=== PATIENT | male | born 1940 | race Caucasian/White ===

== ENCOUNTER 2019-11-25 06:25 | Day surgery (SDC) | payer OTHER, MEDICARE ==
--- OUTSIDE RECORDS SUMMARY | 2019-11-25 06:29 | XMS REPORT | Continuity of Care Document ---
:1940 Author Organization [facility] t Address [facility] [place] [address] Care Team Providers Name Role Phone Sue Hicks DO Primary Care Physician Juan REDD R. Attending Clinician Lisa Lawrence MA Attending Clinician Unavailable Kailey MALAVE Attending Clinician Unavailable Octavio REDD T Attending Clinician JUAN Admitting Clinician Unavailable Payers Payer Name Policy Policy Number Effective Expiration Source Type Date Date MEDICAREMEDICARE PART xxxxxxxxxxx 2003 Kareem Bueno AND 00:00:00 Scientologist [place]/03/2003[place] [facility] [place] x[facility]xx 2017 [place] SUPPLEMENTxxxxxxxxxxx 00:00:00 Met juanpablo 2017-Oliver rcial Problems Condition Condition Condition Status Onset Resolution Last Treating Co mments Source Name Details Category Date Date Treatment Clinician Date Abnormal Abnormal Disease Active [place] stress stress 6-19 [facility] test test 00:00: st 00 History of History of Disease Active [facility] [place] coronary coronary 1- Method i artery artery 00:00: st stent stent 00 placement placement Chest pain Chest pain Disease Active [place] - [facility] 00:00: st 00 SOB SOB Disease Active [place] (shortness (shortness 7-23 Me thodi of breath) of breath) 00:00: st 00 Coronary Coronary Disease Active [place] artery artery 02 [facility] disease disease 00:00: st involving involving 00 [place] coronary coronary artery of artery of [place] heart heart without without angina angina pectoris pectoris Hyperlipid Hyperlipid Disease Active 2015-03 H bar[place] emia emia 0-17 [facility] 00:00: st 00 Essential Essential Disease Active 2015-03 Y[facility] [address]on hypertensi hypertensi 0-17 Me thodi on on 00:00: st 00 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 Family History Family Member Diagnosis Comments Start Date Stop Date Source Natural brother CABG/Stent [facility] ramu Natural brother Heart attack [place] Scientologist Social History Social Habit Start Date Stop Date Quantity Comments Source Sex Assigned At [facility] Alcohol intake 2019-10-06 2019-10-06 [facility]:00:00 non-drinker of alcohol (finding) Smoking Status Start Date Stop Date Source Never smoker [place] Jo-Ann t Medications Ordered Filled Start Stop Current Ordering Indication Dosage Frequency Signature Comments Components Source Medication Medication Date Date Medication? Clinician (SIG) Name Name colesevelam 2020-0 Yes 1875mg Take 1,875 Franks (WELCHOL) 7-28 mg by [facility] 625 mg 13:08: mouth st tablet 05 daily. aspirin 2020-0 Yes aspirin 81 [place] (ECOTRIN) 7-28 mg [facility] 81 MG 13:08: tablet,del st enteric 05 ayed coated release tablet Take 1 tablet every day by oral route. calcium 2020-0 Yes 1{tbl} QD Take 1 [place] crb,cit-D3- 10-05 tablet by Met hodi [id number] 13:08: mouth st (CITRACAL + 05 daily. BONE DENSITY) 300-200-13. 5 mg-unit-mg tablet BIOTIN ORAL 2020-0 Yes [id number] QD Take Yves ston - 10,000 mcg Methodi 13:08: by mouth st 05 daily. BUMETanide 2020-0 Yes 1mg Q.5D Take 1 mg [place] (BUMEX) 1 10-05 by mouth 2 Meth jesica MG tablet 13:08: (two) st 05 times a day. potassium 2020-0 Yes 10meq Q.5D Take 10 [place] chloride 7-28 mEq by [facility] (MICRO-K) 13:08: mouth 2 st 10 MEQ CR 05 (two) capsule times a day. cycloSPORIN 2019-0 Yes 1[drp] QD Administer Franks E - 1 drop to [facility] (RESTASIS) 13:08: both eyes st 0.05 % 05 daily. ophthalmic emulsion INSULIN Yes Inject Franks SUBCUTANEOU 10-05 under the Met hodi S PUMP, 13:08: skin st HUMALOG, 05 continuous 100 ly. UNITS/ML INSULIN PUMP INFUSION (HumaLOG) cyanocobala 2020- No 1mL 1 mL. [place] min 1,000 09-02 06-25 [facility] mcg/mL 11:11: 00:00 st injection 39 :00 amLODIPine Yes 10mg Q.5D Take 1 [place] (NORVASC) -22 tablet (10 Meth jesica 10 mg 00:00: mg total) st tablet 00 by mouth 2 (two) times a day. gabapentin Yes 1200mg Q.5D Take 1,200 [facility] (NEURONTIN) 1-10 mg by [facility] 300 mg 00:00: mouth 2 st capsule 00 (two) times a day. omeprazole 2017- Yes [facility] (PriLOSEC) 5-01 [facility] 20 MG 00:00: st capsule 00 VASCEPA 1 Yes 1g QD Take 1 g [place] gram 07-07 by mouth [facility] capsule 00:00: daily. st 00 spironolact 2016- Yes 50mg Q.5D 50 mg 2 [place] one 07-07 (two) [facility] (ALDACTONE) 00:00: times a st 25 MG 00 day. tablet hydroCHLORO 2020- No 25mg Q.5D 25 mg 2 [place] thiazide 07-07- (two) [facility] (HYDRODIURI 00:00: 00:[address] L) 25 MG 00 :00 day. tablet amLODIPine 2020- No QD daily. [place] (NORVASC) 4-04 06-22 [facility] 10 mg 00:00: 00:00 st tablet 00 :00 SYNTHROID 2017- Yes 100ug QD Take 100 Y[facility] ston 100 mcg 3-01 mcg by [facility] tablet 00:00: mouth st 00 daily. telmisartan 2020- No [place] (MICARDIS) 05-09 [facility] 80 MG 00:00: 00:00 st tablet 00 :00 escitalopra Yes 10mg QD Take 10 mg Franks m (LEXAPRO) 05-04 by mouth Meth jesica 10 MG 00:00: daily. st tablet 00 HUMALOG 100 2019- No [place] unit/mL 04-16 [facility] injection 00:00: 00:00 st 00 :00 Vital Signs Vital Name Observation Time Observation Value Comments Source Systolic blood 2019-10-06 13:07:00 139 mm[Hg] [place] Scientologist pressure Diastolic blood 2019-10-06 13:07:00 65 mm[Hg] Gabri[place] on Scientologist pressure Heart rate 2019-10-06 13:07:00 65 /min [place] Body height 2019-10-06 13:07:00 182.9 cm [place] Body weight 2019-10-06 13:07:00 109.317 kg [place] BMI 2019-10-06 13:07:00 32.69 kg/m2 [place] Respiratory rate 2019-09-03 15:00:00 14 /min [place] Scientologist Oxygen saturation in 2019-09-03 15:00:00 99 /min [place] Arterial blood by Pulse oximetry Body temperature 2019-09-03 13:40:00 36.11 Roslyn [place] Scientologist Procedures Procedure Date / Time Performed Performing Clinician Sourc e POC GLUCOSE 2019-09-03 13:45:00 Raegan Martinez odfreddy CV SELECTIVE CORONARY 2019-09-03 13:18:58 Raegan Martinez ANGIOGRAPHY ESTIMATED GFR 2019-09-03 11:43:00 Raegan Martinez Meth odist POC PANEL 2019-09-03 11:43:00 Raegan Martinez odfreddy BASIC METABOLIC PANEL 2019-09-03 11:40:00 Raegan Martinez Scientologist ESTIMATED GFR 2019-09-03 11:40:00 Raegan Martinez odist POC GLUCOSE 2019-09-03 10:44:00 Raegan Martinez Meth odfreddy TTE COMPLETE, WO 2019-08-28 13:53:00 Raegan Martinez Met hodist CONTRAST, W DOPPLER ([id number]) COMPREHENSIVE METABOLIC 2019-08-28 12:48:00 Raegan Martinez Scientologist PANEL HC COMPLETE BLD COUNT 2019-08-28 12:48:00 Raegan Martinez Scientologist W/AUTO DIFF PROTHROMBIN TIME WITH INR 2019-08-28 12:48:00 Raegan Martinez [place] Scientologist ESTIMATED GFR 2019-08-28 12:48:00 Raegan Martinez Meth odist ECG 12-LEAD 2019-08-28 11:24:35 Raegan Martinez Meth odist Plan of Care Planned Activity Planned Date Details Comments Source Future Scheduled 2019-11-10 INFLUENZA VACCINE [place] Scientologist Test 00:00:00 [code = INFLUENZA VACCINE] Future Scheduled 2003 65+ PNEUMOCOCCAL [place] Scientologist Test 00:00:00 VACCINE (1 of 2 - PCV13) [code = 65+ PNEUMOCOCCAL VACCINE (1 of 2 - PCV13)] Future Scheduled 1988 SHINGLES VACCINES (#1) [place] Scientologist Test 00:00:00 [code = SHINGLES VACCINES (#1)] Future Scheduled 1948 DIABETIC FOOT EXAM [place] Scientologist Test 00:00:00 [code = DIABETIC FOOT EXAM] Future Scheduled 1948 URINE MICROALBUMIN [place] Scientologist Test 00:00:00 [code = URINE MICROALBUMIN] Future Scheduled 1938 DIABETIC RETINAL EYE Y[facility] st[place] Scientologist Test 00:00:00 EXAM [code = DIABETIC RETINAL EYE EXAM] Encounters Start End Encounter Admission Attending Care Care Encounter Source Date/Time Date/Time Type Type Clinicians Facility Department ID 2019-10-06 2019-10-06 Outpatient [facility] [id number] [place] 00:00:00 00:00:00 RAEGAN [address] 2019-09-03 2019-09-03 Outpatient [facility] [id number] [place] 00:00:00 00:00:00 RAEGAN [address] 2019-08-28 2019-08-28 Outpatient [facility] [id number] 356 [place] 00:00:00 00:00:00 RAEGAN [address] 2019-08-28 2019-08-28 [facility] [id number] 279 [place] 00:00:00 00:00:00 RAEGAN 729 Method i 2019-08-28 2019-08-28 Outpatient [facility] [id number] 356 [place] 00:00:00 00:00:00 RAEGAN [address] 2019-06-03 2019-07-28 Telemedici Octavio [facility] [id number] 08:33:49 08:57:17 ne Visit Romero Pritchett [id number] [place] [id number] [facility] [id number] nal 085 Building Results Test Description Test Time Test Comments Results Result Sourc e Comments 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 The right radial artery was located, skin was infiltrated was lidocaine. The artery was accessed using the Seldinger technique, and a 6F glidesheath was inserted. NTG and verapamil were administered intra-arterially via sheath. Heparin was administered intravenously. An AL1 catheter was advanced over a "baby-J" wire and selective coronary angiography was performed, standard views were obtained. The right radial sheath was removed and TR band was applied Findings: LM: normal LAD: proximal 60% stenosis; moderate diffuse diseaseLCx: mild diffuse disease; om2 with CORPORATE DIRECTOR OF H[employer] RESOURCES segmentRCA: anomalous take off. Moderate diffuse atherosclerosis with 40 and 50% stenosis in the mid and distal segments Recommendations:For now medical treatment of CADPatient is to FU with his PCP for the work up and treatment of anemia and CKD.Will FU as outpatient and decide on further revascularization (PCI vs CABG) options once anemia is better. Anesthesia Under my supervision, 2 mg of versed were administered intravenously for moderate sedation. Pulse oxymetry, heart rate and blood pressure were continuously measured by an independent trained observer present. I spent 14 minutes of face to face attendance with the patient during sedation. POC glucose 2019-09-03 13:47:32 Test Item Value Reference Range Interpretation Comme nts POC glucose (test code = 86 mg/dL 65-99 Ope rator Name: Lidia Cortez [id number]) ID: [id number] hartable: [facility] Notified NELA BuschistBasic metabolic [id number] 12:26:54 Test Item Value Reference Range Interpretation Comments Sodium (test code = 2951-2) 126 135- 148 mEq/L L Potassium (test code = 2823-3) 5.6 3.5- 5.0 mEq/L H Chloride (test code = 2075-0) 94 98- 112 mEq/L L CO2 (test code = 8-9) 19 24- 31 mEq/L L Anion gap (test code = 35674-1) 13@ANIO 7- 15 mEq/L BUN (test code = 3094-0) 23 mg/dL 8-23 Creatinine (test code = 2160-0) 1.60 mg/dL 0.7-1.2 H Glucose (test code = 2345-7) 83 mg/dL 65-99 Calcium (test code = 88657-9) 8.9 mg/dL 8.8-10.2 Lab Interpretation (test code = Abnormal 73397-8) [facility] [id number] 11:47:23 Test Item Value Reference Range Interpretation Comments POC sodium (test code = 127 mmol/L 135-148 L 2947-0) POC potassium (test 5.5 mmol/L 3.5-5 H code = 6298-4) POC chloride (test code 96 mmol/L 99-109 L = 2069-3) POC CO2 (test code = 20 mmol/L 24-31 L 79364-5) POC glucose (test code 82 mg/dL 65-99 = 2339-0) POC BUN (test code = 23 mg/dL 8-24 6299-2) POC creatinine (test 1.6 mg/dl 0.7-1.2 H code = 18208-2) POC hematocrit (test 26 % 41-51 L code = 4544-3) POC anion gap (test 17 mmol/L 8-20 Medical Technician Name: code = [id number]) Deyvi Childress Alfredo ID: [id number] Lab Interpretation Abnormal (test code = 20080-4) Franks MethodistEstimated [id number] 11:47:23 Test Item Value Reference Range Interpretation Comments Estimated GFR (test 40 mL/min/1.73 m2 A Caterg ory Units code = 45895-2) Interpretati onG1 >=90 Adela l or highG2 60-89 Mildly decrease dG3a 45-59 Mil dly to moderately decr iitxaJ5a 30-44 Moderately to s everely decreasedG4 15-29 Severe ly decreasedG5 <15 Kidney jemma Sayra eGFR was calcul ated using the Chron Kidney Disease Epidemiology Collaboration ( CKD-EPI) equation. Interpretation is based on recommendati ons of the National [facility]-Kidn ey Disease Outcome s Quality Initiat misa (NKF-KDOQI) pub lished in 2013. Lab Interpretation Abnormal (test code = 37391-3) Golden MethodistECG 12 [id number] 14:41:07 Test Item Value Reference Range Interpretation Comments Ventricular rate (test 66 code = 253) Atrial rate (test code 66 = 255) [place] interval (test code 202 = 266) QRSD interval (test 96 code = 260) QT interval (test code 402 = 264) QTC interval (test code 421 = 265) P axis 1 (test code = 40 267) QRS axis 1 (test code = -35 268) T wave axis (test code -6 = 270) EKG impression (test Normal sinus code = 273) rhythm-Left axis deviation-Minimal voltage criteria for LVH, may be normal variant-Nonspecific ST abnormality-Abnormal ECG-In automated comparison with ECG of 30-SEP-2018 13:41,-QRS duration has decreased-T wave inversion less evident in Inferior leads- Rfanks MethodistComprehensive metabolic [id number] 13:49:53 Test Item Value Reference Range Interpretation Comments Sodium (test code = 124 135- 148 mEq/L L 2951-2) Potassium (test code = 5.9 3.5- 5.0 mEq/L H 2823-3) Chloride (test code = 98 98- 112 mEq/L 5-0) CO2 (test code = 2027-9) 16 24- 31 mEq/L L Anion gap (test code = 10@ANIO 7- 15 mEq/L 19310-7) BUN (test code = 3094-0) 30 mg/dL 8-23 H Creatinine (test code = 1.53 mg/dL 0.7-1.2 H 2160-0) Glucose (test code = 103 mg/dL 65-99 H 2345-7) Calcium (test code = 9.1 mg/dL 8.8-10.2 74374-1) Protein (test code = 6.7 g/dL 6.3-8.3 -[place] n 2885-2) 4.6-7.0 g/dL1 week 4.4-7 .6 g/dL7 months-1y ear 5.1-7 .3 g/dL1-2 years 5.6-7 .5 g/dL>3 years 6.0-8 .0 g/yU30-942 6.3-8 .3 g/dL Albumin (test code = 3.2 g/dL 3.5-5 L 175-7) A/G ratio (test code = 0.9 0.7-3.8 1759-0) Alkaline phosphatase 111 U/L 40-129 (test code = 6768-6) AST (test code = 1920-8) 32 U/L 10-50 ALT (test code = 1742-6) 30 U/L 5-50 Total bilirubin (test 0.5 mg/dL 0-1.2 code = 1974-2) Lab Interpretation (test Abnormal code = 47429-9) Golden BuschistProthrombin time with [id number] 13:28:44 Test Item Value Reference Range Interpretation Comments Prothrombin time (test 15.1 11.5- 14.5 sec H code = 5902-2) INR (test code = 1.2 The Interna tional 85129-0) Normalized Rati o (INR) is a therapeuti c monitoring tool for patients who ar e stable on oral anticoagulant t herapy. An INR of 2.0-3 .0 is suggested for d eep vein thrombosis/pulm onary embolism. Lab Interpretation Abnormal (test code = 28303-0) Golden MethodistCBC with platelet and [id number] 13:15:52 Test Item Value Reference Range Interpretation Comments WBC (test code = 22916-8) 6.83 4.50- 11.00 k/uL RBC (test code = 41936-0) 2.83 m/uL 4.4-6 L HGB (test code = 718-7) 8.4 g/dL 14-18 L HCT (test code = 4544-3) 25.8 % 41-51 L MCV (test code = 787-2) 91.2 fL 82-100 MCH (test code = 785-6) 29.7 pg 27-34 MCHC (test code = 786-4) 32.6 g/dL 31-37 RDW - SD (test code = 49.1 fL 37-55 94935-5) MPV (test code = 06270-1) 9.0 fL 8.8-13.2 Platelet count (test code 258 150- 400 k/uL = 76120-7) Nucleated RBC (test code 0.00 /100 WBC = 26110-8) Neutrophils (test code = 77.0 % 39-69 H 96791-5) Lymphocytes (test code = 7.9 % 25-45 L 31129-0) Monocytes (test code = 12.9 % 0-10 H 59315-6) Eosinophils (test code = 1.5 % 0-5 03164-1) Basophils (test code = 0.3 % 0-1 22960-0) Immature granulocytes 0.4 % 0-1 "Immat ure (test code = 49314-3) granul ocytes" (promyelocytes, myelocytes, metamyelocytes) Lab Interpretation (test Abnormal code = 22932-8) Golden Deleon
--- OUTSIDE RECORDS SUMMARY | 2019-11-25 06:29 | XMS REPORT | Clinical Summary ---
:1940 Author Organization [facility] Address [address] [place] [address] Care Team Providers Name Role Phone Sue Hicks DO Primary Care Provider Allergies Active Allergy Reactions Severity Noted Date Comments No Known Drug Allergies 12/26/2015 Medications Medication Sig Dispensed Refills Start End Status Date Date colesevelam (WELCHOL) Take 1,875 mg 0 Active 625 mg tablet by mouth daily. escitalopram (LEXAPRO) Take 10 mg by 0 05/04/19 Active 10 MG tablet mouth daily. 17 VASCEPA 1 gram capsule Take 1 g by 0 07/08/19 Active mouth daily. 17 SYNTHROID 100 mcg Take 100 mcg 0 05/10/19 Active tablet by mouth 17 daily. omeprazole (PriLOSEC) 0 07/10/19 Active 20 MG capsule 17 spironolactone 50 mg 2 (two) 0 07/08/19 A ctive (ALDACTONE) 25 MG times a day. 17 tablet aspirin (ECOTRIN) 81 MG aspirin 81 mg tablet,delayed release 0 Active enteric coated tablet Take 1 tablet every day by oral route. calcium Take 1 tablet 0 Active crb,[id number]-[id number]-genis by mouth (CITRACAL + BONE daily. DENSITY) 300-200-13.5 mg-unit-mg tablet gabapentin (NEURONTIN) Take 1,200 mg 0 03/20/19 Active 300 mg capsule by mouth 2 20 (two) times a day. BIOTIN ORAL Take 10,000 0 Active mcg by mouth daily. amLODIPine (NORVASC) 10 Take 1 tablet 180 tablet 0 08/31/19 Active mg tablet (10 mg total) 20 by mouth 2 (two) times a day. BUMETanide (BUMEX) 1 MG Take 1 mg by 0 Active tablet mouth 2 (two) times a day. potassium chloride Take 10 mEq 0 Active (MICRO-K) 10 MEQ CR by mouth 2 capsule (two) times a day. cycloSPORINE (RESTASIS) Administer 1 0 Active 0.05 % ophthalmic drop to both emulsion eyes daily. INSULIN SUBCUTANEOUS Inject under 0 Active PUMP, HUMALOG, 100 the skin UNITS/ML INSULIN PUMP continuously. INFUSION (HumaLOG) amLODIPine (NORVASC) 10 daily. 0 06/13/19 Discontinued mg tablet 17 020 (Reorder) hydroCHLOROthiazide 25 mg 2 (two) 0 07/08/19 Discontinued (HYDRODIURIL) 25 MG times a day. 17 020 tablet HUMALOG 100 unit/mL 0 04/16/19 Discontinued injection 17 020 telmisartan (MICARDIS) 0 05/10/19 Discontinued 80 MG tablet 17 020 (Formul alexus change) cyanocobalamin 1,000 1 mL. 0 Discontinued mcg/mL injection 020 Active Problems Problem Noted Date Abnormal stress test 08/28/2019 History of coronary artery stent placement 03/31/2019 Chest pain 09/30/2018 SOB (shortness of breath) 09/30/2018 Coronary artery disease involving [place] coronary chapin ry of [place] heart 07/10/2016 without angina pectoris Hyperlipidemia 12/26/2015 Essential hypertension 12/26/2015 Atherosclerosis of coronary artery 12/26/2015 Encounters Date Type Specialty Care Team Description 10/06/2019 Office Visit Cardiology Raegan Martinez Coronary artery disease involving [place] coronary artery of [place] heart without angina pectoris (Primary Dx); MD Elina SOB (shortness of breath); Exposure to KATHERYN S-associated coronavirus 10/05/2019 Travel 09/25/2019 Telephone Gastroenterology Ashlyn Lawrence MA 09/03/2019 Surgery Procedural Cardiology Raegan Martinez coronary MD Elina angiography [93 [id number] (CPT)] 09/03/2019 Hospital Procedural Cardiology Raegan Martinez Chest pain, unspecified type; Encounter MD Elina SOB (shortness of breath); Abnormal stress test; CAD in [place] a rtery 09/03/2019 Travel 09/02/2019 Travel 08/31/2019 Telephone Cardiology Kameron Bonner MA Results (Labs) 08/31/2019 Orders Only Cardiology Kameron Bonner MA 08/28/2019 Lab Lab Raegan Martinez Chest pain, uns pecified (Primary Dx); MD Elina Abnormal result of other cardiovascular function study; Encounter for p reprocedural laboratory examination; Shortness of br eath 08/28/2019 Office Visit Cardiology Raegan Martinez Chest pain, uns pecified type (Primary Dx); MD Elina SOB (shortness of breath); Abnormal stress test; Pre-operative l aboratory examination; CAD in [place] a rtery 08/27/2019 Travel 08/27/2019 Telephone Cardiology Kameron Bonner MA Chest Pain 03/31/2019 Office Visit Cardiology Raegan Martinez CAD in [place] a rtery (Primary Dx); MD Elina History of james nary artery stent placement after 11/24/2018 Family History Medical History Relation Name Comments CABG/Stent Brother Heart attack Brother Relation Name Status Comments Brother Social History Tobacco Use Types Packs/Day Years Used Date Never Smoker Smokeless Tobacco: Never Used Alcohol Use Drinks/Week oz/Week Comments No Sex Assigned at Date Recorded Not on file Job Start Date Occupation Industry Not on file Not on file Not on file Travel History Travel Start Travel End No recent travel history available. Last Filed Vital Signs Vital Sign Reading Time Taken Comments Blood Pressure 139/65 10/06/2019 1:07 PM CDT Pulse 65 10/06/2019 1:07 PM CDT Temperature 36.1 C (97 F) 09/03/2019 1:40 PM CDT Respiratory Rate 14 09/03/2019 3:00 PM CDT Oxygen Saturation 99% 09/03/2019 3:00 PM CDT Inhaled Oxygen Concentration - - Weight 109 kg (241 lb) 10/06/2019 1:07 PM CDT Height 182.9 cm (6') 10/06/2019 1:07 PM CDT Body Mass Index 32.69 10/06/2019 1:07 PM CDT Plan of Treatment Health Maintenance Due Date Last Done Comments DIABETIC RETINAL EYE EXAM 1940 DIABETIC FOOT EXAM 1948 URINE MICROALBUMIN 1948 SHINGLES VACCINES (#1) 1988 65+ PNEUMOCOCCAL VACCINE (1 of 2 - PCV13) 2003 INFLUENZA VACCINE 11/10/2019 Procedures Procedure Name Priority Date/Time Associated Diagnosis Comme nts POC GLUCOSE Routine 09/03/2019 1:45 Results for this PM CDT procedure are i n the results section. CV SELECTIVE CORONARY Routine 09/03/2019 1:18 Chest pain, Re sults for this ANGIOGRAPHY PM CDT unspecified type procedure are in SOB (shortness of the result s breath) section. Abnormal stress test CAD in [place] artery POC PANEL Routine 09/03/2019 11:43 Results for this AM CDT procedure are i n the results section. ESTIMATED GFR Routine 09/03/2019 11:43 Results fo r this AM CDT procedure are i n the results section. ESTIMATED GFR STAT 09/03/2019 11:40 Results fo r this AM CDT procedure are i n the results section. BASIC METABOLIC PANEL STAT 09/03/2019 11:40 Re sults for this AM CDT procedure are i n the results section. POC GLUCOSE Routine 09/03/2019 10:44 Results for this AM CDT procedure are i n the results section. TTE COMPLETE, WO STAT 08/28/2019 1:53 Chest pain, Results for this CONTRAST, W DOPPLER PM CDT unspecified type procedure are in ([id number]) SOB (shortness of the result s breath) section. Abnormal stress test ESTIMATED GFR Routine 08/28/2019 12:48 Results fo r this PM CDT procedure are i n the results section. PROTHROMBIN TIME WITH Routine 08/28/2019 12:48 Chest pain, Re sults for this INR PM CDT unspecified procedure are in Abnormal result of the resul ts other cardiovascular section . function study Encounter for preprocedural laboratory exami nation Shortness of breath HC COMPLETE BLD COUNT Routine 08/28/2019 12:48 Chest pain, Re sults for this W/AUTO DIFF PM CDT unspecified procedure are in Abnormal result of the resul ts other cardiovascular section . function study Encounter for preprocedural laboratory exami nation Shortness of breath COMPREHENSIVE Routine 08/28/2019 12:48 Chest pain, Results fo r this METABOLIC PANEL PM CDT unspecified procedure are in Abnormal result of the resul ts other cardiovascular section . function study Encounter for preprocedural laboratory exami nation Shortness of breath ECG 12-LEAD Routine 08/28/2019 11:24 Chest pain, Results for this AM CDT unspecified type procedure are in SOB (shortness of the result s breath) section. after 11/24/2018 Results POC glucose (09/03/2019 1:45 PM CDT)Only the most recent of2 resultswithin the time period is included. 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 Procedure details [facility] After obtaining informed consent, the patient was brou ght to the cardiac catheterization suite. The right radial artery was located, skin was infiltra lincoln was lidocaine. The artery was accessed using the [place] technique, and a 6F glidesheath was inserted. NTG and verapamil were admin istered intra-arterially via sheath. Heparin was administered intravenously. An AL1 catheter was advanced over a "baby-J" wire and cruz ective coronary angiography was performed, standard views were obtaine d. The right radial sheath was removed and TR band was ap plied Findings: LM: normal LAD: proximal 60% stenosis; moderate diffuse disease LCx: mild diffuse disease; om2 with GAMB CUTTER segment RCA: anomalous take off. Moderate diffuse atherosclero sis with 40 and 50% stenosis in the mid and distal segments Recommendations: For now medical treatment of CAD Patient is to FU with his PCP for the work up and chrystal tment of anemia and CKD. Will FU as outpatient and decide on further revascular ization (PCI vs CABG) options once anemia is better. Anesthesia Under my supervision, 2 mg of versed were administered intravenously for moderate sedation. Pulse oxymetry, heart rate and blood pressure were con tinuously measured by an independent trained observer present. I spent 14 minutes of face to face attendance with the patient during sedation. Performing Organization Address City/[facility] [address]/Zipcode Phone Number [facility] [address] [place] [address], Estimated GFR (09/03/2019 11:43 AM CDT)Only the most recent of3 resultswithin the time period is included. Pathologist [facility] Estimated GFR 40 (A) mL/min/1.73 [facility] Comment: m2 HOSPITAL Catergory Units Interpretation G1 >=90 Normal or high G2 60-89 Mildly decreased G3a 45-59 Mildly to moderately decreas ed G3b 30-44 Moderately to severely decre ased G4 15-29 Severely decreased G5 <15 Kidney failure The eGFR was calculated using the Chronic Kidney Disea se Epidemiology Collaboration (CKD-EPI) equation. Interpretation is based on recommendations of the National Kidney Foundation-Kidney Disease Outcomes Chris lity Initiative (NKF-KDOQI) published in 2014. Specimen Blood Performing Organization Address City/[facility] [address]/[facility] Phone Number [facility] DEPARTMENT OF PATHOLOGY AND [address] [place] [address] [address] POC panel (09/03/2019 11:43 AM CDT) [facility] POC sodium 127 (L) 135 - 148 [facility] mmol/L [facility] POC potassium 5.5 (H) 3.5 - 5.0 [facility] mmol/L [facility] POC chloride 96 (L) 99 - 109 [facility] mmol/L [facility] POC CO2 20 (L) 24 - 31 mmol/L [facility] POC glucose 82 65 - 99 mg/dL [facility] POC BUN 23 8 - 24 mg/dL [facility] POC creatinine 1.6 (H) 0.7 - 1.2 [facility] mg/dl [facility] POC hematocrit 26 (L) 41 - 51 % [facility] POC anion gap 17 8 - 20 mmol/L [facility] Comment: HOSPITAL [facility] Name: Deyvi Ricardo Device ID: [id number] Specimen Performing Organization Address City/[facility] [address]/[facility] Cent[facility]ode Phone Number [facility] DEPARTMENT OF PATHOLOGY AND [address] [place], [place] [phone] [address] [address] Basic metabolic panel (09/03/2019 11:40 AM CDT) [facility] nature Sodium 126 (L) 135 - 148 mEq/L [facility] Potassium 5.6 (H) 3.5 - 5.0 mEq/L [facility] Chloride 94 (L) 98 - 112 mEq/L [facility] CO2 19 (L) 24 - 31 mEq/L [facility] Anion gap 13@ANIO 7 - 15 mEq/L [facility] BUN 23 8 - 23 mg/dL [facility] Creatinine 1.60 (H) 0.70 - 1.20 mg/dL [facility] Glucose 83 65 - 99 mg/dL [facility] Calcium 8.9 8.8 - 10.2 mg/dL [facility] Specimen Blood Performing Organization Address City/State/Zipcode Phone Number [facility] DEPARTMENT OF PATHOLOGY AND [address] [place], [place] [address] GENOMIC MEDICINE [facility] [address] [place] [address] Transthoracic Echocardiogram Complete, (w Contrast, Strain and 3D if needed) (08/28/2019 1:53 PM CDT) Specimen Narrative Performed At [facility] Echo [facility]ography Report Pat.Name: RAYMON DONATO Pat.ID: [id number] .Date: 08/28/2019 Refer.MD: RAEGAN MARTINEZ MD Exam Time: 1:17:00 PM Study Type:R outine Echo Height: 72in Weight: 247lb BSA: 2.33 m2 Ag e: 1940,79Y Sex: MALE BP: 171/78 HR: 66 bpm Sonogrphr: Daviduthavaernesto Veerasamy, RDCS, RVS Pat. Stat.:Outpatient Room: [facility] Tape Vol: MDCA, ICD - 9: R07.9, R06.02, R94.39 Study Status:Final Echo Event ID:[id number] Order ID: [id number] Reason for Study:Chest pain, unspecified type [R07.9 (ICD-10-CM)]; SOB (shortness of breath)[R06.02 (ICD-10-CM)]; Abnormal st ress test [R94.39 (ICD-10-CM)] Procedures: 2D Echo, Colorflow Doppler, Strain Race: SUMMARY: LV size is normal. LV EF is normal. Mild to moderate mitral regurgitation. Estimated PA systolic pressure is 70 mmH g, assuming a mean RAP of 5 mmHg. FINDINGS: LV: LV size is normal. Normal a verage LV global longitudinal strain at -18%. LV EF is normal. Overall wall motion is normal. Estimated EF is 6 0-64%. RV: RV size is normal. RV systo lic function is normal. LA: LA volume is severely enlar ged. RA: RA size is normal. AO: Aortic root diameter is nor mal. AMANDA: No pericardial effusion. AV: No structural AV abnormalit ies noted. MV: Mild mitral annular calcifi cation. Mild to moderate mitral regurgitation. PV: Pulmonic valve not well see n. TV: No structural TV abnormalit ies noted. Mild tricuspid regurgitation King: Diastolic dysfunction Grade II (Moderate): Impaired relaxation with elevated LV filling pressures. Other: Estimated PA systolic pressu re is 70 mmHg, assuming a mean RAP of 5 mmHg. MEASUREMENTS: DOPPLER LVOT Stroke Vol LVOT TVI 35 cm LVOT LVOT SV 63 ml SVi 27 ml/m MV Forward Flow MV pkVel 165 cm/s MV Mean G 3.9 mmHg MV pkPG 11 mmHg MV TVI 44 cm 2D Parasternal Long [place] Ao An 1.8 cm LVPWd 1.1 cm Ao Rtd 1.7 cm Index 0.73 cm/m2 LA Ds 4.5 cm IVSd 0.92 cm RWT 0.44 LVIDd 4.9 cm Index 2.1 cm/m2 LV Mass 176 g (122-1 74)* LVIDs 3.7 cm LVM In dex 76 g/m LV%fs 24 % LVOT 1.5 cm LA Volume LA Vol 141 ml Index 60 ml/m2 LVOT LVOT Area 1.8 cm Signed 08/28/2019 02:37 PM Bjorn Caal MD Procedure Note Interface, Radiology Results In - 2019 2:37 PM CDT [facility] Echocardiography Report Pat.Name: RAYMON DONATO Pat.I D: [id number] St.Date: 08/28/2019 Refer .MD: RAEGAN MARTINEZ MD Exam Time: 1:17:00 PM Study Type:Routine Echo Height: 72in Weigh t: 247lb BSA: 2.33 m2 Age: 2 1940,79Y Sex: MALE BP: 171/78 HR: 66 bpm Sonogrphr: Jon Cohen RDCS, RVS Pat. Stat.:Outpatient Room: [facility] Tape Vol: MDCA, ICD - 9: R07.9, R06.02, R94.39 Study Status:Final Echo Event ID:[id number] Order ID: [id number] Reason for Study:Chest pain, unspecified type [R07.9 (ICD-10-CM)]; SOB (shortness of breath)[R06.02 (ICD-10-CM)]; Abnormal st ress test [R94.39 (ICD-10-CM)] Procedures: 2D Echo, Colorflow Doppler, Strain Race: SUMMARY: LV size is normal. LV EF is normal. Mild to moderate mitral regurgitation. Estimated PA systolic pressure is 70 mmH g, assuming a mean RAP of 5 mmHg. FINDINGS: LV: LV size is normal. Normal aver age LV global longitudinal strain at -18%. LV EF is mehran l. Overall wall motion is normal. Estimated EF is 60-64% . RV: RV size is normal. RV systolic function is normal. LA: LA volume is severely enlarged . RA: RA size is normal. AO: Aortic root diameter is normal . AMANDA: No pericardial effusion. AV: No structural AV abnormalities noted. MV: Mild mitral annular calcificat ion. Mild to moderate mitral regurgitation. PV: Pulmonic valve not well seen. TV: No structural TV abnormalities noted. Mild tricuspid regurgitation King: Diastolic dysfunction Grade II (Moderate): Impaired relaxation with elevated LV fi lling pressures. Other: Estimated PA systolic pressure is 70 mmHg, assuming a mean RAP of 5 mmHg. MEASUREMENTS: DOPPLER LVOT Stroke Vol LVOT TVI 35 cm LVOT LVOT SV 63 ml SVi 27 ml/m MV Forward Flow MV pkVel 165 cm/s MV M martinez G 3.9 mmHg MV pkPG 11 mmHg MV T 44 cm 2D Parasternal Long [place] Ao An 1.8 cm LVPW d 1.1 cm Ao Rtd 1.7 cm Inde x 0.73 cm/m2 LA Ds 4.5 cm IVSd 0.92 cm RWT 0.44 LVIDd 4.9 cm Inde x 2.1 cm/m2 LV Mass 176 g (122-174)* LVIDs 3.7 cm LVM Index 76 g/m LV%fs 24 % LVOT 1.5 cm LA Volume LA Vol 141 ml Inde x 60 ml/m2 LVOT LVOT Area 1.8 cm Signed 08/28/2019 02:37 PM Bjorn Caal MD Performing Organization Address City/State/Zipcode Phone Number [facility] [address] [place] [address] Prothrombin time with INR (08/28/2019 12:48 PM CDT) Prothrombin time 15.1 (H) 11.5 - 14.5 [facility] INR 1.2 [place] Comment: [facility] International Normalized Ratio (INR) is a therapeu [facility] HOSPITAL monitoring tool for patients who are stable on oral anticoagulant therapy. An INR of 2.0-3.0 is suggested for deep vein thrombosis/pulmonary embolism. Specimen Blood Performing Organization Address City/[facility] [address]/Zipcode Phone Number [facility] DEPARTMENT OF PATHOLOGY AND [address] [place] [address] [phone] [address] CBC with platelet and differential (08/28/2019 12:48 PM CDT) WBC 6.83 4.50 - 11.00 [facility] k/uL HOSPITAL RBC 2.83 (L) 4.40 - 6.00 [facility] m/uL [facility] HGB 8.4 (L) 14.0 - 18.0 [facility] g/dL [facility] HCT 25.8 (L) 41.0 - 51.0 % [facility] MCV 91.2 82.0 - 100.0 [facility] MCH 29.7 27.0 - 34.0 pg [facility] MCHC 32.6 31.0 - 37.0 [facility] RDW - SD 49.1 37.0 - 55.0 fL [facility] MPV 9.0 8.8 - 13.2 fL [facility] Platelet count 258 150 - 400 k/uL [facility] Nucleated RBC 0.00 /100 WBC [facility] Neutrophils 77.0 (H) 39.0 - 69.0 % [facility] Lymphocytes 7.9 (L) 25.0 - 45.0 % [facility] Monocytes 12.9 (H) 0.0 - 10.0 % [facility] Eosinophils 1.5 0.0 - 5.0 % [facility] Basophils 0.3 0.0 - 1.0 % [facility] Immature granulocytes 0.4Comment: 0.0 - 1.0 % [facility] "Immature [facility] granulocytes" (promyelocytes , myelocytes, metamyelocytes ) Specimen Blood Performing Organization Address City/[facility] [address]/Zipcode Phone Number [facility] DEPARTMENT OF PATHOLOGY AND [address] [place] [address] [phone] [address] Comprehensive metabolic panel (08/28/2019 12:48 PM CDT) Sodium 124 (L) 135 - 148 [facility] mEq/L [facility] Potassium 5.9 (H) 3.5 - 5.0 [facility] mEq/L [facility] Chloride 98 98 - 112 [facility] mEq/L [facility] CO2 16 (L) 24 - 31 mEq/L [facility] Anion gap 10@ANIO 7 - 15 mEq/L [facility] BUN 30 (H) 8 - 23 mg/dL [facility] Creatinine 1.53 (H) 0.70 - 1.20 [facility] mg/dL [facility] Glucose 103 (H) 65 - 99 mg/dL [facility] Calcium 9.1 8.8 - 10.2 [facility] mg/dL [facility] Protein 6.7 6.3 - 8.3 [facility] Comment: g/dL HOSPITAL - 4.6-7.0 g/dL 1 week 4.4-7.6 g/dL 7 months-1year 5.1-7.3 g/dL 1-2 years 5.6-7.5 g/dL >3 years 6.0-8.0 g/dL 18-150 6.3-8.3 g/dL Albumin 3.2 (L) 3.5 - 5.0 [facility] g/dL [facility] A/G ratio 0.9 0.7 - 3.8 [facility] Alkaline phosphatase 111 40 - 129 U/L [facility] AST 32 10 - 50 U/L [facility] ALT 30 5 - 50 U/L [facility] Total bilirubin 0.5 0.0 - 1.2 [facility] mg/dL [facility] Specimen Blood Performing Organization Address City/State/Zipcode Phone Number [facility] DEPARTMENT OF PATHOLOGY AND [address] [place] [phone] GENOMIC MEDICINE [address] [address] ECG 12 lead (08/28/2019 11:24 AM CDT) Pathologist Sig nature Ventricular rate 66 [facility] Atrial rate 66 [facility] ND interval 202 [facility] QRSD interval 96 [facility] QT interval 402 [facility] QTC interval 421 [facility] M[facility] P axis 1 40 [facility] QRS axis 1 -35 [facility] T wave axis -6 [facility] MUSE EKG impression Normal sinus rhythm-Left axi s deviation-Minimal voltage criteria for LVH, may be normal variant-Nonspecific ST abnormality-Abnormal ECG-In automated comparison with ECG of 30-SEP-2018 13:41,-QRS duratio [facility] MATT n has decreased-T wave inversion less evident in Inferior leads-Electronicall y Signed By Ester Loyd MD ([id number]) on 08/28/2019 2:41:06 PM Specimen Narrative Performed At This result has an attachment that is no t available. 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
[2019-11-25] MEDS ORDERED: NA CHLORIDE 0.9% 1,000 ML ONE (07:05)
[2019-11-25] MEDS ORDERED: propofoL 200 MG/20 ML VIAL IV ONE (07:18)
[2019-11-25] MEDS ORDERED: LIDOCAINE 1% MPF 5 ML VIAL ONE (07:18)
[2019-11-25] MEDS ORDERED: EPINEPHRINE/PF 1 MG/ML AMP ONE (07:53)
[2019-11-25 09:39] VITALS: TEMP 97.7; O2SAT 99
[2019-11-25 09:40] VITALS: BP 127/879
== END 2019-11-25 09:40 | disposition home or self-care (01) ==
LOC: OR 06:25
PROVIDERS: ATTEND Internal Medicine Gastroenterology
PROC: 0DB68ZX Excision of Stomach, Via Natural or Artificial Opening Endoscopic, Diagnostic (ICD-10-PCS; principal; 2019-11-25 07:30)
PROC: 0DB88ZX Excision of Small Intestine, Via Natural or Artificial Opening Endoscopic, Diagnostic (ICD-10-PCS; 2019-11-25 07:30)
DX: D50.9 Iron deficiency anemia, unspecified (principal); K44.9 Diaphragmatic hernia without obstruction or gangrene; K29.50 Unspecified chronic gastritis without bleeding; I50.9 Heart failure, unspecified; R06.00 Dyspnea, unspecified; R60.0 Localized edema; Z20.828 Contact with and (suspected) exposure to other viral communicable diseases
CPT/HCPCS: 36415; 88312; 84132; 82947; 88305; 43239; U0002; J2704; J0171; J7030

== ENCOUNTER 2019-11-29 12:36 | Inpatient (IN) | payer OTHER, MEDICARE ==
--- OUTSIDE RECORDS SUMMARY | 2019-11-29 12:39 | XMS REPORT | Clinical Summary ---
:1940 Author Organization [facility] Address [address] [place] [address] Care Team Providers Name Role Phone Sue [...] route. calcium Take 1 tablet 0 Active crb,yqu-[id number]-genis by mouth (CITRACAL + BONE daily. 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 (Primary Dx); MD Elina SOB (shortness of breath); Exposure to KATHERYN S-associated coronavirus 10/05/2019 Travel 09/25/2019 Telephone Gastroenterology Ashlyn Lawrence MA 09/03/2019 Surgery Procedural Cardiology Raegan Martinez coronary MD Elina angiography [93 [id number] (CPT)] 09/03/2019 Hospital Procedural Cardiology Raegan Martinez Chest pain, unspecified type; Encounter MD Elina SOB (shortness of breath); Abnormal stress test; CAD in iroquois a rtery 09/03/2019 Travel 09/02/2019 Travel 08/31/2019 [...] test; Pre-operative l aboratory examination; CAD in iroquois a rtery 08/27/2019 Travel 08/27/2019 Telephone Cardiology Kameron Bonner MA Chest Pain 03/31/2019 Office Visit Cardiology Raegan Martinez CAD in iroquois a rtery (Primary Dx); MD Elina History of james nary artery stent placement after 11/28/2018 Family History Medical History Relation Name Comments CABG/Stent Brother Heart attack Brother Relation Name Status Comments Brother Social History Tobacco Use Types Packs/Day Years Used Date Never Smoker Smokeless Tobacco: Never Used Alcohol Use Drinks/Week oz/Week Comments No Sex Assigned at Date Recorded Not on file Last Filed Vital Signs Vital Sign Reading [...] breath) section. Abnormal stress test CAD in iroquois artery POC PANEL Routine 09/03/2019 11:43 Results [...] PM CDT unspecified type procedure are in (37061) SOB (shortness of the result s breath) [...] of the result s breath) section. after 11/28/2018 Results POC glucose (09/03/2019 1:45 PM CDT)Only the most recent of2 resultswithin the time period is included. Pathologist [facility] [place] POC glucose 86 65 - 99 mg/dL [facility] Comment: HOSPITAL Computer Forensic Specialist Name: Lidia Xiao Device ID: [id number] Chartable: H Notified RN Specimen Blood Performing Organization Address City/[facility]/ZIP Code Phon e Number [facility] DEPARTMENT OF PATHOLOGY AND [address], [place] [address] [address] [facility] [address] [place] [address] component lab tech procedure (09/03/2019 1:18 PM CDT) Specimen Narrative Performed At This result has an attachment that is no t available. 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 Moderate diffuse [...] the patient during sedation. Performing Organization Address City/State/ZIP Code Phon e Number [facility] [address] [place] [address], Estimated GFR (09/03/2019 11:43 AM CDT)Only the most recent of3 resultswithin the time period is included. [facility] Estimated GFR 40 (A) mL/min/1.73 ZAY CATHOL[facility] Comment: HOSPITAL Catergory Units Interpretation G1 >=90 Normal [...] in 2014. Specimen Blood Performing Organization Address City/[facility] Phon e Number [facility] DEPARTMENT OF PATHOLOGY AND [address] [place] [phone] [address] POC panel (09/03/2019 11:43 AM CDT) POC sodium 127 (L) 135 - 148 [facility] mmol/L [facility] POC potassium 5.5 (H) 3.5 - 5.0 [facility] mmol/L [facility] POC chloride 96 (L) 99 - 109 [facility] mmol/L [facility] POC CO2 20 (L) 24 - 31 mmol/L [facility] POC glucose 82 65 - 99 mg/dL [facility] POC BUN 23 8 - 24 mg/dL [facility] POC creatinine 1.6 (H) 0.7 - 1.2 [facility] mg/dl [facility] POC hematocrit 26 (L) 41 - 51 % [facility] POC anion gap 17 8 - 20 mmol/L [facility] Comment: HOSPITAL Computer Forensic Specialist Name: Deyvi Ricardo Device ID: [id number] Specimen Performing Organization Address [facility] Phon e Number [facility] DEPARTMENT OF PATHOLOGY AND [address] [place], [place] [phone] [address] [address] Basic metabolic panel (09/03/2019 11:40 AM CDT) Pathologist Sig nature Sodium 126 (L) 135 - 148 mEq/L [facility] Potassium 5.6 (H) 3.5 - 5.0 mEq/L [facility] Chloride 94 (L) 98 - 112 mEq/L [facility] CO2 19 (L) 24 - 31 mEq/L [facility] Anion gap 13@ANIO 7 - 15 mEq/L [facility] BUN 23 8 - 23 mg/dL [facility] Creatinine 1.60 (H) 0.70 - 1.20 mg/dL [facility] Glucose 83 65 - 99 mg/dL [facility] Calcium 8.9 8.8 - 10.2 mg/dL [facility] Specimen Blood Performing Organization Address City/State/ZIP Code Phon e Number [facility] DEPARTMENT OF PATHOLOGY AND [address], [place] [address] [address] [facility] [address] [place] [address] Transthoracic Echocardiogram Complete, (w Contrast, Strain and 3D if needed) (08/28/2019 1:53 PM CDT) Specimen Narrative Performed At [facility] Echo cardiography Report Pat.Name: RAYMON DONATO Pat.ID: [id number] .Date: 08/28/2019 Refer.MD: RAEGAN MARTINEZ MD Exam Time: 1:17:00 PM Study Type:R outine Echo Height: 72in Weight: 247lb BSA: 2.33 m2 Ag e: 1940,79Y Sex: MALE BP: 171/78 HR: 66 bpm Sonogrphr: Jon Cohen, RDCS, RVS Pat. Stat.:Outpatient [facility] Tape Vol: MDCA, ICD - 9: R07.9, R06.02, R94.39 Study Status:Final Echo Event ID:[id number] Order ID: [id number] Reason for Study:Chest pain, unspecified type [R07.9 [...] MV TVI 44 cm 2D Parasternal [place] Ao An 1.8 cm LVPWd 1.1 cm [...] Results In - 2019 2:37 PM CDT [facility] Echocardiography Report Pat.Name: RAYMON DONATO Pat.I D: [id number] .Date: 08/28/2019 Refer .MD: RAEGAN MARTINEZ MD Exam Time: 1:17:00 PM Study Type:Routine Echo Height: 72in Weigh t: 247lb BSA: 2.33 m2 Age: 2 1940,79Y Sex: MALE BP: 171/78 HR: 66 bpm Sonogrphr: Jon Cohen, RDCS, RVS Pat. Stat.:Outpatient Room: [address] Vol: [facility], ICD - 9: R07.9, R06.02, R94.39 Study Status:Final Echo Event ID:[id number] Order ID: [id number] Reason for Study:Chest pain, unspecified type [R07.9 [...] MV T 44 cm 2D Parasternal [place] Ao An 1.8 cm LVPW d 1.1 [...] PM Bjorn Caal MD Performing Organization Address City/State/ZIP Code Phon e Number [facility] [address] [place] [address] Prothrombin time with INR (08/28/2019 12:48 PM CDT) [facility] Signature Prothrombin time 15.1 (H) 11.5 - 14.5 [facility] INR 1.2 [place] Comment: [facility] International Normalized Ratio (INR) is a therapeu [facility] HOSPITAL monitoring tool for patients who are stable on oral anticoagulant therapy. An INR of 2.0-3.0 is suggested for deep vein thrombosis/pulmonary embolism. Specimen Blood Performing Organization Address City/[facility] Phon e Number [facility] DEPARTMENT OF PATHOLOGY AND [address] [place] [address] [phone] [address] CBC with platelet and differential (08/28/2019 12:48 PM CDT) WBC 6.83 4.50 - 11.00 [facility] k/uL HOSPITAL RBC 2.83 (L) 4.40 - 6.00 [facility] m/uL [facility] HGB 8.4 (L) 14.0 - 18.0 [facility] g/dL [facility] HCT 25.8 (L) 41.0 - 51.0 % [facility] MCV 91.2 82.0 - 100.[address] [facility] MCH 29.7 27.0 - 34.[address] [facility] MCHC 32.6 31.0 - 37.0 [facility] g/dL [facility] RDW - SD 49.1 37.0 - 55.0 [facility] MPV 9.0 8.8 - 13.2 [facility] Platelet count 258 150 - 400 k/uL [facility] Nucleated RBC 0.00 /[address] [facility] Neutrophils 77.0 (H) 39.0 - 69.0 % [facility] Lymphocytes 7.9 (L) 25.0 - 45.0 % [facility] Monocytes 12.9 (H) 0.0 - 10.0 % [facility] Eosinophils 1.5 0.0 - 5.0 % [facility] Basophils 0.3 0.0 - 1.0 % [facility] Immature granulocytes 0.4Comment: 0.0 - 1.0 % [facility] "Immature HOSPITAL granulocytes" (promyelocytes , myelocytes, metamyelocytes ) Specimen Blood Performing Organization Address City/[facility] Phon e Number [facility] DEPARTMENT OF PATHOLOGY AND [address] [place] [address] [phone] [address] Comprehensive metabolic panel (08/28/2019 12:48 PM CDT) Sodium 124 (L) 135 - 148 [facility] mEq/L [facility] Potassium 5.9 (H) 3.5 - 5.0 [facility] mEq/L [facility] Chloride 98 98 - 112 [facility] mEq/L [facility] CO2 16 (L) 24 - 31 mEq/L [facility] Anion gap 10@ANIO 7 - 15 mEq/L [facility] BUN 30 (H) 8 - 23 mg/dL [facility] Creatinine 1.53 (H) 0.70 - 1.20 [facility] mg/dL [facility] Glucose 103 (H) 65 - 99 mg/dL [facility] Calcium 9.1 8.8 - 10.2 [facility] mg/dL [facility] Protein 6.7 6.3 - 8.3 [facility] Comment: g/dL HOSPITAL - 4.6-7.0 g/dL 1 week 4.4-7.6 g/dL 7 months-1year 5.1-7.3 g/dL 1-2 years 5.6-7.5 g/dL >3 years 6.0-8.0 g/dL 18-150 6.3-8.3 g/dL Albumin 3.2 (L) 3.5 - 5.0 [facility] g/dL [facility] A/G ratio 0.9 0.7 - 3.[address] [facility] Alkaline phosphatase 111 40 - 129 U/L [facility] AST 32 10 - 50 U/L [facility] ALT 30 5 - 50 U/L [facility] Total bilirubin 0.5 0.0 - 1.2 [facility] mg/dL [facility] Specimen Blood Performing Organization Address City/State/ZIP Code Phon e Number [facility] DEPARTMENT OF PATHOLOGY AND [address] [place] [phone] GENOMIC MEDICINE [address] [address] ECG 12 lead (08/28/2019 11:24 AM CDT) Pathologist Sig nature Ventricular rate 66 [facility] Atrial rate 66 [facility] OK interval 202 [facility] QRSD interval 96 [facility] QT interval 402 [facility] QTC interval 421 [facility] P axis 1 40 [facility] QRS axis 1 -35 [facility] T wave axis -6 [facility] EKG impression Normal sinus rhythm-Left axi s deviation-Minimal voltage criteria for LVH, may be normal variant-Nonspecific ST abnormality-Abnormal ECG-In automated comparison with ECG of 30-SEP-2018 13:41,-QRS duratio [facility] MUSE n has decreased-T wave inversion less evident in Inferior leads-Electronicall y Signed By Ester Loyd MD ([id number]) on 08/28/2019 2:41:06 PM Specimen Narrative Performed At This result has an attachment that is no t available. Performing Organization Address City/State/ZIP Code Phon e Number [facility] MUSE [address] [place] [address] after 11/28/2018 Insurance Payer Benefit Plan / Subscriber ID Effective Dates Phone Addre ss Type Group MEDICARE MEDICARE PART A [id number] 2003-Present [facility] [place] AND B AARP AARP SUPPLEMENT [id number] 2017-Present Commercial Advance Directives For more information, please contact: [phone] Type Date Recorded Patient Community Relations Advisor Explanati on Advance Directives, Living Will and Medical Power of Slider Assembler
--- OUTSIDE RECORDS SUMMARY | 2019-11-29 12:40 | XMS REPORT | Continuity of Care Document ---
:1940 Author Organization [facility] t Address [facility] [place] [address] Care Team Providers Name Role Phone Sue Hicks DO Primary Care Physician Juan REDD R. Attending Clinician Melinda MALAVE S Attending Clinician Unavailable Kailey MALAVE Attending Clinician Unavailable Octavio REDD, T Attending Clinician JUAN Admitting Clinician Unavailable Payers Payer Name Policy Type Policy Effective Date Expiration Date Sour ce Number MEDICAREMEDICARE PART [id number] Kareem Bueno AND 00:00:00 [place] [id number] 2003[place], [place] [id number] 2017 [place] [id number] 00:00:00 Met juanpablo 2017-[place] rcial Problems Condition Condition Condition Status Onset Resolution Last Treating Co mments Source Name Details Category Date Date Treatment Clinician Date Abnormal Abnormal Disease Active [place] stress stress -19 [facility] test test 00:00: st 00 History of History of Disease Active H [place] coronary coronary 1- Method i artery artery 00:00: st stent stent 00 placement placement Chest pain Chest pain Disease Active [place] 09-30 [facility] 00:00: st 00 SOB SOB Disease Active [place] (shortness (shortness 7-23 Me thodi of breath) of breath) 00:00: st 00 Coronary Coronary Disease Active [place] artery artery 07-10 [facility] disease disease 00:00: st involving involving 00 [place] coronary coronary artery of artery of [place] heart heart without without angina angina pectoris [...] Date Stop Date Source Natural brother CABG/Stent [facility] ramu Natural brother Heart attack [facility] Social History Social Habit Start Date Stop Date Quantity Comments Source Sex Assigned At [facility] Tobacco use and 2019-10-06 2019-10-06 [facility] 00:00:00 00:00:00 Alcohol intake 2019-10-06 2019-10-06 [facility] 00:00:00 00:00:00 non-drinker of alcohol (finding) Smoking Status Start Date Stop Date Source Never smoker [facility] Medications Ordered Filled Start Stop Current Ordering Indication Dosage Frequency Signature Comments Components Source Medication Medication Date Date Medication? Clinician (SIG) Name Name eric 2020-0 Yes 1875mg Take 1,875 [facility] (WELCHOL) 7-28 mg by [facility] 625 mg 13:08: mouth st tablet 05 daily. aspirin 2020-0 Yes aspirin 81 [place] (ECOTRIN) 7-28 mg [facility] 81 MG 13:08: tablet,del st enteric 05 ayed coated release tablet Take 1 tablet every day by oral route. calcium 2020-0 Yes 1{tbl} QD Take 1 [place] crb,cit-D3- 7- tablet by Met zhang [id number] 13:08: mouth st (CITRACAL + 05 daily. BONE DENSITY) 300-200-13. 5 mg-unit-mg tablet BIOTIN ORAL 2020-0 Yes [id number] QD Take Yves ston 7-28 10,000 mcg Methodi 13:08: by mouth st 05 daily. BUMETanide 2020-0 Yes 1mg Q.5D Take 1 mg [place] (BUMEX) 1 - by mouth 2 Meth jesica MG tablet 13:08: (two) st 05 times a day. potassium 2019-0 Yes 10meq Q.5D Take 10 [place] chloride 7-28 mEq by Method[facility] (MICRO-K) 13:08: mouth 2 st 10 MEQ CR 05 (two) capsule times a day. cycloSPORIN 2019-0 Yes 1[drp] QD Administer Franks E 10-05 1 drop to Methodi (RESTASIS) 13:08: both eyes st 0.05 % 05 daily. ophthalmic emulsion INSULIN 2019-0 Yes Inject Franks SUBCUTANEOU 10-05 under the Met hodi S PUMP, 13:08: skin st HUMALOG, 05 continuous 100 ly. UNITS/ML INSULIN PUMP INFUSION (HumaLOG) cyanocobala 2019- No 1mL 1 mL. [place] min 1,000 09-02 [facility] mcg/mL 11:11: 00:00 st injection 39 :00 amLODIPine Yes 10mg Q.5D Take 1 [place] (NORVASC) 08-30 tablet (10 Meth jesica 10 mg 00:00: mg total) st tablet 00 by mouth 2 (two) times a day. gabapentin Yes 1200mg Q.5D Take 1,200 [facility] (NEURONTIN) 1-10 mg by Methodi 300 mg 00:00: mouth 2 st capsule 00 (two) times a day. omeprazole Yes [facility]anks (PriLOSEC) 5- Method[facility] 20 MG 00:00: st capsule 00 VASCEPA 1 Yes 1g QD Take 1 g [place] gram 07-07 by mouth [facility] capsule 00:00: daily. st 00 spironolact Yes 50mg Q.5D 50 mg 2 [place] one 07-07 (two) [facility] (ALDACTONE) 00:00: times a st 25 MG 00 day. tablet hydroCHLORO 2019- No 25mg Q.5D 25 mg 2 [place] thiazide 07-07- (two) Method[facility] (HYDRODIURI 00:00: 00:[address] L) 25 MG 00 :00 day. tablet amLODIPine 2019- No QD daily. [place] (NORVASC) 4-06 14- [facility] 10 mg 00:00: 00:00 st tablet 00 :00 SYNTHROID Yes 100ug QD Take 100 Vyes ston 100 mcg 3-01 mcg by [facility] tablet 00:00: mouth st 00 daily. telmisartan 2019- No [place] (MICARDIS) 05-09 Method[facility] 80 [...] Source Systolic blood 2019-10-06 13:07:00 139 mm[Hg] Dari n Alevism pressure Diastolic blood 2019-10-06 13:07:00 65 mm[Hg] [place] Alevism pressure Heart rate 2019-10-06 13:07:00 65 /min Goldne eDleon Body height 2019-10-06 13:07:00 182.9 cm Golden Deleon Body weight 2019-10-06 13:07:00 109.317 kg Golden Deleon BMI 2019-10-06 13:07:00 32.69 kg/m2 Golden Deleon Respiratory rate 2019-09-03 15:00:00 14 /min Leo Deleon Oxygen saturation in 2019-09-03 15:00:00 99 /min Golden Deleon Arterial blood by Pulse oximetry Body temperature 2019-09-03 13:40:00 36.11 Roslyn Leo Deleon Procedures Procedure Date / Time Performed Performing Clinician Sourc e POC GLUCOSE 2019-09-03 13:45:00 Raegan Gimenez Meth odist CV SELECTIVE CORONARY 2019-09-03 13:18:58 Raegan Gimenez Alevism ANGIOGRAPHY ESTIMATED GFR 2019-09-03 11:43:00 Raegan Gimenez Meth odist POC PANEL 2019-09-03 11:43:00 Raegan Gimenez Meth odist BASIC METABOLIC PANEL 2019-09-03 11:40:00 Raegan Gimenez Alevism ESTIMATED GFR 2019-09-03 11:40:00 Raegan Gimenez Meth odist POC GLUCOSE 2019-09-03 10:44:00 Raegan Gimenez Meth odist TTE COMPLETE, WO 2019-08-28 13:53:00 Raegan Gimenez W DOPPLER ([id number]) COMPREHENSIVE METABOLIC 2019-08-28 12:48:00 Raegan Gimenez Alevism PANEL HC COMPLETE BLD COUNT 2019-08-28 12:48:00 Raegan Gimenez n Alevism W/AUTO DIFF PROTHROMBIN TIME WITH INR 2019-08-28 12:48:00 Raegan Gimenez [place] Alevism ESTIMATED GFR 2019-08-28 12:48:00 Raegan Gimenez Meth odist ECG 12-LEAD 2019-08-28 11:24:35 Raegan Gimenez odfreddy Plan of Care Planned Activity Planned Date Details Comments Source Future Scheduled 2019-11-10 INFLUENZA VACCINE [place] [facility] Test 00:00:00 [code = INFLUENZA VACCINE] Future Scheduled 2003 65+ PNEUMOCOCCAL [place] [facility] Test 00:00:00 VACCINE (1 of 2 - PCV13) [code = 65+ PNEUMOCOCCAL VACCINE (1 of 2 - PCV13)] Future Scheduled 1988 SHINGLES VACCINES (#1) [place] [facility] Test 00:00:00 [code = SHINGLES VACCINES (#1)] Future Scheduled 1948 DIABETIC FOOT EXAM [place] [facility] Test 00:00:00 [code = DIABETIC FOOT EXAM] Future Scheduled 1948 URINE MICROALBUMIN [place] [facility]ism Test 00:00:00 [code = URINE MICROALBUMIN] Future Scheduled 1940 DIABETIC RETINAL EYE [facility] [facility] Alevism Test 00:00:00 EXAM [code = DIABETIC RETINAL EYE EXAM] Encounters Start End Encounter Admission Attending Care Care Encounter Source Date/Time Date/Time Type Type Clinicians Facility Department ID 2019-10-06 2019-10-06 [facility] [id number] [place] 00:00:00 00:00:00 RAEGAN [address] 2019-09-03 2019-09-03 Outpatient [facility] [id number] [place] 00:00:00 00:00:00 RAEGAN [address] 2019-08-28 2019-08-28 [facility] [id number] [place] 00:00:00 00:00:00 RAEGAN 983 Method i 2019-08-28 2019-08-28 Outpatient [facility] [id number] [place] 00:00:00 00:00:00 RAEGAN 729 Method i 2019-08-28 2019-08-28 Outpatient JUAN [facility] [id number] [place] 00:00:00 00:00:00 RAEGAN 440 Method i 2019-06-03 2019-07-[address] [facility] [id number] 08:33:49 08:57:17 ne Visit Ankitkendra Jes Shreyas [id number] Ash [id number] Amanda [id number] nal 085 Building Results Test Description Test Time Test Comments Results Result [facility] e Comments denture laboratory technician 2019-08-11 Procedure details [place] procedure 5 After obtaining Alevism 19:52:46 informed consent, the patient was brought [...] diffuse diseaseLCx: mild diffuse disease; om2 with UPPERS EDGE BURNISHER segmentRCA: anomalous take off. Moderate diffuse atherosclerosis [...] mg/dL 65-99 Ope rator Name: Lidia Cortez [id number]) ID: [id number] hartable: TM Notified RN Golden [facility] metabolic [id number] 12:26:54 Test Item Value Reference Range Interpretation Comments Sodium (test code = 2951-2) 126 135- 148 mEq/L L Potassium (test code = 2823-3) 5.6 3.5- 5.0 mEq/L H Chloride (test code = 2075-0) 94 98- 112 mEq/L L CO2 (test code = 8-9) 19 24- 31 mEq/L L Anion gap (test code = 48789-6) 13@ANIO 7- 15 mEq/L BUN (test code = 3094-0) 23 mg/dL 8-23 Creatinine (test code = 2160-0) 1.60 mg/dL 0.7-1.2 H Glucose (test code = 2345-7) 83 mg/dL 65-99 Calcium (test code = 44507-8) 8.9 mg/dL 8.8-10.2 Lab Interpretation (test code = Abnormal 63809-5) [facility] [id number] 11:47:23 Test Item Value Reference Range Interpretation Comments POC sodium (test code = 127 mmol/L 135-148 L 2947-0) POC potassium (test 5.5 mmol/L 3.5-5 H code = 6298-4) POC chloride (test code 96 mmol/L 99-109 L = 2069-3) POC CO2 (test code = 20 mmol/L 24-31 L 03148-1) POC glucose (test code 82 mg/dL 65-99 = 2339-0) POC BUN (test code = 23 mg/dL 8-24 6299-2) POC creatinine (test 1.6 mg/dl 0.7-1.2 H code = 93932-1) POC hematocrit (test 26 % 41-51 L code = 4544-3) POC anion gap (test 17 mmol/L 8-20 Family Practitioner Name: code = [id number]) Deyvi Fuentes ID: [id number] Lab Interpretation Abnormal (test code = 95601-4) Golden MethodistEstimated [id number] 11:47:23 Test Item Value Reference Range Interpretation Comments Estimated GFR (test 40 mL/min/1.73 m2 Myles albright Units code = 11032-5) Interpretati onG1 >=90 Adela l or highG2 60-89 Mildly decrease dG3a 45-59 Mil dly to moderately decr uzojmB2m 30-44 Moderately to s everely decreasedG4 15-29 Severe ly decreasedG5 <15 Kidney jemma lureThe eGFR was calcul ated using the Chron ic Kidney Disease Epidemiology Collaboration ( CKD-EPI) equation. Interpretation is based on recommendati ons of the [facility] [place] Disease Outcome s Quality Initiat misa (NKF-KDOQI) pub lished in 2013. Lab Interpretation Abnormal (test code = 10029-4) Golden Matson 12 [id number] 14:41:07 Test Item Value Reference Range Interpretation Comments Ventricular rate (test 66 code = 253) Atrial rate (test code 66 = 255) NE interval (test code 202 = 266) QRSD [...] wave inversion less evident in Inferior leads- Golden DeleonComprehensive metabolic [id number] 13:49:53 Test Item Value Reference Range Interpretation Comments Sodium (test code = 124 135- 148 mEq/L L 2951-2) Potassium (test code = 5.9 3.5- 5.0 mEq/L H 2823-3) Chloride (test code = 98 98- 112 mEq/L 5-0) CO2 (test code = 2027-9) 16 24- 31 mEq/L L Anion gap (test code = 10@ANIO 7- 15 mEq/L 88929-4) BUN (test code = 3094-0) 30 mg/dL 8-23 H Creatinine (test code = 1.53 mg/dL 0.7-1.2 H 2160-0) Glucose (test code = 103 mg/dL 65-99 H 2345-7) Calcium (test code = 9.1 mg/dL 8.8-10.2 98584-9) Protein (test code = 6.7 g/dL 6.3-8.3 -[place] n 2885-2) 4.6-7.0 g/dL1 week 4.4-7 .6 g/dL7 months-1y ear 5.1-7 .3 g/dL1-2 years 5.6-7 .5 g/dL>3 years 6.0-8 .0 g/pQ66-130 6.3-8 .3 g/dL Albumin (test code = 3.2 g/dL 3.5-5 L 1751-7) A/G ratio (test code = 0.9 0.7-3.8 1759-0) Alkaline phosphatase 111 U/L 40-129 (test code = 6768-6) AST (test code = 1920-8) 32 U/L 10-50 ALT (test code = 1742-6) 30 U/L 5-50 Total bilirubin (test 0.5 mg/dL 0-1.2 code = 1974-2) Lab Interpretation (test Abnormal code = 07718-9) Golden MethodistProthrombin time with [id number] 13:28:44 Test Item Value Reference Range Interpretation Comments Prothrombin time (test 15.1 11.5- 14.5 sec H code = 5902-2) INR (test code = 1.2 [facility] 17154-7) Normalized Rati o (INR) is a therapeuti c monitoring tool for patients who ar e stable on oral anticoagulant t herapy. An INR of 2.0-3 .0 is suggested for d eep vein thrombosis/pulm onary embolism. Lab Interpretation Abnormal (test code = 51522-7) [facility] MethodistCBC with platelet and [id number] 13:15:52 Test Item Value Reference Range Interpretation Comments WBC (test code = 98279-2) 6.83 4.50- 11.00 k/uL RBC (test code = 06644-8) 2.83 m/uL 4.4-6 L HGB (test code = 718-7) 8.4 g/dL 14-18 L HCT (test code = 4544-3) 25.8 % 41-51 L MCV (test code = 787-2) 91.2 fL 82-100 MCH (test code = 785-6) 29.7 pg 27-34 MCHC (test code = 786-4) 32.6 g/dL 31-37 RDW - SD (test code = 49.1 fL 37-55 23997-1) MPV (test code = 59803-3) 9.0 fL 8.8-13.2 Platelet count (test code 258 150- 400 k/uL = 99603-6) Nucleated RBC (test code 0.00 /100 WBC = 01113-3) Neutrophils (test code = 77.0 % 39-69 H 60570-2) Lymphocytes (test code = 7.9 % 25-45 L 83556-2) Monocytes (test code = 12.9 % 0-10 H 59162-5) Eosinophils (test code = 1.5 % 0-5 01119-7) Basophils (test code = 0.3 % 0-1 53468-7) Immature granulocytes 0.4 % 0-1 "Immat ure (test code = 46485-4) granul ocytes" (promyelocytes, myelocytes, metamyelocytes) Lab Interpretation (test Abnormal code = 02030-1) Golden Deleon
[2019-11-29 13:36] LABS: Absolute Lymphocytes (CBC) 0.7 K/uL (0.7-4.9); Basophils % 0.2 % (0-1.3); Hematocrit 27.6 % (39.6-49.0); Lymphocytes % 8.6 % (15.3-44.8); MPV 8.5 fL (7.6-11.3)
[2019-11-29 13:44] LABS: Bilirubin Direct 0.3 mg/dL (0-0.2); Bilirubin Total 0.7 mg/dL (0.2-1.0); Potassium 3.3 mmol/L (3.5-5.1); Protein, Total 6.3 g/dL (6.4-8.2)
--- NOTE | 2019-11-29 14:34 | RAD REPORT ---
EXAM DESCRIPTION: CT - Abdomen Pelvis W Contrast - 11/29/2019 2:20 pm CLINICAL HISTORY: GI bleeding, recent colonoscopy COMPARISON: No comparisons TECHNIQUE: Biphasic, helical CT imaging of the abdomen and pelvis was performed following 100 ml non -ionic IV contrast. No oral contrast given. All CT scans are performed using dose optimization technique as appropriate and may include automated exposure control or mA/KV adjustment according to patient size. FINDINGS: Small bilateral pleural effusions are present right greater than left. Cardiomegaly is pre sent without pericardial effusion. Prominent nodular capsule contour to the liver. Left lobe is prominent. No focal liver lesion. No por victoriano vein thrombosis. No splenomegaly or focal splenic finding. No pancreatic abnormality seen. Large calcified stones are present in the gallbladder. No acute gallbladder or biliary tree process seen. Symmetric renal function is seen with no hydronephrosis or suspicious renal mass. No pyelonephritis o r acute parenchymal process. No bladder abnormalities. No adrenal abnormalities. Stool distends the rectum to 8 cm. No rectal wall thickening or mass identified. Patient has a promin ent diverticulosis pattern without diverticulitis confirmed. Sigmoid colon is redundant extending to the anterior upper left abdomen. Overall no colon wall thickening or mass identified. There is modera tely large stool volume filling but not dilating right-side of the colon and transverse colon. The ap pendix is normal. No free air or pneumatosis. Trace amount of stranding is present in the fatty tissues. Minimal free fluid is present adjacent to the liver and spleen. No mass or bulky lymphadenopathy. Small fat fill ed inguinal hernias are present. Penile reservoir pump is present in the left lower pelvis. Disc and bone degenerative changes are present. No acute process seen. IMPRESSION: Rectum is distended by stool to 8 cm. No rectal wall thickening or mass. Prominent diverticulosis of the left side colon with moderately large stool volume in the transverse and right-side colon. Minimal stranding is seen in the fatty tissues. A minimal diverticulitis is po ssible. No free air or surgically emergent finding. Patient has small bilateral pleural effusions and a trace amount of ascites. Cholelithiasis is present. Cirrhotic liver changes are present with no focal liver lesion.
[2019-11-29] MEDS ORDERED: NA CHLORIDE 0.9% 500 ML ONE (14:46)
--- NOTE | 2019-11-29 15:15 | EDPHYS ---
Physician Documentation [facility] Name: Raymon Donato Jr Age: 79 yrs Sex: Male : 1940 Arrival Date: 11/29/2019 Time: 12:40 Bed 13 Private MD: iPto Hicks ED Physician Devon Major HPI: 11/28 13:05 This 79 yrs old Male presents to ER via Ambulatory with complaints of Rectal jmm Bleeding. 13:05 The patient presents to the emergency department with bleeding from the rectum/anus, jmm that is moderate. Onset: The symptoms/episode began/occurred acutely, this morning. Modifying factors: The symptoms are alleviated by nothing, The symptoms are aggravated by nothing. Associate signs and symptoms: Pertinent positives: lower GI bleeding. This is an 79 year old male with a history of hypothyroidism, thn , DM that presents to the ED with complaints of 2 episodes of bright red bleeding beginning this morning. Patient is 4 days s/p colonoscopy. . Historical: - Allergies: 12:55 No Known Allergies; aj1 - Home Meds: 12:55 amlodipine 10 mg tab 1 tab once daily [Active]; bumetanide 1 mg Oral tab 1 tab 3 times aj1 per day [Active]; potassium chloride 10 mEq Oral cpER 1 cap 3 times per day [Active]; colesvelam 625 mg daily [Active]; aspirin 81 mg Oral chew 1 tab once daily [Active]; Vitamin B-12 Oral [Active]; Iron CR 28 mg Oral daily [Active]; gabapentin 300 mg oral cap 1 cap twice a day [Active]; Humalog 100 unit/mL Sub-Q crtg [Active]; omeprazole 20 mg Oral cpDR 1 cap once daily [Active]; Restasis ophthalmic ophthalmic [Active]; Synthroid 100 mcg Oral tab 1 tab once daily [Active]; Vascepa 1 gram oral cap 4 caps daily [Active]; - PMHx: 12:55 cardiac stents; Hypothyroidism; Hypertension; Diabetes - NIDDM; insulin pump; aj1 - PSHx: 12:55 Tonsillectomy; Adenoids; Knee surgery; partial thyroid removal; aj1 - Immunization history:: Flu vaccine is not up to date. - Social history:: Smoking status: Patient/guardian denies using tobacco. ROS: 13:05 Constitutional: Negative for fever, chills, and weight loss, Cardiovascular: Negative jmm for chest pain, palpitations, and edema, Respiratory: Negative for shortness of breath, cough, wheezing, and pleuritic chest pain. 13:05 Abdomen/GI: Positive for rectal bleeding. 13:05 All other systems are negative. Exam: 13:05 Constitutional: This is a well developed, well nourished patient who is awake, alert, jmm and in no acute distress. Head/Face: atraumatic. Eyes: EOMI, no conjunctival erythema appreciated ENT: Moist Mucus Membranes Neck: Trachea midline, Supple Chest/axilla: Normal chest wall appearance and motion. Cardiovascular: Regular rate and rhythm. No edema appreciated Respiratory: Normal respirations, no respiratory distress appreciated 13:05 Back: Normal ROM Skin: General appearance color normal MS/ Extremity: Moves all extremities, no obvious deformities appreciated, no edema noted to the lower extremities Neuro: Awake and alert, normal gait Psych: Behavior is normal, Mood is normal, Patient is cooperative and pleasant 13:05 Abdomen/GI: Inspection: abdomen appears normal, Bowel sounds: normal, Palpation: abdomen is soft and non-tender, in all quadrants, Rectal exam: bj blood. Vital Signs: 12:46 BP 118 / 71; Pulse 70; Resp 18; Temp 97.5(TE); Pulse Ox 98% on R/A; Weight 104.33 kg aj1 (R); Height 6 ft. 0 in. (182.88 cm) (R); Pain 0/10; 13:51 BP 125 / 54; Pulse 65; Resp 16 S; Pulse Ox 96% on R/A; ca1 14:06 BP 127 / 66 LA Supine (auto/reg); Pulse 64; Resp 18; Pulse Ox 97% on R/A; dh4 14:06 BP 113 / 62 LA Sitting (auto/reg); Pulse 68; Resp 18; Pulse Ox 100% on R/A; dh4 14:06 BP 93 / 57 LA Standing (auto/reg); Pulse 72; Resp 18; Pulse Ox 100% on R/A; dh4 14:55 BP 126 / 64; Pulse 68; Resp 15 S; Pulse Ox 99% on R/A; ca1 15:51 BP 127 / 7; Pulse 67; Resp 15 S; Pulse Ox 100% on R/A; ca1 16:41 BP 121 / 70; Pulse 67; Resp 15 S; Pulse Ox 99% on R/A; ca1 12:46 Body Mass Index 31.19 (104.33 kg, 182.88 cm) aj1 MDM: 13:06 Patient medically screened. renee 15:08 Data reviewed: vital signs, nurses notes. Counseling: I had a detailed discussion with susana the patient and/or guardian regarding: the historical points, exam findings, and any diagnostic results supporting the discharge/admit diagnosis, lab results, radiology results, the need for further work-up and treatment in the hospital. ED course: I discussed the patient with Dr. Bradford whom will consult on admission. I also discussed the patient with Dr. Mascorro whom accepted admission. . 11/28 13:05 Order name: Basic Metabolic Panel; Complete Time: 13:47 [facility] 11/28 13:05 Order name: CBC with Diff; Complete Time: 13:47 [facility] 11/28 13:05 Order name: Hepatic Function; Complete Time: 13:47 [facility] 11/28 13:05 Order name: Lipase; Complete Time: 13:47 [facility] 11/28 13:05 Order name: Type And Screen [facility] 11/28 13:59 Order name: Stool Culture [facility] 11/28 13:05 Order name: IV Saline Lock; Complete Time: 13:23 [facility] 11/28 13:05 Order name: Labs collected and sent; Complete Time: 13:23 [facility] 11/28 13:05 Order name: Orthostatic Blood Pressure; Complete Time: 14:16 [facility] 11/28 13:21 Order name: CT Abd/Pelvis - IV Contrast Only; Complete Time: 14:38 [facility] 11/28 13:59 Order name: Occult Blood [facility] 11/28 13:59 Order name: Fecal Leukocyte Stain [facility] 11/28 16:16 Order name: CONS Physician Consult EDMS Administered Medications: 14:37 Drug: NS 0.9% 500 ml Route: IV; Rate: bolus; Site: right antecubital; ca1 15:51 Follow up: Response: No adverse reaction; IV Status: Completed infusion; IV Intake: ca1 500ml Disposition: 11/29 06:07 Co-signature as Attending Physician, Devon Major MD I agree with the assessment and [facility] plan of care. Disposition: 11/29/19 15:14 Hospitalization ordered by Heath Mascorro for Observation. Preliminary diagnosis are Gastrointestinal hemorrhage, unspecified, Hypotension. - Bed requested for Telemetry/MedSurg (observation). - Status is Observation. iw - Condition is Stable. - Problem is new. - Symptoms have improved. Signatures: Dispatcher [employer] EDCassy Diamond, RN RN aj1 Devon Major MD MD cha Mickail, Joel, PA PA Lisa Bateman, NELA RONDON iw Paula Enamorado eb Sumi Perkins RN RN ca1 Corrections: (The following items were deleted from the chart) 11/28 16:22 15:14 Hospitalization Ordered by Heath Mascorro MD for Observation. Preliminary eb diagnosis is Gastrointestinal hemorrhage, unspecified; Hypotension. Bed requested for Telemetry/MedSurg (observation). Status is Observation. Condition is Stable. Problem is new. Symptoms have improved. [facility] 17:17 16:22 11/29/2019 15:14 Hospitalization Ordered by Heath Mascorro MD for Observation. iw Preliminary diagnosis is Gastrointestinal hemorrhage, unspecified; Hypotension. Bed requested for Telemetry/MedSurg (observation). Status is Observation. Condition is Stable. Problem is new. Symptoms have improved. eb
--- NOTE | 2019-11-29 15:15 | ER ---
Nurse's Notes [facility] Name: Raymon Donato Jr Age: 79 yrs Sex: Male : 1940 Arrival Date: 11/29/2019 Time: 12:40 Bed 13 Private MD: Pito Hicks Diagnosis: Gastrointestinal hemorrhage, unspecified;Hypotension Presentation: 11/28 12:46 Chief complaint: Patient states: "I woke up in the night and I thought I had crapped in aj1 the bed, but was blood, then I went to the bathroom and it was all blood in the toilet. I went back to bed and then when I got up at 9:30 it happened again. Denies pain. Patient reports that he had a colonoscopy on November 24. Patient reports that he takes aspirin daily but does not take any other blood thinners. Coronavirus screen: Client denies travel out of the [place] in the last 14 days. At this time, the client does not indicate any symptoms associated with coronavirus-19. Ebola Screen: Patient denies travel to an Ebola-affected area in the 21 days before illness onset. Initial Sepsis Screen: Does the patient meet any 2 criteria? No. Patient's initial sepsis screen is negative. Does the patient have a suspected source of infection? No. Patient's initial sepsis screen is negative. Risk Assessment: Do you want to hurt yourself or someone else? Patient reports no desire to harm self or others. Onset of symptoms was November 29, 2019. 12:46 Method Of Arrival: Ambulatory aj1 12:46 Acuity: AMBER 3 aj1 Triage Assessment: 12:55 General: Appears in no apparent distress. comfortable, Behavior is calm, cooperative, aj1 appropriate for age. Pain: Denies pain. Neuro: Level of Consciousness is awake, alert, obeys commands, Oriented to person, place, time, situation. Cardiovascular: Patient's skin is warm and dry. Respiratory: Airway is patent Respiratory effort is even, unlabored, Respiratory pattern is regular, symmetrical. GI: Reports bloody stool, Patient currently denies abdominal pain. Historical: - Allergies: 12:55 No Known Allergies; aj1 - Home Meds: 12:55 amlodipine 10 mg tab 1 tab once daily [Active]; bumetanide 1 mg Oral tab 1 tab 3 times aj1 per day [Active]; potassium chloride 10 mEq Oral cpER 1 cap 3 times per day [Active]; colesvelam 625 mg daily [Active]; aspirin 81 mg Oral chew 1 tab once daily [Active]; Vitamin B-12 Oral [Active]; Iron CR 28 mg Oral daily [Active]; gabapentin 300 mg oral cap 1 cap twice a day [Active]; Humalog 100 unit/mL Sub-Q crtg [Active]; omeprazole 20 mg Oral cpDR 1 cap once daily [Active]; Restasis ophthalmic ophthalmic [Active]; Synthroid 100 mcg Oral tab 1 tab once daily [Active]; Vascepa 1 gram oral cap 4 caps daily [Active]; - PMHx: 12:55 cardiac stents; Hypothyroidism; Hypertension; Diabetes - NIDDM; insulin pump; aj1 - PSHx: 12:55 Tonsillectomy; Adenoids; Knee surgery; partial thyroid removal; aj1 - Immunization history:: Flu vaccine is not up to date. - Social history:: Smoking status: Patient/guardian denies using tobacco. Screenin:05 Abuse screen: Denies threats or abuse. Denies injuries from another. Nutritional ca1 screening: No deficits noted. Tuberculosis screening: No symptoms or risk factors identified. Fall Risk IV access (20 points). Assessment: 13:05 General: Appears in no apparent distress. comfortable, Behavior is calm, cooperative, ca1 appropriate for age. Pain: Denies pain. Neuro: Level of Consciousness is awake, alert, obeys commands, Oriented to person, place, time, situation. Cardiovascular: Heart tones S1 S2 present Capillary refill < 3 seconds Patient's skin is warm and dry. Respiratory: Airway is patent Respiratory effort is even, unlabored, Respiratory pattern is regular, symmetrical, Breath sounds are clear bilaterally. GI: Abdomen is round non-distended, Bowel sounds present X 4 quads. Abd is soft and non tender X 4 quads. Reports rectal bleeding, since last night. : No deficits noted. EENT: No deficits noted. Derm: Skin is intact, is healthy with good turgor, Skin is pink, warm \\T\\ dry. Musculoskeletal: Circulation, motion, and sensation intact. Capillary refill < 3 seconds. 13:51 Reassessment: Patient appears in no apparent distress at this time. Patient and/or ca1 family updated on plan of care and expected duration. Pain level reassessed. Patient is alert, oriented x 3, equal unlabored respirations, skin warm/dry/pink. 14:55 Reassessment: Patient appears in no apparent distress at this time. Patient and/or ca1 family updated on plan of care and expected duration. Pain level reassessed. Patient is alert, oriented x 3, equal unlabored respirations, skin warm/dry/pink. 15:51 Reassessment: Patient appears in no apparent distress at this time. Patient and/or ca1 family updated on plan of care and expected duration. Pain level reassessed. Patient is alert, oriented x 3, equal unlabored respirations, skin warm/dry/pink. 16:41 Reassessment: Called for report on 2nd floor. Pt unassigned to a nurse yet. Nurse will ca1 call back to take report once assigned. Vital Signs: 12:46 BP 118 / 71; Pulse 70; Resp 18; Temp 97.5(TE); Pulse Ox 98% on R/A; Weight 104.33 kg aj1 (R); Height 6 ft. 0 in. (182.88 cm) (R); Pain 0/10; 13:51 BP 125 / 54; Pulse 65; Resp 16 S; Pulse Ox 96% on R/A; ca1 14:06 BP 127 / 66 LA Supine (auto/reg); Pulse 64; Resp 18; Pulse Ox 97% on R/A; dh4 14:06 BP 113 / 62 LA Sitting (auto/reg); Pulse 68; Resp 18; Pulse Ox 100% on R/A; dh4 14:06 BP 93 / 57 LA Standing (auto/reg); Pulse 72; Resp 18; Pulse Ox 100% on R/A; dh4 14:55 BP 126 / 64; Pulse 68; Resp 15 S; Pulse Ox 99% on R/A; ca1 15:51 BP 127 / 7; Pulse 67; Resp 15 S; Pulse Ox 100% on R/A; ca1 16:41 BP 121 / 70; Pulse 67; Resp 15 S; Pulse Ox 99% on R/A; ca1 12:46 Body Mass Index 31.19 (104.33 kg, 182.88 cm) aj1 ED Course: 12:40 Patient arrived in ED. mr 12:40 Pito Hicks DO is Private Physician. mr 12:49 Triage completed. aj1 12:55 Arm band placed on Patient placed in an exam room. aj1 13:03 Qamar Espitia PA is PHCP. [facility] 13:03 Devon Major MD is Attending Physician. [facility] 13:05 Patient has correct armband on for positive identification. Placed in gown. Bed in low ca1 position. Call light in reach. Side rails up X2. Pulse ox on. NIBP on. Warm blanket given. 13:09 Sumi Perkins, NELA is Primary Nurse. ca1 13:19 Initial lab(s) drawn, by me, sent to lab. Inserted saline lock: 20 gauge in right ca1 antecubital area, using aseptic technique. Blood collected. 14:20 CT Abd/Pelvis - IV Contrast Only In Process Unspecified. EDMS 15:13 Heath Mascorro MD is Hospitalizing Provider. [facility] 16:58 No provider procedures requiring assistance completed. Patient admitted, IV remains in ca1 place. Administered Medications: 14:37 Drug: NS 0.9% 500 ml Route: IV; Rate: bolus; Site: right antecubital; ca1 15:51 Follow up: Response: No adverse reaction; IV Status: Completed infusion; IV Intake: ca1 500ml Intake: 15:51 IV: 500ml; Total: 500ml. ca1 Outcome: 15:14 Decision to Hospitalize by Provider. [facility] 16:59 Admitted to Med/surg accompanied by tech, via wheelchair, room 205, with chart, Report ca1 called to NELA Mallory 16:59 Condition: stable 16:59 Instructed on the need for admit. 17:17 Patient left the ED. iw Signatures: Dispatcher [employer] EDMS Cassy Torrez, RN RN aj Qamar Espitia PA PA Elza Avelar Lisa Anaya RN RN Sumi Perkins RN RN [facility] Gordo Morales [facility] Corrections: (The following items were deleted from the chart) 13:51 13:05 GI: Abdomen is round non-distended, Bowel sounds present X 4 quads. Abd is soft ca1 and non tender X 4 quads. ca1
--- NOTE | 2019-11-29 16:43 | P.HP ---
Certification for Inpatient Patient admitted to: Inpatient With expected LOS: >2 Midnights Practitioner: I am a practitioner with admitting privileges, knowledge of patient current condition, hospital course, and medical plan of care. Services: Services provided to patient in accordance with Admission requirements found in Title 42 Section 412.3 of the Code of Federal Regulations Patient History Date of Service: 11/29/19 Primary Care Provider: Dr. Hicks Reason for admission: Lower GI bleed History of Present Illness: 79yo male PMH: presents to ED due to 2 episodes of painless BRBPR during/after 2 bowel movements this morning. He states he woke up at 6:30 a.m. and thought he soiled himself, underwent a went to the bathroom he realized that there is a lot of blood in his underwear and he passed a small round hard stool followed by a "lot of water". He went back to sleep and then at around 9:30 a.m. this occurred again. Due to these 2 episodes he presented to the ED. He states he recently underwent EGD in colonoscopy by Dr. grove on 11/24 as part of workup for unexplained anemia. He was supposed to undergo cardiac catheterization and stent placement however this was canceled until further workup of his anemia was done. He reports no prior history of any bleeding, no pain, no history of easy bleeding or bruising. He is taking 81 mg aspirin daily, otherwise no other anti-platelet or anticoagulation, or NSAIDs. He otherwise reports being in his usual state of health - has been taking 2 mg Bumex b.i.d. for the past several weeks to months due to swelling. Prior to his bowel movements this morning, he had not had a bowel movement since before the colonoscopy ~ 4 days ago. He typically has a bowel movement daily. In the ED he no longer had any bleeding, his hemoglobin was noted to be 9.1, unclear baseline. His vital signs were within normal limits and stable. ED contacted Dr. Estrada who recommended admission for further evaluation with a small bowel series and a bleeding scan. Allergies No Known Allergies Allergy (Verified 11/25/19 07:46) Home Medications: Amlodipine Besylate 10 mg PO DAILY 11/23/19 Ascorbic Acid [Vitamin C] 1,000 mg PO 11/23/19 Aspirin Chewable [Aspirin Chewable*] 81 mg PO DAILY 11/23/19 Bumetanide [Bumex] 1 mg PO TID 11/23/19 Cholecalciferol (Vitamin D3) [Vitamin D3] 25 mcg PO BID 11/23/19 Colesevelam [Welchol] 625 mg PO DAILY 11/23/19 Cyanocobalamin (Vitamin B-12) [Vitamin B12] 2,500 mcg PO BID 11/23/19 Cyclosporine [Restasis] 1 drop EACH EYE BID 11/23/19 Escitalopram Oxalate [Lexapro] 10 mg PO DAILY 11/23/19 Gabapentin 1,200 mg PO BID 11/23/19 Icosapent Ethyl [Vascepa] 4 gm PO DAILY 11/23/19 Insulin Lispro [Humalog] unit SQ CONT 11/23/19 Iron 28 mg PO DAILY 11/23/19 Levothyroxine [Synthroid] 100 mcg PO [id number] 11/23/19 Omeprazole 20 mg PO DAILY 11/23/19 Potassium Chloride [Klor-Con 10] 10 meq PO TID 11/23/19 Saw [place] Fruit [Saw [place]] 1 cap PO QID 11/23/19 Turmeric Root Extract [Turmeric] 500 mg PO DAILY 11/23/19 Vitamin B Complex [B Complex] 1 each PO DAILY 11/23/19 - Past Medical/Surgical History -: HTN -: DM2 -: CAD -: GERD -: A left knee replacement -: Tonsillectomy -: Left shoulder surgery - Family History brother -: Heart disease, Diabetes Father -: Other (see notes) Notes: Aneurysm - Social History Smoking Status: Never smoker Alcohol use: No Review of Systems 10-point ROS is otherwise unremarkable Physical Examination - Physical Exam General: Alert, In no apparent distress HEENT: Atraumatic, PERRLA, Mucous membr. moist/pink, EOMI, Sclerae nonicteric Neck: Supple, No LAD Respiratory: Clear to auscultation bilaterally, Normal air movement Cardiovascular: Edema (2+ to upper thighs) Gastrointestinal: Soft and benign, No tenderness, Hyperactive, Distended (Minimally) Musculoskeletal: No tenderness Integumentary: No rashes Neurological: Normal speech, Normal affect - Studies Laboratory Data (last 24 hrs) 11/29/19 13:19: WBC 8.0, Hgb 9.1 L, Hct 27.6 L, Plt Count 278 11/29/19 13:19: Sodium 141, Potassium 3.3 L, BUN 14, Creatinine 1.38 H, Glucose 50 L, Total Bilirubin 0.7, AST 29, ALT 25, Alkaline Phosphatase 117, Lipase 103 Microbiology Data (last 24 hrs): 11/29/19 13:59 Stool Stool Occult Blood (THANH) - Final [employer] Assessment and Plan - Advance Directives Does patient have a Living Will: No Does patient have a Durable POA for Healthcare: No - Code Status/Comfort Care Code Status Assessed: Yes Code Status: Do Not Attempt Resuscitat Physician Review Additional Text: Acute Lower GI bleed -hemoglobin 9.1, unknown baseline, last on record was ~11 in 2014. will trend Hgb q6hr for now -serial abdominal exams -check INR/PTT -review of colonoscopy reveals patient has an internal hemorrhoid -given that the bleeding is painless, could be hemorrhoid that is bleeding vs diverticula -CT scan with large stool burden and distended rectum - discussed with GI, Dr. Estrada - stated ok for CLD for now -ED noted he has positive orthostatics, will give gentle IVF (h/o CHF) -typed and screened in the ED CAD CHF, unknown type DM2 HTN -stable, confirm and resume home meds -CT did note small bilateral pleural effusions -patient states he has been taking double his usual Bumex dose (now taking 2mg BID) -he reports a several lb weight loss over the past several days and improvement in swelling -manages own insulin pump, can continue Dispo: f/u H/H, pending further michele mcdaniel in 24-48hrs Time Spent Managing Pts Care (In Minutes): 55
[2019-11-29 18:01] VITALS: BMI 31.1
[2019-11-29] MEDS ORDERED: D50W 25 GM/50 ML SYRINGE/VIAL IV PRN (18:06)
[2019-11-29] MEDS ORDERED: GLUCAGON 1 MG/VIAL IM PRN (18:06)
[2019-11-29] MEDS: NA CHLORIDE 0.9% 1,000 ML IV SCH (18:34)
[2019-11-29 18:41] LABS: Absolute Lymphocytes (CBC) 0.7 K/uL (0.7-4.9); Basophils % 0.6 % (0-1.3); Hematocrit 24.9 % (39.6-49.0); Lymphocytes % 10.4 % (15.3-44.8); MPV 7.8 fL (7.6-11.3); RBC Red Blood Cell Count 3.17 M/uL (4.33-5.43)
[2019-11-29 18:58] LABS: Urine Appearance CLOUDY; Urine Bilirubin NEGATIVE (NEG); Urine Blood TRACE (NEG); Urine Color YELLOW; Urine Glucose NEGATIVE (NEG); Urine Protein NEGATIVE (NEG); Urine Specific Gravity 1.025 (1.005-1.030); Urine Urobilinogen 0.2 mg/dL (0.2-1.0); Urine pH 5.5 (5.0-7.0)
[2019-11-29 19:02] LABS: Protime INR 1.16
[2019-11-29 19:07] LABS: Urine Microscopic Reflex ORDER UMIC
[2019-11-29] MEDS: ACETAMINOPHEN 500 MG TAB PO ONE ×2 (19:26→22:01)
[2019-11-29] MEDS: DIPHENHYDRAMINE 50 MG/ML VIAL IV ONE ×2 (19:26→22:01)
[2019-11-29] MEDS ORDERED: NA CHLORIDE 0.9% 250 ML IV SCH (20:00)
[2019-11-29 20:03] LABS: Urine Bacteria >50 /HPF (NONE SEEN); Urine Culture Reflex Order REFLEXED; Urine RBC <5 /HPF (NONE SEEN)
--- NOTE | 2019-11-29 20:39 | RAD REPORT ---
EXAM DESCRIPTION: RAD - Small Bowel Series - 11/29/2019 8:24 pm CLINICAL HISTORY: Bright red blood per rectum s/p c-scope/EGD 4 days COMPARISON: Abdomen Pelvis W Contrast dated 11/29/2019 FINDINGS: Pizza [employer] film shows a nonspecific bowel gas pattern. No obstruction or free air. Large calcif ied gallstone seen in the right upper quadrant. Contrast is present in the urinary bladder from prior study. Penile prosthesis reservoir or pump overlies the lower left pelvis. Stomach is only partially distended. Rounded contrast opacified structures in the stomach may be part ially opacified gastric polyps or possible diverticulae. Stomach assessment is limited in better visu alized with endoscopy. No delay in transit of contrast into the small bowel. Small bowel is normal in diameter with no muco yesenia fold thickening. Patient has multiple variably sized duodenal diverticula with a large fourth por tion diverticulum containing food content. No dilated small bowel loops or mucosal thickening. No sma ll bowel mass identifiable. Colon was opacified approximately 1 hour into the examination. Terminal i leum was not optimally visualized. The request was made by the ordering service to terminate the exam ination in order to initiate blood transfusion. IMPRESSION: No small bowel suspicious mass. No dilatation or mucosal thickening identified. Patient has multiple variably sized duodenal diverticula. There are questionable small polyps or dive rticula of the gastric mucosa which was only partially visualized on this study. Contrast reached the colon approximately 1 hour. Terminal ileum was not yet optimally visualized when the ordering service requested termination of the examination in order to initiate blood transfusion .
[2019-11-29 20:54] LABS: Absolute Lymphocytes (CBC) 0.6 K/uL (0.7-4.9); Basophils % 0.4 % (0-1.3); Hematocrit 23.7 % (39.6-49.0); Lymphocytes % 8.4 % (15.3-44.8); MPV 8.3 fL (7.6-11.3); RBC Red Blood Cell Count 3.05 M/uL (4.33-5.43)
[2019-11-29 21:18] VITALS: O2SAT 98
[2019-11-29] MEDS ORDERED: NA CHLORIDE 0.9% 250 ML ONE (22:23)
[2019-11-29] MEDS ORDERED: CEFTRIAXONE 1 GM/NS 50 ML 1 GM/50 ML BAG IV SCH (22:59)
[2019-11-29] MEDS ORDERED: CEFTRIAXONE/SWI 1gm 1 GM/10 ML SYR IV SCH (23:00)
[2019-11-29 23:53] VITALS: BP 132/61; TEMP 97.3
--- NOTE | 2019-11-30 01:14 | P.DS ---
Admission Date: 11/29/19 Discharge Date: 11/30/19 Primary Care Provider: Dr. Hicks Disposition: TRANSFER TO [facility] Discharge Condition: FAIR Reason for Admission: Lower GI bleed Consultations: Gastroenterology Dr. Estrada Procedures: CT abdomen pelvis FINDINGS: Small bilateral pleural effusions are present right greater than left. Cardiomegaly is present without pericardial effusion. Prominent nodular capsule contour to the liver. Left lobe is prominent. No focal liver lesion. No portal vein thrombosis. No splenomegaly or focal splenic finding. No pancreatic abnormality seen. Large calcified stones are present in the gallbladder. No acute gallbladder or biliary tree process seen. Symmetric renal function is seen with no hydronephrosis or suspicious renal mass. No pyelonephritis or acute parenchymal process. No bladder abnormalities. No adrenal abnormalities. Stool distends the rectum to 8 cm. No rectal wall thickening or mass identified. Patient has a prominent diverticulosis pattern without diverticulitis confirmed. Sigmoid colon is redundant extending to the anterior upper left abdomen. Overall no colon wall thickening or mass identified. There is moderately large stool volume filling but not dilating right-side of the colon and transverse colon. The appendix is normal. No free air or pneumatosis. Trace amount of stranding is present in the fatty tissues. Minimal free fluid is present adjacent to the liver and spleen. No mass or bulky lymphadenopathy. Small fat filled inguinal hernias are present. Penile reservoir pump is present in the left lower pelvis. Disc and bone degenerative changes are present. No acute process seen. IMPRESSION: Rectum is distended by stool to 8 cm. No rectal wall thickening or mass. Prominent diverticulosis of the left side colon with moderately large stool volume in the transverse and right-side colon. Minimal stranding is seen in the fatty tissues. A minimal diverticulitis is possible. Small-bowel series FINDINGS: Surgical Pathologist film shows a nonspecific bowel gas pattern. No obstruction or free air. Large calcified gallstone seen in the right upper quadrant. Contrast is present in the urinary bladder from prior study. Penile prosthesis reservoir or pump overlies the lower left pelvis. Stomach is only partially distended. Rounded contrast opacified structures in the stomach may be partially opacified gastric polyps or possible diverticulae. Stomach assessment is limited in better visualized with endoscopy. No delay in transit of contrast into the small bowel. Small bowel is normal in diameter with no mucosal fold thickening. Patient has multiple variably sized duodenal diverticula with a large fourth portion diverticulum containing food content. No dilated small bowel loops or mucosal thickening. No small bowel mass identifiable. Colon was opacified approximately 1 hour into the examination. Terminal ileum was not optimally visualized. The request was made by the ordering service to terminate the examination in order to initiate blood transfusion. IMPRESSION: No small bowel suspicious mass. No dilatation or mucosal thickening identified. Patient has multiple variably sized duodenal diverticula. There are questionable small polyps or diverticula of the gastric mucosa which was only partially visualized on this study. Contrast reached the colon approximately 1 hour. Terminal ileum was not yet optimally visualized when the ordering service requested termination of the examination in order to initiate blood transfusion. Medical problem list Acute lower GI bleed-suspect diverticular Diabetes mellitus type 2 Coronary artery disease Hypertension Brief History of Present Illness: 79-year-old male with history of diabetes mellitus type 2, hypertension, CAD, hypothyroidism presented to the emergency department for bright red blood per rectum. Patient with recent EGD/colonoscopy on 11/25/2019. Gastroenterology was consulted. Initial hemoglobin 9.1, patient placed on clear liquids and admitted. Hospital Course: 79-year-old male with history of diabetes mellitus type 2, hypertension, CAD, hypothyroidism presented to the emergency department for bright red blood per rectum. Patient with recent EGD/colonoscopy on 11/25/2019. Gastroenterology was consulted. Initial hemoglobin 9.1, patient placed on clear liquids and admitted. Patient proceeded to have 4-5 more episodes of bright red blood per rectum with 1 episode of approximately 600 cc. Gastroenterology consulted who prefers patient be transferred for interventional radiology/endoscopy evaluation. Patient hemoglobin dropped to 7.6, 1 unit packed red blood cells given. Patient's vital signs at time of transfer, blood pressure 134/61, heart rate 64, respiratory rate 18, temperature 97.3, oxygen saturation 98% on room air. Patient denies any pain states he is feeling well. Case was discussed with hospitalist attending both here and [facility] receiving facility. Case was also discussed with accepting food service tray attendant. Vital Signs/Physical Exam: Temp Pulse Resp BP Pulse Ox 97.3 F 64 17 132/61 98 11/29/19 23:52 11/29/19 23:52 11/29/19 23:52 11/29/19 23:52 11/29/19 23:52 General: Alert, In no apparent distress, Oriented x3 HEENT: Atraumatic, Normocephalic, PERRLA, Mucous membr. moist/pink Neck: Supple Respiratory: Clear to auscultation bilaterally, Normal air movement Cardiovascular: No edema, Normal S1 S2 Gastrointestinal: Normal bowel sounds, No tenderness, No rebound, No guarding Musculoskeletal: No contractures, No erythema, No tenderness Integumentary: No significant lesion, No tenderness/swelling Neurological: Normal speech, Normal strength at 5/5 x4 extr, Normal tone, Sensation intact Laboratory Data at Discharge: WBC 7.5 K/uL (4.3-10.9) 11/29/19 20:41 Hgb 7.6 g/dL (13.6-17.9) L* 11/29/19 20:41 Hct 23.7 % (39.6-49.0) L 11/29/19 20:41 Plt Count 227 K/uL (152-406) 11/29/19 20:41 PT 13.7 SECONDS (9.5-12.5) H 11/29/19 18:31 INR 1.16 11/29/19 18:31 APTT 30.6 SECONDS (24.3-36.9) 11/29/19 18:31 Sodium 141 mmol/L (136-145) 11/29/19 13:19 Potassium 3.3 mmol/L (3.5-5.1) L 11/29/19 13:19 BUN 14 mg/dL (7-18) 11/29/19 13:19 Creatinine 1.38 mg/dL (0.55-1.3) H 11/29/19 13:19 Glucose 50 mg/dL (74-106) L 11/29/19 13:19 Total Bilirubin 0.7 mg/dL (0.2-1.0) 11/29/19 13:19 AST 29 U/L (15-37) 11/29/19 13:19 ALT 25 U/L (12-78) 11/29/19 13:19 Alkaline Phosphatase 117 U/L (45-117) 11/29/19 13:19 Lipase 103 U/L (73-393) 11/29/19 13:19 Home Medications: Amlodipine Besylate 10 mg PO BID 11/23/19 Ascorbic Acid [Vitamin C] 1,000 mg PO DAILY 11/23/19 Aspirin Chewable [Aspirin Chewable*] 81 mg PO DAILY 11/23/19 Bumetanide [Bumex] 1 mg PO BID 11/23/19 Cholecalciferol (Vitamin D3) [Vitamin D3] 25 mcg PO BID 11/23/19 Colesevelam [Welchol] 625 mg PO DAILY 11/23/19 Cyanocobalamin (Vitamin B-12) [Vitamin B12] 2,500 mcg PO BID 11/23/19 Cyclosporine [Restasis] 1 drop EACH EYE BID 11/23/19 Escitalopram Oxalate [Lexapro] 10 mg PO DAILY 11/23/19 Gabapentin 1,200 mg PO BID 11/23/19 Icosapent Ethyl [Vascepa] 4 gm PO DAILY 11/23/19 Insulin Lispro [Humalog] 150 - 175 unit SQ CONT 11/23/19 Iron 28 mg PO DAILY 11/23/19 Levothyroxine [Synthroid] 100 mcg PO [id number] 11/23/19 Omeprazole 20 mg PO DAILY 11/23/19 Potassium Chloride [Klor-Con 10] 10 meq PO BID 11/23/19 Saw [place] Fruit [Saw [place]] 1 cap PO QID 11/23/19 Turmeric Root Extract [Turmeric] 500 mg PO DAILY 11/23/19 Vitamin B Complex [B Complex] 1 each PO DAILY 11/23/19 Biotin 10,000 mcg PO BID 11/29/19 Patient Discharge Instructions: Please continue with evaluation/management at [facility]. Diet: NPO Activity: Fall precautions Time spent managing pt's care (in minutes): 55
[2019-11-30] MEDS: NA CHLORIDE 0.9% 1,000 ML IV SCH (02:22)
[2019-11-30 03:28] LABS: Protime INR 1.22
[2019-11-30 03:36] LABS: Albumin 2.7 g/dL (3.4-5.0); Bilirubin Total 0.8 mg/dL (0.2-1.0); Magnesium 1.9 mg/dL (1.8-2.4); Potassium 3.5 mmol/L (3.5-5.1); Protein, Total 5.5 g/dL (6.4-8.2)
[2019-11-30 03:43] LABS: Absolute Lymphocytes (CBC) 0.9 K/uL (0.7-4.9); Basophils % 0.7 % (0-1.3); Hematocrit 25.8 % (39.6-49.0); Lymphocytes % 14.8 % (15.3-44.8); MPV 8.7 fL (7.6-11.3); RBC Red Blood Cell Count 3.21 M/uL (4.33-5.43)
== END 2019-11-30 04:07 | disposition short-term general hospital (02) | DRG 379 ==
LOC: ER 12:36 → ERHOLD 16:14 → 2ND 16:59
PROVIDERS: ADMIT Hospitalist; ATTEND Hospitalist
PROC: 30233N1 Transfusion of Nonautologous Red Blood Cells into Peripheral Vein, Percutaneous Approach (ICD-10-PCS; principal; 2019-11-29)
DX: K57.11 Diverticulosis of small intestine without perforation or abscess with bleeding (principal); E11.9 Type 2 diabetes mellitus without complications; E78.5 Hyperlipidemia, unspecified; E03.9 Hypothyroidism, unspecified; I25.10 Atherosclerotic heart disease of native coronary artery without angina pectoris; K21.9 Gastro-esophageal reflux disease without esophagitis; K64.8 Other hemorrhoids; I11.0 Hypertensive heart disease with heart failure; I50.9 Heart failure, unspecified; Z66 Do not resuscitate; Z79.4 Long term (current) use of insulin; Z95.5 Presence of coronary angioplasty implant and graft; Z79.899 Other long term (current) drug therapy; Z79.890 Hormone replacement therapy; Z96.41 Presence of insulin pump (external) (internal); Z96.652 Presence of left artificial knee joint; Z79.82 Long term (current) use of aspirin; Z20.828 Contact with and (suspected) exposure to other viral communicable diseases
CPT/HCPCS: 36415; 36430; 74177; 74250; 80048; 80053; 80076; 81003; 81015; 82274; 82947; 83690; 83735; 85025; 85610; 85730; 86850; 86900; 86901; 87045; 87046; 87086; 87088; 89055; 94760; 96360; 99285; J0696; J1200; J7030; J7040; J7050; P9016; Q9967; U0003

== ENCOUNTER 2020-01-01 07:30 | Day surgery (SDC) | payer OTHER, MEDICARE ==
--- OUTSIDE RECORDS SUMMARY | 2020-01-01 07:44 | XMS REPORT | Clinical Summary ---
:1940 Author Organization [facility] Address [address] [place] [address] Care Team Providers Name Role Phone Sue Hicks DO Primary Care Provider Allergies Active Allergy Reactions Severity Noted Date Comments No Known Drug Allergies 12/26/2015 Medications Medication Sig Dispensed Refills Start End Status Date Date colesevelam (WELCHOL) Take 1,875 mg 0 Active 625 mg tablet by mouth daily. Taking 6 tablet in the am escitalopram (LEXAPRO) Take 10 mg by 0 05/04/19 Active 10 MG tablet mouth daily. 17 VASCEPA 1 gram capsule Take 4 g by 0 07/08/19 Active mouth daily. 17 Taking 4 grams in the am SYNTHROID 100 mcg Take 100 mcg 0 05/10/19 Active tablet by mouth 17 daily. omeprazole (PriLOSEC) Take 20 mg by 0 07/10/19 Active 20 MG capsule mouth daily. 17 Daughter Amarilis reported medications gabapentin (NEURONTIN) Take 1,200 mg 0 03/20/19 Active 300 mg capsule by mouth 2 20 (two) times a day. BIOTIN ORAL Take 15,000 0 Active mcg by mouth daily. BUMETanide (BUMEX) 1 Take 2 mg by 0 Active MG tablet mouth 2 (two) times a day. potassium chloride Take 40 mEq by 0 Active (MICRO-K) 10 MEQ CR mouth 2 (two) capsule times a day. cycloSPORINE Administer 1 0 Acti ve (RESTASIS) 0.05 % drop to both ophthalmic emulsion eyes 2 (two) times a day. INSULIN SUBCUTANEOUS Inject under 0 Active PUMP, HUMALOG, 100 the skin UNITS/ML INSULIN PUMP continuously. INFUSION (HumaLOG) 150 units depending on blood glucose Via insulin pump b complex vitamins Take 1 capsule 0 Active capsule by mouth daily. cholecalciferol, Take 2,000 0 Ac tive vitamin D3, 50 mcg Units by mouth (2,000 unit) capsule daily. capsule ascorbic acid, vitamin Take 1,000 mg 0 Active C, (vitamin C) 1000 MG by mouth tablet daily. ferrous sulfate 325 Take 325 mg by 0 Active (65 FE) MG tablet mouth daily with breakfast. calcium carbonate Take 1,000 mg 0 Active (CALCIUM 500 ORAL) by mouth daily. gummies amLODIPine (NORVASC) Take 10 mg by 0 Active 10 mg tablet mouth daily. aspirin (ECOTRIN) 81 Take 1 tablet 30 tablet 2 12/30/1903/29 Active MG enteric coated (81 mg total) 20 021 tablet by mouth daily for 90 days. atorvastatin (LIPITOR) Take 1 tablet 30 tablet 2 12/30/1929/04 Active 40 mg tablet (40 mg total) 20 021 by mouth daily for 90 days. clopidogreL (PLAVIX) Take 1 tablet 30 tablet 2 12/30/1903/29 Active 75 mg tablet (75 mg total) 20 021 by mouth daily for 90 days. amLODIPine (NORVASC) daily. 0 06/13/19 Discontinued 10 mg tablet 17 020 (Reorde r) hydroCHLOROthiazide 25 mg 2 (two) 0 07/08/19 Discontinued (HYDRODIURIL) 25 MG times a day. 17 020 tablet HUMALOG 100 unit/mL 0 04/16/19 Discontinued injection 17 020 spironolactone 50 mg 2 (two) 0 07/08/19 D iscontinued (ALDACTONE) 25 MG times a day. 17 020 tablet telmisartan (MICARDIS) 0 05/10/19 Discontinued 80 MG tablet 17 020 (Formul alexus change) aspirin (ECOTRIN) 81 Take 81 mg by 0 12/16 Discontinued MG enteric coated mouth daily. 020 (Reorder) tablet calcium Take 1 tablet 0 Discon tinued crb,[id number]-genis by mouth 020 (CITRACAL + BONE daily. DENSITY) 300-200-13.5 mg-unit-mg tablet cyanocobalamin 1,000 1 mL. 0 Discontinued mcg/mL injection 020 amLODIPine (NORVASC) Take 1 tablet 180 tablet 0 08/31/1912/10 Discontinued 10 mg tablet (10 mg total) 20 020 by mouth 2 (two) times a day. aspirin (ECOTRIN) 81 Take 1 tablet 90 tablet 2 12/17/1912/29 Discontinued MG enteric coated (81 mg total) 20 020 (Reorder) tablet by mouth daily for 90 days. clopidogreL (PLAVIX) Take 1 tablet 90 tablet 3 12/17/1912/29 Discontinued 75 mg tablet (75 mg total) 20 020 (Re order) by mouth daily for 90 days. atorvastatin (LIPITOR) Take 1 tablet 90 tablet 2 12/17/1901/05 Discontinued 40 mg tablet (40 mg total) 20 020 (Re order) by mouth daily for 90 days. Active Problems Problem Noted Date Abnormal stress test 08/28/2019 History of coronary artery stent placement 03/31/2019 Chest pain 09/30/2018 SOB (shortness of breath) 09/30/2018 Coronary artery disease involving [place] coronary chapin ry of [place] heart 07/10/2016 without angina pectoris Hyperlipidemia 12/26/2015 Essential hypertension 12/26/2015 Atherosclerosis of coronary artery 12/26/2015 Encounters Date Type Specialty Care Team Description 12/30/2019 Surgery Procedural Cardiology Raegan Martinezut kallie Antoine MD coronary intervention [9 2920 (CPT)] 12/30/2019 Hospital Encounter Procedural Cardiology Raegan Martinez Coronary artery disease involving [place] coronary artery of [place] heart without angina pectoris; MD Elina SOB (shortness of breath) 12/30/2019 Travel 12/18/2019 Orders Only Cardiology Kameron Bonner MA Coronary arter y disease involving [place] coronary artery of [place] heart without angina pectoris (Primary Dx); SOB (shortness of breath); Abnormal stress test; Exposure to KATHERYN S-associated coronavirus 12/17/2019 Surgery Procedural Cardiology Raegan Martinez PCI st ent [[id number] MD Elina (CPT)] 12/17/2019 Hospital Encounter Procedural Cardiology Raegan Martinez Coronary artery disease involving [place] coronary artery of [place] heart without angina pectoris; MD Elina SOB (shortness of breath) 12/17/2019 Travel 12/15/2019 Documentation Medical Records Provider, Unknown 12/10/2019 Orders Only Cardiology Kameron Bonner MA Coronary arter y disease involving [place] coronary artery of [place] heart without angina pectoris (Primary Dx); SOB (shortness of breath) 10/06/2019 Office Visit Cardiology Raegan Martinez Coronary artery disease involving [place] coronary artery of [place] heart without angina pectoris (Primary Dx); MD Elina SOB (shortness of breath); Exposure to KATHERYN S-associated coronavirus 10/05/2019 Travel 09/25/2019 Telephone Gastroenterology Ashlyn Lawrence MA 09/03/2019 Surgery Procedural Cardiology Raegan Martinez Select misa coronary MD Elina angiography [93 [id number] (CPT)] 09/03/2019 Hospital Encounter Procedural Cardiology Raegan Martinez Chest pain, unspecified type; MD Elina SOB (shortness of breath); Abnormal stress test; CAD in [place] a rtery 09/03/2019 Travel 09/02/2019 Travel 08/31/2019 [...] test; Pre-operative l aboratory examination; CAD in [place] a rtery 08/27/2019 Travel 08/27/2019 Telephone Cardiology Kameron Bonner MA Chest Pain 03/31/2019 Office Visit Cardiology Raegan Martinez CAD in [place] a rtery (Primary Dx); MD Elina History of james nary artery stent placement after 12/31/2018 Surgical History Surgery Date Site/Laterality Comments CARDIAC CATHETERIZATION Left REPLACEMENT TOTAL KNEE Left TONSILLECTOMY CARDIAC CATHETERIZATION 09/03/2019 N/A Procedur e: Selective coronary angiography; Valentin rgeon: Raegan Martinez MD; Location: [facility] Invas[facility] e Location; Service: Cardiol ogy; Laterality: N/A; CARDIAC CATHETERIZATION 12/17/2019 N/A Procedur e: PCI stent; Surgeon: Raegan Martinez MD; Location: [facility] Visual Specialist Invasive Location; Service: Cardio logy; Laterality: N/A; PCI LAD st ent x2 Medical devices from this surgery are in the Impla nts section. CARDIAC CATHETERIZATION 12/30/2019 N/A Procedur e: Percutaneous coronary intervention; Surgeon: Raegan Martinez MD; Location: [facility] Invasive Location; Service: Cardiology; Laterality: N/A; PCI STUDIO ARTIST CFX stent x2 OM Medical devices from this surgery are in the Implants section. Medical History Medical History Date Comments Diabetes mellitus (HCC) Hypertension Hyperlipidemia Disease of thyroid gland Family History Medical History Relation Name Comments CABG/Stent Brother Heart attack Brother Relation Name Status Comments Brother Social History Tobacco Use Types Packs/Day Years Used Date Never Smoker Smokeless Tobacco: Never Used Alcohol Use Drinks/Week oz/Week Comments No Sex Assigned at Date Recorded Not on file COVID-19 Exposure Response Date Recorded In the last month, have you been in contact with No / Unsure 12/30/2019 5:50 AM CDT someone who was confirmed or suspected to have Coronavirus / COVID-19? Last Filed Vital Signs Vital Sign Reading Time Taken Comments Blood Pressure 115/54 12/30/2019 2:30 PM CDT Pulse 63 12/30/2019 3:00 PM CDT Temperature 36.1 C (96.9 F) 12/30/2019 10:20 AM CDT Respiratory Rate 12 12/30/2019 3:00 PM CDT Oxygen Saturation 98% 12/30/2019 3:00 PM CDT Inhaled Oxygen Concentration - - Weight 104 kg (229 lb 5 oz) 12/30/2019 7:42 AM CDT Height 182.9 cm (6') 12/30/2019 7:42 AM CDT Body Mass Index 31.1 12/30/2019 7:42 AM CDT Plan of Treatment Health Maintenance Due Date Last Done Comments DIABETES: RETINAL EYE EXAM 1948 DIABETIC FOOT EXAM 1948 URINE MICROALBUMIN 1948 SHINGLES VACCINES (#1) 1988 65+ PNEUMOCOCCAL VACCINE (1 of 1 - PPSV23) 2003 INFLUENZA VACCINE 10/10/[address] Area [address] Light Mechanic Device Shelf Model / Identifier Expiration Serial / Date Lot Stent System 3.0 X 38mm Resolute Hannah Rx Coronary - [id number] C oronary N/A: [employer] [place] - [id number] / Implanted: Qty: 1 on 12/17/2019 at [facility] Stents N/A [facility] RYHTYM / MGMT Stent System 4.0 X 08mm Resolute Hannah Rx Coronary - [id number] C oronary N/A: [employer] [place] - [id number] / Implanted: Qty: 1 on 12/17/2019 at [facility] Stents N/A [place] [facility] RYHTYM / MGMT Stent Eluting Coronary 2.50mm X 18mm Rapid-Exchange - [id number] Coronary N/A: ASHLEY [id number] / Implanted: Qty: 1 on 12/30/2019 at [facility] Stents N/A [place] [employer] / Stent Cornry Sys Synergy Monorail Everolimus Elt 2.5x20mm - [id number] Coronary N/A: BSC 01/18/2021 [id number] / Implanted: Qty: 1 on 12/30/2019 at [facility] Stents N/A IN [facility]AL / CARDIOLOGY [id number] Procedures Procedure Name Priority Date/Time Associated Diagnosis Comme nts POC GLUCOSE Routine 12/30/2019 10:59 Results for this AM CDT procedure are i n the results section. ECG PRE/POST OP Routine 12/30/2019 10:47 Results for this AM CDT procedure are i n the results section. CV PCI Routine 12/30/2019 9:58 Coronary artery Results for this AM CDT disease involving procedure are in [place] coronary artery the r esults of hop[place] heart section. without angina pectoris SOB (shortness of breath) ACTIVATED CLOTTING Routine 12/30/2019 8:46 Resul ts for this TIME AM CDT procedure are i n the results section. SMEAR REVIEW STAT 12/30/2019 8:22 Results for this AM CDT procedure are i n the results section. HC COMPLETE BLD COUNT STAT 12/30/2019 8:22 Re sults for this W/AUTO DIFF AM CDT procedure are i n the results section. POC PANEL Routine 12/30/2019 8:21 Results for this AM CDT procedure are i n the results section. ESTIMATED GFR Routine 12/30/2019 8:21 Results fo r this AM CDT procedure are i n the results section. POC GLUCOSE Routine 12/30/2019 6:50 Results for this AM CDT procedure are i n the results section. POC GLUCOSE Routine 12/17/2019 3:29 Results for this PM CDT procedure are i n the results section. ECG 12-LEAD Routine 12/17/2019 3:08 Results for this PM CDT procedure are i n the results section. CV PCI STENT Routine 12/17/2019 2:53 Coronary artery Results for this PM CDT disease involving procedure are in [place] coronary artery the r esults of hop[place] heart section. without angina pectoris SOB (shortness of breath) ACTIVATED CLOTTING Routine 12/17/2019 2:21 Resul ts for this TIME PM CDT procedure are i n the results section. POC GLUCOSE Routine 12/17/2019 11:40 Results for this AM CDT procedure are i n the results section. TYPE AND SCREEN STAT 12/17/2019 10:44 Results for this AM CDT procedure are i n the results section. HC COMPLETE BLD COUNT STAT 12/17/2019 9:30 Re sults for this W/AUTO DIFF AM CDT procedure are i n the results section. POC PANEL Routine 12/17/2019 9:27 Results for this AM CDT procedure are i n the results section. ESTIMATED GFR Routine 12/17/2019 9:27 Results fo r this AM CDT procedure are i n the results section. POC GLUCOSE Routine 12/17/2019 8:44 Results for this AM CDT procedure are i n the results section. ECG PRE/POST OP STAT 12/17/2019 8:19 Results for this AM CDT procedure are i n the results section. POC GLUCOSE Routine 09/03/2019 1:45 Results for this PM CDT procedure are i n the results section. CV SELECTIVE CORONARY Routine 09/03/2019 1:18 Chest pain, Re sults for this ANGIOGRAPHY PM CDT unspecified type procedure are in SOB (shortness of the result s breath) section. Abnormal stress test CAD in [place] artery POC PANEL Routine 09/03/2019 11:43 Results [...] PM CDT unspecified type procedure are in (34687) SOB (shortness of the result s breath) [...] of the result s breath) section. after 12/31/2018 Results POC glucose (12/30/2019 10:59 AM CDT)Only the most recent of7 resultswithin the time period is included. Pathologist Sig nature POC glucose 119 (H) 65 - 99 mg/dL [facility] Comment: HOSPITAL Clinical Scientist Name: Maged De León Device ID: [id number] Chartable: [facility] Notified RN Specimen Blood Performing Organization Address City/State/ZIP Code Phon e Number [facility] DEPARTMENT OF PATHOLOGY AND [address], [place] [address] GENOMIC [address] [address] ECG Pre/Post Op (in AM) (12/30/2019 10:47 AM CDT)Only the most recent of2 resultswithin the time period is included. Pathologist Sig nature Ventricular rate 67 [facility] Atrial rate 67 [facility] FL interval 220 [facility] QRSD interval 88 [facility] QT interval 374 [facility] QTC interval 395 [facility] P axis 1 77 [facility] QRS axis 1 -43 [facility] T wave axis -3 [facility] EKG impression Sinus rhythm with 1st [facility] degree AV block-Left axis deviation-Electronicall y Signed By Sherice Sigala ([id number]) on 12/31/2019 10:27:30 AM Specimen Narrative Performed At This result has an attachment that is no t available. Performing Organization Address City/State/ZIP Code Phon e Number [facility] MUSE [address] [place] [address] labor representative procedure (12/30/2019 9:58 AM CDT) Specimen Narrative Performed At This result has an attachment that is no t available. PROCEDURE DETAILS SYNGO Attending: Dr. Raegan Martinez MD Interventional Fellow: Maxime Gamboa After obtaining informed consent, the patient was brou ght to the cardiac catheterization suite. He presents for staged PCI of O M STUDIO ARTIST. The right radial artery was located, skin was infiltra lincoln was lidocaine. The artery was accessed using the Seldinger technique, and a 6F glidesheath was inserted. NTG and verapamil were admin istered intra-arterially via sheath. Heparin was administered intravenously. FINDINGS: LM: no disease LAD: patent proximal and mid LAD stent LCx: OM1 and OM2 STUDIO ARTIST The LMT was engaged with the XB 3.5 Guide Catheter o sol a baby-J wire. Based on the guide shots, it appeared that the OM1 ves cruz was larger and supplied more territory than the OM2 and thus it was d ecided to pursue the OM1 STUDIO ARTIST. A corsair with Fielder FC was advanced to the lesion. A associate accountant 200 was also used but the Fielder FC was ultimately used t o cross the STUDIO ARTIST. Angiography demonstrated that the wire appeared to be in the vessel architecture. The corsair was advanced with blood retu rn. The fielder was exchanged for a long penny blue. A second penny blue was advanced to the distal LCX. The OM1 was dilated with a 1.5x15 mm semic ompliant balloon and then 2x15 mm semicompliant balloon. A 2.5x18 mm Xience CASE was placed from the proximal LCX into the OM1. There was difficulty de livering another stent thru this stent, and thus the stent was post-dil ated with a 3x12 mm NC balloon. This allowed for the delivery of a 2.5x20 mm Synergy CASE to the OM1. Final angiography revealed no evidence of dis section or perforation; there was MERCY 3 flow in the circumflex s ystem. There is mild residual disease in the OM1. The mid LCX is pinched by the stent with 40% stenosis but MERCY 3 flow. HEMOSTASIS: TR Band inflated to 15 cc of air EQUIPMENT/ANTICOAGULATION: Right Radial Artery 6F Sheath XB 3.[address], associate accountant 200 coronary wire Anticoagulation: Heparin with ACT >250 sec prior to procedure CONCLUSION: - 2.5x18 mm Xience CASE was placed from the proximal LC X into the OM1 - 2.5x20 mm Synergy CASE to the OM1 PLAN: 1. ASA 81mg daily 2. Clopidogrel 75mg daily . 3. Cardiac medical therapy and aggressive risk factor modification. Cardiac rehabilitation. 4. Transferred in stable condition 5. Patient was instructed to follow-up with his PCP fo r anemia 6. TR band per protocol. Discharge in 6 hours ANESTHESIA Under my supervision, 2 mg of versed was administered intravenously for moderate sedation. Pulse oxymetry, heart rate and blood pressure were con tinuously measured by an independent trained observer present. I spent 80 minutes of face to face attendance with the patient during sedation. Performing Organization Address [facility] Phon e Number [address] [address], Activated clotting time (12/30/2019 8:46 AM CDT)Only the most recent of2 resultswithin the time period is included. Activated clotting 429 (H) 96 - 152 sec [facility] Comment: HOSPITAL Clinical Scientist Name: Shirley Agustin Device ID: [id number] Specimen Performing Organization Address [facility] Phon e Number [facility] DEPARTMENT OF PATHOLOGY AND [address] [place] [phone] GENOMIC MEDICINE [address] [address] Smear review (12/30/2019 8:22 AM CDT) Pathologist Sig nature Platelet slide Severiano adequate COLLAZO SYNAGOGUE review HOSPITAL Specimen Performing Organization Address City/[facility] Phon e Number [facility] DEPARTMENT OF PATHOLOGY AND [address] [place] [address] [phone] [address] CBC with platelet and differential (12/30/2019 8:22 AM CDT)Only the most recent of3 resultswithin the time period is included. WBC 6.54 4.50 - 11.00 [facility] RBC 2.51 (L) 4.40 - 6.00 [facility] HGB 6.8 (LL) 14.0 - 18.0 [facility] Comment: g/dL HOSPITAL HGB results called to and read back by _ANALI MCLEAN/ED (name/location) at _ 08:39 12/30/2019 __ (date/time) by _AK_. HCT 20.9 (L) 41.0 - 51.0 % [facility] MCV 83.3 82.0 - 100.0 [facility] MCH 27.1 27.0 - 34.0 [facility] MCHC 32.5 31.0 - 37.0 [facility] RDW - SD 58.3 (H) 37.0 - 55.0 [facility] MPV 9.9 8.8 - 13.2 [facility] Platelet count 198 150 - 400 [facility] Nucleated RBC 0.00 /100 WBC [facility] Neutrophils 74.7 (H) 39.0 - 69.0 % [facility] Lymphocytes 10.7 (L) 25.0 - 45.0 % [facility] Monocytes 10.1 (H) 0.0 - 10.0 % [facility] Eosinophils 3.4 0.0 - 5.0 % [facility] Basophils 0.6 0.0 - 1.0 % [facility] Immature granulocytes 0.5Comment: 0.0 - 1.0 % [facility] "Immature [facility] granulocytes" (promyelocytes, myelocytes, metamyelocytes) Specimen Blood Performing Organization Address City/[facility] Phon e Number [facility] DEPARTMENT OF PATHOLOGY AND [address] [place] [address] [phone] [place] [address] Estimated GFR (12/30/2019 8:21 AM CDT)Only the most recent of5 resultswithin the time period is included. Pathologist [facility] Estimated GFR 43 (A) mL/min/1.73 [facility] Comment: m2 HOSPITAL Catergory Units Interpretation G1 [...] in 2014. Specimen Blood Performing Organization Address City/[facility] Phon e Number [facility] DEPARTMENT OF PATHOLOGY AND [address] [place] [phone] POC panel (12/30/2019 8:21 AM CDT)Only the most recent of3 resultswithin the time period is included. POC sodium 127 (L) 135 - 148 [facility] mmol/L [facility] POC potassium 4.4 3.5 - 5.0 [facility] mmol/L [facility] POC chloride 93 (L) 99 - 109 [facility] mmol/L [facility] POC CO2 23 (L) 24 - 31 mmol/L [facility] POC glucose 100 (H) 65 - 99 mg/dL [facility] POC BUN 21 8 - 24 mg/dL [facility] POC creatinine 1.5 (H) 0.7 - 1.2 [facility] mg/dl [facility] POC hematocrit 24 (L) 41 - 51 % [facility] POC anion gap 16 8 - 20 mmol/L [facility] Comment: HOSPITAL Clinical Scientist Name: Rowena Medina Device ID: [id number] Specimen Performing Organization Address [facility] Phon e Number [facility] DEPARTMENT OF PATHOLOGY AND [address] [place], [place] [phone] [address] [address] ECG 12 lead (12/17/2019 3:08 PM CDT)Only the most recent of2 resultswithin the time period is included. Pathologist Sig nature Ventricular rate 60 [facility] Atrial rate 60 [facility] FL interval 206 [facility] QRSD interval 92 [facility] QT interval 440 [facility] QTC interval 440 [facility] P axis 1 36 [facility] QRS axis 1 -38 [facility] T wave axis -9 [facility] EKG impression Normal sinus [facility] rhythm-Left axis deviation-Inferior infarct (cited on or before 17-DEC-2019)-Abnormal ECG-- Specimen Narrative Performed At This result has an attachment that is no t available. Performing Organization Address City/State/ZIP Code Phon e Number [facility] [address] [place] [address] labor representative procedure (12/17/2019 2:53 PM CDT) Specimen Narrative Performed At This result has an attachment that is no t available. PROCEDURE DETAILS SYNG Attending: Dr. Raegan Martinez MD Interventional Fellow: Elliot Augustine MD EQUIPMENT/ANTICOAGULATION: Right Radial Artery 6F Sheath XBLAD 4.0 Guide Catheter Penny Blue coronary wire Anticoagulation: Angiomax bolus and Infusion with AC T >250 sec prior to procedure The LMT was engaged with the XBLAD 4.0 Guide Cathete r and a Penny Blue coronary wire was advanced into the distal LAD. The le penny in the mid LAD was pre-dilated with a 2.5 semi-compliant balloon and stented with a 3.0x38 Resolute [place]. Post-dilation with 3.0x20 Euphor a NC balloon. The lesion in the proximal LAD was direct stented with 4.0x8 mm Resolute hannah CASE. Final angiography revealed no evidence of dissection o r perforation; there was MERCY 3 flow and 0% residual stenosis. HEMOSTASIS: TR Band inflated to 15 cc of air PLAN: 1. ASA 81mg daily 2. Clopidogrel 75mg daily . 3. Cardiac medical therapy and aggressive risk factor modification. Cardiac rehabilitation. 4. Transferred in stable condition 5. Plan for staged intervention on OM 1 and 2 CTOs in 3-4 weeks. ANESTHESIA Under my supervision, 2 mg of versed were administered intravenously for moderate sedation. Pulse oxymetry, heart rate and blood pressure were con tinuously measured by an independent trained observer present. I spent 40 minutes of face to face attendance with the patient during sedation. Performing Organization Address City/[facility] Phon e Number [facility] [address] [place] [address], Type and screen (12/17/2019 10:44 AM CDT) Pathologist Sig [facility] ABO grouping A [facility] Rh type POS [facility] Antibody screen (gel) NEG [facility] Specimen Blood Performing Organization Address [facility] Phon e Number [facility] DEPARTMENT OF PATHOLOGY AND [address] [place], [place] [phone] GENOMIC MEDICINE [facility] [address] [place] [address] labor representative procedure (09/03/2019 1:18 PM CDT) Specimen Narrative Performed At This result has an attachment that is no t available. 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 Moderate diffuse [...] the patient during sedation. Performing Organization Address [facility] Code Phon e Number [facility] [id number] [place] [address], Basic metabolic panel (09/03/2019 11:40 AM CDT) Pathologist Sig nature Sodium 126 (L) 135 - 148 mEq/L [facility] Potassium 5.6 (H) 3.5 - 5.0 mEq/L [facility] Chloride 94 (L) 98 - 112 mEq/L [facility] CO2 19 (L) 24 - 31 mEq/L [facility] Anion gap 13@ANIO 7 - 15 mEq/L [facility] BUN 23 8 - 23 mg/dL [facility] Creatinine 1.60 (H) 0.70 - 1.20 mg/dL [facility] Glucose 83 65 - 99 mg/dL [facility] Calcium 8.9 8.8 - 10.2 mg/dL [facility] Specimen Blood Performing Organization Address City/State/ZIP Code Phon e Number [facility] DEPARTMENT OF PATHOLOGY AND [address] [place] [address] [facility] [place] [id number] [place] [address] Transthoracic Echocardiogram Complete, (w Contrast, Strain and 3D if needed) (08/28/2019 1:53 PM CDT) Specimen Narrative Performed At [facility] Echo cardiography Report Pat.Name: RAYMON DONATO Pat.ID: [id number] .Date: 08/28/2019 Refer.MD: AREGAN MARTINEZ MD Exam Time: 1:17:00 PM Study Type:R outine Echo Height: 72in Weight: 247lb BSA: 2.33 m2 Ag e: 1940,79Y Sex: MALE BP: 171/78 HR: 66 bpm Sonogrphr: Jon Cohen, RDCS, RVS Pat. Stat.:Outpatient Room: [facility] Tape Vol: MDCA, ICD - 9: R07.9, R06.02, R94.39 Study Status:Final Echo Event ID:[id number] Order ID: [id number] Reason for Study:Chest pain, unspecified type [R07.9 [...] MV TVI 44 cm 2D Parasternal Long [place] Ao An 1.8 cm LVPWd 1.1 cm [...] Results In - 2019 2:37 PM CDT [facility] Echocardiography Report Pat.Name: RAYMON DONATO Pat.I D: [id number] St.Date: 08/28/2019 Refer .MD: RAEGAN MARTINEZ MD Exam Time: 1:17:00 PM Study Type:Routine Echo Height: 72in Weigh t: 247lb BSA: 2.33 m2 Age: 1 1940,79Y Sex: MALE BP: 171/78 HR: 66 bpm Sonogrphr: Jon Cohen, RDCS, RVS Pat. Stat.:Outpatient Room: [facility] Tape Vol: [facility], ICD - 9: R07.9, R06.02, R94.39 Study Status:Final Echo Event ID:[id number] Order ID: [id number] Reason for Study:Chest pain, unspecified type [R07.9 [...] MV T 44 cm 2D Parasternal Long [place] Ao An 1.8 cm LVPW d 1.1 [...] City/State/ZIP Code Phon e Number [facility] [id number] [place] [address] Prothrombin time with INR (08/28/2019 12:48 PM CDT) Prothrombin time 15.1 (H) 11.5 - 14.5 [facility] INR 1.2 [facility] Comment: [place] The International Normalized Ratio (INR) is a [facility] monitoring tool for patients who are stable on oral anticoagulant therapy. An INR of 2.0-3.0 is suggested for deep vein thrombosis/pulmonary embolism. Specimen Blood Performing Organization Address City/State/[facility] Phon e Number [facility] DEPARTMENT OF PATHOLOGY AND [address] [place], [place] [address] [facility] [address] [place] [address] Comprehensive metabolic panel (08/28/2019 12:48 PM CDT) Sodium 124 (L) 135 - 148 [facility] mEq/L [facility] Potassium 5.9 (H) 3.5 - 5.0 [facility] mEq/L [facility] Chloride 98 98 - 112 [facility] mEq/L [facility] CO2 16 (L) 24 - 31 mEq/L [facility] Anion gap 10@ANIO 7 - 15 mEq/L [facility] BUN 30 (H) 8 - 23 mg/dL [facility] Creatinine 1.53 (H) 0.70 - 1.20 [facility] mg/dL [facility] Glucose 103 (H) 65 - 99 mg/dL [facility] Calcium 9.1 8.8 - 10.2 [facility] mg/dL [facility] Protein 6.7 6.3 - 8.3 [facility] Comment: g/dL [facility] 4.6-7.0 g/dL 1 week 4.4-7.6 g/dL 7 months-1year 5.1-7.3 g/dL 1-2 years 5.6-7.5 g/dL >3 years 6.0-8.0 g/dL 18-150 6.3-8.3 g/dL Albumin 3.2 (L) 3.5 - 5.0 [facility] g/dL [facility] A/G ratio 0.9 0.7 - 3.8 [facility] Alkaline phosphatase 111 40 - 129 U/L [facility] AST 32 10 - 50 U/L [facility] ALT 30 5 - 50 U/L [facility] Total bilirubin 0.5 0.0 - 1.2 [facility] mg/dL HOSPITAL Specimen Blood Performing Organization Address City/State/ZIP Code Phon e Number [facility] DEPARTMENT OF PATHOLOGY AND [address] [place], [place] [address] [facility] [address] [place] [address] after 12/31/2018 Insurance Payer Benefit Plan / Subscriber ID Effective Dates Phone Addre ss Type Group MEDICARE MEDICARE PART A [id number] 2003-Present [facility] [place] [place] Medicare AND B AARP AARP SUPPLEMENT [id number] 2017-Present Commercial Advance Directives For more information, please contact: [phone] Type Date Recorded 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
--- OUTSIDE RECORDS SUMMARY | 2020-01-01 07:45 | XMS REPORT | Clinical Summary ---
:1940 Author Organization [facility] Address [address] [place] [address] Care Team Providers Name Role Phone Sue Hicks Primary Care Provider Allergies No Known Allergies Medications Medication Sig Dispensed Refills Start Date End Date Status aspirin 81 MG Take 1 tablet 0 Ac tive chewable tablet by mouth. home insulin pump Inject 0 Ac tive Misc subcutaneousl y. cycloSPORINE Apply to 0 Active (RESTASIS) 0.05 % eye(s). ophthalmic emulsion BIOTIN ORAL Take 10,000 0 Active mcg by mouth. bumetanide (BUMEX) Take 2 mg by 0 11/04/2019 02 Active 1 MG tablet mouth 2 (two) 1 times daily . colesevelam Take 6 0 Active (WELCHOL) 625 mg tablets by tablet mouth. cyanocobalamin, Take 2 0 Acti ve vitamin B-12, tablets by (VITAMIN B-12) 1000 mouth . MCG tablet escitalopram Take 10 mg by 0 05/04/2016 Ac tive oxalate (LEXAPRO) mouth. 10 MG tablet gabapentin Take 1,200 mg 0 03/20/2019 Acti ve (NEURONTIN) 300 MG by mouth. capsule ferrous gluconate Take 256 mg 0 Active 256 mg (28 mg iron) by mouth. Tab icosapent ethyL 4 tablets. 0 07/07/2016 Ac tive (VASCEPA) 1 gram Cap levothyroxine Take 1 tablet 0 05/09/2016 A ctive (SYNTHROID, by mouth. LEVOTHROID) 100 MCG tablet omeprazole Take 20 mg by 0 07/09/2016 Acti ve (PRILOSEC) 20 MG mouth. capsule spironolactone 50 mg. 0 07/07/2016 Acti ve (ALDACTONE) 25 MG tablet ascorbic acid, Take 1,000 mg 0 A ctive vitamin C, (VITAMIN by mouth C) 1000 MG tablet daily. amLODIPine Take 10 mg by 0 Activ e (NORVASC) 10 MG mouth daily. tablet potassium chloride Take 40 mEq 0 Active (KLOR-CON) 10 MEQ by mouth 2 CR tablet (two) times daily. telmisartan Take 40 mg by 0 Acti ve (MICARDIS) 40 MG mouth daily. tablet saw palmetto 160 MG Take 4 0 Discontinued capsule capsules by 0 (Stop Ta caesar at mouth. Discharge) telmisartan Take 40 mg by 0 Disc ontinued (MICARDIS) 40 MG mouth daily. 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 Hyperlipidemia 12/26/2015 Encounters Date Type Specialty Care Team Description 11/30/2019 - Hospital General [facility], Acute bl ood loss anemia; 12/01/2019 Encounter Medicine MD Donovan Atherosclerosis of [place] coronary arter y of [place] heart without angina pectoris; Leonel Chronic diastol ic heart failure ([facility]); Jyoti Chronic renal i nsufficiency, stage III (moderate) ([facility]); MD Kala Essential hypertension; Win Gastroesophagea l reflux disease without esophagitis; MD Eddie Hyperlipidemia, unspecified hyperlipidemia type; 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; Iron deficiency ; Lower GI bleed; Type 2 diabetes mellitus with stage 3 chronic kidney disease, with long-term current use of insulin ([facility]); Type 2 diabetes mellitus with insulin therapy ([facility]) 11/30/2019 Travel after 12/31/2018 Family History Medical History Relation Name Comments Diabetes Brother Heart failure Brother Aneurysm Father Relation Name Status Comments Brother Father Social History Tobacco Use Types Packs/Day Years Used Date Never Smoker Smokeless Tobacco: Never Used Sex Assigned at Date Recorded Not on file Last Filed Vital Signs Vital Sign Reading Time Taken Comments Blood Pressure 126/59 12/01/2019 11:36 AM CDT Pulse 64 12/01/2019 11:36 AM CDT Temperature 36.4 C (97.5 F) 12/01/2019 11:36 AM CDT Respiratory Rate 17 12/01/2019 11:36 AM CDT Oxygen Saturation 96% 12/01/2019 11:36 AM CDT Inhaled Oxygen Concentration - - Weight 102.8 kg (226 lb 11.2 oz) 11/30/2019 5:29 AM CDT Height 182.9 cm (6') 11/30/2019 5:29 AM CDT Body Mass Index 30.75 11/30/2019 5:29 AM CDT Plan of Treatment Health Maintenance Due Date Last Done Comments DIABETIC EYE EXAM 1950 DIABETIC FOOT EXAM 1950 PNEUMOCOCCAL 65+ YRS (1 of 1 - [id number] PCV13) 2003 MEDICARE ANNUAL WELLNESS (YEAR 2 or FIRST YEAR if no 04/12/2004 IPPE) INFLUENZA VACCINE (#1) 2019 HEMOGLOBIN A1C 11/30/2019 URINE MICROALBUMIN 08/26/2020 08/27/2019 Procedures Procedure Name Priority Date/Time Associated Comments Diagnosis RHYTHM STRIP - SCAN 12/03/2019 10:10 AM CDT TRANSFUSION SERVICE 12/01/2019 6:30 REPORT - SCAN PM CDT POCT-GLUCOSE METER Routine 12/01/2019 11:40 Resul ts for this AM CDT procedure are i n the results section. CALCIUM, IONIZED Routine 12/01/2019 6:06 Results for this AM CDT procedure are i n the results section. MAGNESIUM Routine 12/01/2019 6:06 Results for this AM CDT procedure are i n the results section. PHOSPHORUS Routine 12/01/2019 6:06 Results for this AM CDT procedure are i n the results section. BASIC METABOLIC PANEL Routine 12/01/2019 6:06 Re sults for this (7) AM CDT procedure are i n the results section. CBC (HEMOGRAM ONLY) Routine 12/01/2019 6:06 Resu lts for this AM CDT procedure are i n the results section. POCT-GLUCOSE METER Routine 12/01/2019 5:55 Resul ts for this AM CDT procedure are i n the results section. POCT-GLUCOSE METER Routine 11/30/2019 9:35 Resul ts for this PM CDT procedure are i n the results section. HEMOGLOBIN AND Routine 11/30/2019 8:15 Results f or this HEMATOCRIT PM CDT procedure are i n the results section. POCT-GLUCOSE METER Routine 11/30/2019 4:44 Resul ts for this PM CDT procedure are i n the results section. HEMOGLOBIN AND Routine 11/30/2019 12:40 Results f or this HEMATOCRIT PM CDT procedure are i n the results section. ABORH, MANUAL STAT 11/30/2019 6:36 Results fo r this AM CDT procedure are i n the results section. POCT-GLUCOSE METER Routine 11/30/2019 6:19 Resul ts for this AM CDT procedure are i n the results section. URINALYSIS W/ REFLEX Routine 11/30/2019 5:57 Res ults for this URINE CULTURE AM CDT procedure are in the results section. URINE CULTURE Routine 11/30/2019 5:57 Results fo r this AM CDT procedure are i n the results section. CBC W/PLT COUNT & AUTO STAT 11/30/2019 5:54 R esults for this DIFFERENTIAL AM CDT procedure are i n the results section. TYPE AND SCREEN, STAT 11/30/2019 5:54 Results for this AUTOMATED AM CDT procedure are i n the results section. B-TYPE NATRIURETIC STAT 11/30/2019 5:54 Resul ts for this FACTOR (BNP) AM CDT procedure are i n the results section. FERRITIN STAT 11/30/2019 5:54 Results for this AM CDT procedure are i n the results section. IRON, TIBC, % SAT. STAT 11/30/2019 5:54 Resul ts for this (WITHOUT FERRITIN) AM CDT procedure are in the results section. PHOSPHORUS STAT 11/30/2019 5:54 Results for this AM CDT procedure are i n the results section. MAGNESIUM STAT 11/30/2019 5:54 Results for this AM CDT procedure are i n the results section. COMPREHENSIVE STAT 11/30/2019 5:54 Results fo r this METABOLIC PANEL AM CDT procedure ar e in the results section. PROTHROMBIN TIME/INR STAT 11/30/2019 5:54 Res ults for this AM CDT procedure are i n the results section. CBC W/PLT COUNT & AUTO STAT 11/30/2019 5:54 R esults for this DIFFERENTIAL AM CDT procedure are i n the results section. after 12/31/2018 Results RHYTHM STRIP - SCAN (12/03/2019 10:10 AM CDT) Narrative Performed At This result has an attachment that is no t available. TRANSFUSION SERVICE REPORT - SCAN (12/01/2019 6:30 PM CDT) Narrative Performed At This result has an attachment that is no t available. POC-Glucose meter (12/01/2019 11:40 AM CDT)Only the most recent of5 results within the time period is included. POC-Glucose Meter 110Comment: : 70 - 110 mg/dL [facility] TESTED AT [address], [address]: Manufacturing Recruiter/Technici an ID = [id number] for PRINCESS LEYDI Specimen Blood Performing Organization Address City/[facility] Phone Number [address] [phone] [place] Calcium, Ionized (12/01/2019 6:06 AM CDT) Pathologist Sig critical [facility] hospital Calcium, Ion 1.08 (L) 1.12 - 1.27 mmol/L [facility] pH, Blood 7.42 [facility] Specimen Blood Performing Organization Address City/[facility] Phone Number [address] [address] [place] CBC (Hemogram only) (12/01/2019 6:06 AM CDT) Pathologist Sig nature WBC 6.1 3.5 - 10.5 K/L [facility] RBC 3.05 (L) 4.63 - 6.08 M/L [facility] Hemoglobin 7.9 (L) 13.7 - 17.5 GM/DL [facility] Hematocrit 25.7 (L) 40.1 - 51.0 % [facility] MCV 84.3 79.0 - 92.2 fL [facility] MCH 25.9 25.7 - 32.2 pg [facility] MCHC 30.7 (L) 32.3 - 36.5 GM/DL [facility] RDW 18.3 (H) 11.6 - 14.4 % [facility] Platelets 224 150 - 450 K/CU MM [facility] MPV 10.6 9.4 - 12.4 fL [facility] nRBC 0 0 - 0 /100 WBC [facility] Specimen Blood Performing Organization Address [facility] Phone Number [address] [address] CENTER Phosphorus (12/01/2019 6:06 AM CDT)Only the most recent of2 resultswithin the time period is included. Pathologist Sig nature Phosphorus 3.2 2.3 - 4.7 mg/dL [facility] Specimen Blood Narrative Performed At Manufacturing Recruiter ID - [facility] Performing Organization Address [facility] Phone Number [address] [address] CENTER Magnesium (12/01/2019 6:06 AM CDT)Only the most recent of2 resultswithin the time period is included. Pathologist Sig nature Magnesium 1.8 1.6 - 2.6 mg/dL [facility] Specimen Blood Narrative Performed At Manufacturing Recruiter ID - [facility] Performing Organization Address City/[facility] Phone Number [address] [address] CENTER Basic Metabolic Panel (12/01/2019 6:06 AM CDT) Sodium 135 (L) 136 - 145 meq/L [facility] Potassium 3.3 (L) 3.5 - 5.1 meq/L [facility] Chloride 102 98 - 107 meq/L [facility] CO2 26 22 - 29 meq/L [facility] BUN 14 7 - 21 mg/dL [facility] Creatinine 1.00 0.57 - 1.25 [facility] mg/dL [facility] Glucose 95 70 - 105 mg/dL [facility] Calcium 8.3 (L) 8.4 - 10.2 [facility] mg/dL [facility] EGFR 72Comment: ESTIMATED mL/min/1.73 sq [facility] GFR IS NOT m [facility] ACCURATE [place] CREATININE CLEARANCE IN PREDICTING GLOMERULAR FILTRATION RATE. ESTIMATED GFR IS NOT APPLICABLE FOR DIALYSIS PATIENTS. Specimen Blood Narrative Performed At Manufacturing Recruiter ID - EDASI [facility] Performing Organization Address City/[facility]/Zipcode Phone Number [facility] [address] [place] [address] CENTER Hemoglobin and hematocrit (11/30/2019 8:15 PM CDT)Only the most recent of2 resultswithin the time period is included. Pathologist Sig nature Hemoglobin 7.8 (L) 13.7 - 17.5 GM/DL [facility] Hematocrit 25.3 (L) 40.1 - 51.0 % [facility] Specimen Blood Narrative Performed At Manufacturing Recruiter ID - [id number] [facility] Performing Organization Address City/[facility]/Zipcode Phone Number [facility] [address] [place] [address] CENTER ABORH, manual (11/30/2019 6:36 AM CDT) Pathologist Sig nature ABO Grouping A [facility] DICAL [place] Rh Factor POS [facility] CENTER Specimen Blood Performing Organization Address City/[facility]/Zipcode Phone Number [facility] [address] [place] [address] Urinalysis w/Microscopic + Reflex to Culture (11/30/2019 5:57 AM CDT) Color, UA Yellow [facility] Clarity, UA Hazy [facility] Specific [place], 1.031 1.001 - 1.035 [facility] pH, UA 5.5 5.0 - 8.0 [facility] Protein, UA 20 mg/dL (A) Negative [facility] Glucose, UA Negative Negative [facility] Ketones, UA Trace (A) Negative [facility] Bilirubin, UA Negative Negative [facility] Blood, UA Negative Negative [facility] Nitrite, UA Negative Negative [facility] Leukocytes, UA Large (A) Negative [facility] Urobilinogen, UA 0.2 0.2 - 1.0 mg/dL [facility] RBC, UA 26 /HPF [facility] WBC, UA 265 /HPF [facility] Bacteria, UA Occasional [facility] Mucus Rare [facility] Hyaline Casts, UA 2 /LPF [facility] Specimen Source [facility] Specimen Urine Narrative Performed At Manufacturing Recruiter ID - [auto] [facility] Manufacturing Recruiter ID - tech Performing Organization Address City/[facility]/Zipcode Phone Number [facility] [address] [place] [address] CENTER Urine culture (11/30/2019 5:57 AM CDT) Pathologist Sig nature Result No growth [facility] Specimen Urine - Urine (substance) Performing Organization Address [facility]/Zipcode Phone Number [facility] [address] [place] [address] CENTER Type and screen, automated (11/30/2019 5:54 AM CDT) Pathologist Sig nature ABO/RH AUTOMATED A POSITIVE [facility] (BEAKER) [facility] Ab Scrn NEGATIVE [facility] Specimen Blood Performing Organization Address City/[facility]/Zipcode Phone Number [facility] [address] [place] [address] Iron, TIBC, % sat. (without ferritin) (11/30/2019 5:54 AM CDT) Pathologist Sig nature Iron 49.0 40.0 - 160.0 [facility] ug/dL [facility] TIBC 346 250 - 450 ug/dL [facility] Iron % Saturation 14 (L) 20 - 55 % [facility] Specimen Blood Narrative Performed At Manufacturing Recruiter ID - ANAASI [facility] Performing Organization Address [facility] Phone Number [address] [address] CENTER CBC with platelet count + automated diff (11/30/2019 5:54 AM CDT) Pathologist Sig nature WBC 8.5 3.5 - 10.5 [facility] K/L [facility] RBC 3.46 (L) 4.63 - 6.08 [facility] M/L [facility] Hemoglobin 8.8 (L) 13.7 - 17.5 [facility] GM/DL [facility] Hematocrit 28.9 (L) 40.1 - 51.0 % [facility] MCV 83.5 79.0 - 92.2 fL [facility] MCH 25.4 (L) 25.7 - 32.2 pg [facility] MCHC 30.4 (L) 32.3 - 36.5 [facility] GM/DL [facility] RDW 18.1 (H) 11.6 - 14.4 % [facility] Platelets 258 150 - 450 K/CU [facility] MPV 9.8 9.4 - 12.4 fL [facility] nRBC 0 0 - 0 /100 WBC [facility] % Neutros 70 % [facility] % Lymphs 14 % [facility] % Monos 12 % [facility] % Eos 3 % [facility] % Baso 1 % [facility] # Neutros 5.98 (H) 1.78 - 5.38 [facility] # Lymphs 1.15 (L) 1.32 - 3.57 [facility] # Monos 1.02 (H) 0.30 - 0.82 [facility] # Eos 0.29 0.04 - 0.54 [facility] # Baso 0.07 0.01 - 0.08 [facility] Immature 0 0 - 1 % [facility] Granulocytes-Relative [facility] Specimen Blood Performing Organization Address City/State/Zipcode Phone Number [facility] [address] [place] [address] CENTER Prothrombin time/INR (11/30/2019 5:54 AM CDT) Pathologist Sig nature Protime 15.7 (H) 11.9 - 14.2 seconds [facility] INR 1.28 <=5.90 [facility] Specimen Blood Narrative Performed At Effective 08/06/2018: PT Reference Range [facility] Change New: 11.9-14.2 Previous: 11.7-14.7 RECOMMENDED COUMADIN/WARFARIN INR THERAPY RANGES STANDARD DOSE: 2.0-3.0 Includes: PROPHYLAXIS for venous thrombosis, systemic embolization; TREATMENT for venous thrombosis and/or pulmonary embolus. HIGH RISK: Target INR is 2.5-3.5 for patients wiht mechanical heart valves. Performing Organization Address City/[facility] Phone Number [address] [address] CENTER B-type Natriuretic Factor (BNP) (11/30/2019 5:54 AM CDT) Pathologist Sig nature BNP 257 (H) 0 - 100 pg/mL [facility] Specimen Blood Narrative Performed At Manufacturing Recruiter ID - DB [facility] Performing Organization Address [facility] Phone Number [address] [address] CENTER Ferritin (11/30/2019 5:54 AM CDT) Pathologist Sig nature Ferritin 27.83 5.00 - 275.00 ng/mL [facility] Specimen Blood Narrative Performed At Manufacturing Recruiter ID - EDASI [facility] Performing Organization Address [facility] Phone Number [address] [address] CENTER Comprehensive metabolic panel (11/30/2019 5:54 AM CDT) Protein, Total 6.0 6.0 - 8.3 [facility] gm/dL [facility] Albumin 3.3 (L) 3.5 - 5.0 [facility] g/dL [facility] Alkaline 101 40 - 150 U/L [facility] Phosphatase [facility] Total Bilirubin 1.2 0.2 - 1.2 [facility] mg/dL [facility] Sodium 137 136 - 145 [facility] meq/L [facility] Potassium 3.6 3.5 - 5.1 [facility] meq/L [facility] Chloride 102 98 - 107 [facility] meq/L [facility] CO2 22 22 - 29 meq/L [facility] BUN 17 7 - 21 mg/dL [facility] Creatinine 1.18 0.57 - 1.25 [facility] mg/dL [facility] Glucose 110 (H) 70 - 105 [facility] mg/dL [facility] Calcium 8.0 (L) 8.4 - 10.2 [facility] mg/dL [facility] AST 22 5 - 34 U/L [facility] ALT 17 6 - 55 U/L [facility] EGFR 59Comment: mL/min/1.73 [facility] ESTIMATED GFR IS sq [facility] NOT ACCURATE [facility]ENTER CREATININE CLEARANCE IN PREDICTING GLOMERULAR FILTRATION RATE. ESTIMATED GFR IS NOT APPLICABLE FOR DIALYSIS PATIENTS. Specimen Blood Narrative Performed At Manufacturing Recruiter ID - DB [facility] Performing Organization Address City/State/Zipcode Phone Number [facility] [address] [place] [address] CENTER after 12/31/2018 Insurance Payer Benefit Plan / Subscriber ID Effective Dates Phone Addre ss Type Group MEDICARE MEDICARE A B [id number] 2003-Present Medicare [facility] [id number] 2019-Present [employer] SUPPLEMENT/[facility] Advance Directives For more information, please contact: [phone] Code Status Date Activated Date Inactivated Comments Full Code 11/30/2019 5:21 AM 12/01/2019 7:01 PM This code status was determined by: Patient
--- OUTSIDE RECORDS SUMMARY | 2020-01-01 07:47 | XMS REPORT | Continuity of Care Document ---
:[address] [facility] t Address [address] [place] [address] Care Team Providers Name Role Phone Sue Hicks Primary Care Physician Juan REDD, R. Attending Clinician Kailey MALAVE Attending Clinician Unavailable Provider Attending Clinician Unavailable Magali REDD Attending Clinician Lu Castaneda MD Attending Clinician Win REDD Attending Clinician MAGALI Attending Clinician Unavailable Lisa Lawrence MA Attending Clinician Unavailable Octavio REDD, T Attending Clinician JUAN Admitting Clinician Unavailable LU CASTANEDA Admitting Clinician Unavailable Payers Payer Name Policy Type Policy Effective Date Expiration Date Sour ce Number MEDICAREMEDICARE PART [id number] 2003 Kareem Bueno AND 00:00:00 [facility] [id number] 2003[place] [id number] 2017 [place] [id number] 00:00:00 Met geronimo 2017-[facility] MEDICAREMEDICARE A [id number] [address] [facility] [id number] 2003- 00:00:00 [id number] [address] [facility] SUPPLEMENT/INDIVIDUAL 00:00:00 - M edical [id number]-PresentMedig ap Problems Condition Condition Condition Status Onset Resolution Last Treating Co mments Source Name Details Category Date Date Treatment Clinician Date Lower GI Lower GI Disease Active [facility]29 [facility] - [facility] Medical [facility] Center Acute Acute Disease Active [facility] blood loss blood loss 11-29 [facility] k[facility] - anemia anemia 00:00: Medical [place] Chronic Chronic Disease Active [facility] diastolic diastolic 10-08 [facility] - heart heart 00:00: Medical failure failure 00 Center Hypothyroi Hypothyroi Disease Active [facility] dism due dism due 09-11 [facility] - to defect to defect 00:00: Medi naima in thyroid in thyroid 00 Ce nter hormone hormone synthesis synthesis Iron Iron Disease Active [facility] deficiency deficiency 09-11 [facility] - 00:00: Medical 00 Center Anemia of Anemia of Disease Active [facility] chronic chronic 6 [facility] - disease disease 00:00: Medical 00 Center Abnormal Abnormal Disease Active [place] stress stress 6 Methodi test test 00:00: st 00 History of History of Disease Active [facility] [place] coronary coronary 1 Method i artery artery 00:00: st stent stent 00 placement placement Essential Essential Disease Active [facility] hypertensi hypertensi 11-07 [facility] - on on 00:00: Medical 00 Center 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 [facility] - mellitus mellitus 00:00: Medica l with with 00 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 Chronic Chronic Disease Active [facility] renal renal 11-04 [facility] - insufficie insufficie 00:00: Me dical ncy, stage ncy, stage 00 Ce nter III III (moderate) (moderate) Gastroesop Gastroesop Disease Active [facility] hageal hageal 11-04 [facility] - reflux reflux 00:00: Medical disease disease 00 Center Chest pain Chest pain Disease Active [place] 7-23 Methodi 00:00: st 00 SOB SOB Disease Active [place] (shortness (shortness 7-23 Me thodi of breath) of breath) 00:00: st 00 Coronary Coronary Disease Active [place] artery artery 502 Methodi disease disease 00:00: st involving involving 00 [place] coronary coronary artery of artery of [place] heart heart without without angina angina pectoris pectoris Hyperlipid Hyperlipid Disease Active 2015-03 [place] emia emia 0-17 Methodi 00:00: st 00 Essential Essential Disease Active 2015-03 [facility] hypertensi hypertensi 0-17 Me thodi on on 00:00: st 00 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 Family History Family Member Diagnosis Comments Start Date Stop Date Source Natural brother Diabetes [facility] Natural brother Heart failure [facility] Natural brother CABG/Stent [facility] Natural brother Heart attack [facility] Natural father Aneurysm [facility] Social History Social Habit Start Date Stop Date Quantity Comments Source [facility] to Not sure [place] Metho dist SARS-CoV-2 (event) Tobacco use and 2019-12-31 2019-12-31 [facility] 00:00:00 00:00:00 Alcohol intake 2019-12-31 2019-12-31 Current [facility] thodist 00:00:00 00:00:00 non-drinker of alcohol (finding) Smoking Status Start Date Stop Date Source Never smoker [place] Methodis t Medications Ordered Filled Start Stop Current Ordering Indication Dosage Frequency Signature Comments Components Source Medication Medication Date Date Medication? Clinician (SIG) Name Name colesevelam 2019-03 Yes 1875mg Take 1,875 [facility] (WELCHOL) 0-21 mg by Methodi 625 mg 15:24: mouth st tablet 08 daily. Taking 6 tablet in the am BIOTIN ORAL 2019-03 Yes [id number] QD Take Yves ston 0-21 15,000 mcg Methodi 15:24: by mouth st 08 daily. BUMETanide 2019-03 Yes 2mg Q.5D Take 2 mg [place] (BUMEX) 1 0-21 by mouth 2 Meth jesica MG tablet 15:24: (two) st 08 times a day. potassium 2020- Yes 40meq Q.5D Take 40 [place] chloride 0-21 mEq by Methodi (MICRO-K) 15:24: mouth 2 st 10 MEQ CR 08 (two) capsule times a day. cycloSPORIN 2019-03 Yes 1[drp] Q.5D Administer Franks E 0-21 1 drop to Methodi (RESTASIS) 15:24: both eyes st 0.05 % 08 2 (two) ophthalmic times a emulsion day. INSULIN 2019-03 Yes Inject Franks SUBCUTANEOU 0-21 under the Met hodi S PUMP, 15:24: skin st HUMALOG, 08 continuous 100 ly. 150 UNITS/ML units INSULIN depending PUMP on blood INFUSION glucose (HumaLOG) Via insulin pump b complex 2019-03 Yes 1{capsu QD Take 1 Y[facility] vitamins 0-21 le} capsule by Metho di capsule 15:24: mouth st 08 daily. cholecalcif 2019-03 Yes 2000U QD Take 2,000 Franks contreras, 0-21 Units by Methodi vitamin D3, 15:24: mouth st 50 mcg 08 daily. (2,000 unit) capsule capsule ascorbic 2019-03 Yes 1000mg QD Take 1,000 [place] acid, 0-21 mg by Methodi vitamin C, 15:24: mouth st (vitamin C) 08 daily. 1000 MG tablet ferrous 2019-03 Yes 325mg QD Take 325 [place] sulfate 325 0-21 mg by Methodi (65 FE) MG 15:24: mouth st tablet 08 daily with breakfast. calcium 2019-03 Yes 1000mg QD Take 1,000 [place] carbonate 0-21 mg by Methodi (CALCIUM 15:24: mouth st 500 ORAL) 08 daily. gummies amLODIPine 2019-03 Yes 10mg QD Take 10 mg [place] (NORVASC) 0-21 by mouth Method i 10 mg 15:24: daily. st tablet 08 aspirin 2019-03- Yes 81mg QD Take 1 [facility] (ECOTRIN) 0-21 -19 tablet (81 Met hodi 81 MG 00:00: 23:59 mg total) st enteric 00 :00 by mouth coated daily for tablet 90 days. atorvastati 2019-03- Yes 40mg QD Take 1 Y[facility] n (LIPITOR) 0-21 -19 tablet (40 M ethodi 40 mg 00:00: 23:59 mg total) st tablet 00 :00 by mouth daily for 90 days. clopidogreL 2019-03- Yes 75mg QD Take 1 [facility] (PLAVIX) 75 0-21 -19 tablet (75 M ethodi mg tablet 00:00: 23:59 mg total) st 00 :00 by mouth daily for 90 days. aspirin 2019-03- No 81mg QD Take 81 mg Y[facility] ston (ECOTRIN) 0-08 10-08 by mouth Metho di 81 MG 15:02: 00:[address] enteric 33 :00 coated tablet aspirin 2019-03- No 81mg QD Take 1 [facility] (ECOTRIN) 0-08 -21 tablet (81 Met hodi 81 MG 00:00: 00:00 mg total) st enteric 00 :00 by mouth coated daily for tablet 90 days. clopidogreL 2019-03- No 75mg QD Take 1 [facility] (PLAVIX) 75 0-08 -21 tablet (75 M ethodi mg tablet 00:00: 00:00 mg total) st 00 :00 by mouth daily for 90 days. atorvastati 2019-03- No 40mg QD Take 1 Yves ston n (LIPITOR) 0-08 -21 tablet (40 M ethodi 40 mg 00:00: 00:00 mg total) st tablet 00 :00 by mouth daily for 90 days. calcium 2019-03- No 1{tbl} QD Take 1 [place] crb,cit-D3- 0-07 10-07 tablet by Mt thodi [id number] 09:15: 00:[address] (CITRACAL + 29 :00 daily. BONE DENSITY) 300-200-13. 5 mg-unit-mg tablet aspirin 81 Yes 1{tbl} Take [address] MG chewable 9-22 tablet by Arabella es - tablet 17:00: mouth. [place] [id number] Center home Yes Inject [facility] insulin 9-22 subcutaneo [facility]ukes - pump Misc 17:00: usly. [place] [id number] Center cycloSPORIN 2020-0 Yes Apply to [facility] E 9-22 eye(s). [facility]ukes - (RESTASIS) 17:00: Medical 0.05 % 59 Center ophthalmic emulsion BIOTIN ORAL 2019-0 Yes [id number] Take [facility] 9-22 10,000 mcg [facility]ukes - 17:00: by mouth. Medical 59 Center colesevelam 2020-0 Yes 6{tbl} Take [address] (WELCHOL) 9-22 tablets by Luke s - 625 mg 17:00: mouth. Medical tablet 59 Center cyanocobala 2019-0 Yes 2{tbl} Take [address] min, 9-22 tablets by [facility] - vitamin 17:00: mouth . Medical B-12, 59 Center (VITAMIN B-12) 1000 MCG tablet ferrous 2019-0 Yes 256mg Take 256 [facility] gluconate 9-22 mg by [facility] - 256 mg (28 17:00: mouth. Medic al mg iron) 59 Center Tab ascorbic 0 Yes 1000mg QD Take 1,[address] acid, 9-22 mg by [facility]ukes - vitamin C, 17:00: mouth Medica l (VITAMIN C) 59 daily. [place] 1000 MG tablet amLODIPine Yes 10mg QD Take [address] (NORVASC) 9-22 by mouth [facility]ukes - 10 MG 17:00: daily. Medical tablet 59 [place] potassium Yes 40meq Q.5D Take [address] chloride 9-22 mEq by [facility]ukes - (KLOR-CON) 17:00: mouth 2 Medi naima 10 MEQ CR 59 (two) Center tablet times daily. telmisartan Yes 40mg QD Take [address] (MICARDIS) 9- by mouth [facility]ukes - 40 MG 17:00: daily. Medical tablet 59 [place] saw 2019- No 4{capsu Take [address] palmetto 11-30 le} capsules [facility]ukes - 160 MG 14:10: 00:00 by mouth. Medic al capsule 43 :00 [place] telmisartan 2020- No 40mg QD Take [address] (MICARDIS) 11-29 by mouth Luke s - 40 MG 05:46: 00:00 daily. Medical tablet 37 :00 [place] bumetanide 2020- Yes 2mg Q.5D Take [address] (BUMEX) 1 8- 08-26 by mouth 2 Arabella es - MG tablet 00:00: 23:59 (two) Medica l 00 :00 times Center daily . cyanocobala 2019- No 1mL 1 mL. [place] min 1,000 6-25 06-25 Methodi mcg/mL 11:11: 00:00 st injection 39 :00 amLODIPine 2019- No 10mg Q.5D Take 1 [place] (NORVASC) 622 10-21 tablet (10 Met hodi 10 mg 00:00: 00:00 mg total) st tablet 00 :00 by mouth 2 (two) times a day. gabapentin Yes 1200mg Take 1,[address] (NEURONTIN) 1-10 mg by [facility]ukes - 300 MG 00:00: mouth. Medical capsule 00 [place] gabapentin Yes 1200mg Q.5D Take 1,200 [facility] (NEURONTIN) 1-10 mg by Methodi 300 mg 00:00: mouth 2 st capsule 00 (two) times a day. omeprazole Yes 20mg Take [address] (PRILOSEC) 5- by mouth. Luke s - 20 MG 00:00: Medical capsule 00 [place] omeprazole Yes 20mg QD Take 20 mg [place] (PriLOSEC) 5 by mouth Metho di 20 MG 00:00: daily. st capsule 00 Daughter Amarilis reported medication s icosapent Yes 4{tbl} [address] ethyL 4- [facility]ukes - (VASCEPA) 1 00:00: Medica l gram Cap 00 [place] spironolact Yes 50mg [address] one -29 [facility] - (ALDACTONE) 00:00: Medica l 25 MG 00 Center tablet VASCEPA 1 Yes 4g QD Take 4 g [place] gram -29 by mouth Methodi capsule 00:00: daily. st 00 Taking 4 grams in the am spironolact 2019- No 50mg Q.5D 50 mg 2 [place] one 4-29 10-07 (two) Methodi (ALDACTONE) 00:00: 00:[address] 25 MG 00 :00 day. tablet hydroCHLORO 2019- No 25mg Q.5D 25 mg 2 [place] thiazide 07-07 (two) Methodi (HYDRODIURI 00:00: 00:[address] L) 25 MG 00 :00 day. tablet amLODIPine 2020- No QD daily. Leo carvalho (NORVASC) 06-12 Methodi 10 mg 00:00: 00:00 st tablet 00 :00 levothyroxi Yes 1{tbl} Take [address] ne - tablet by [facility]ukes - (SYNTHROID, 00:00: mouth. Medi naima LEVOTHROID) 00 Center 100 MCG tablet SYNTHROID Yes 100ug QD Take 100 [address] 100 mcg 3-01 mcg by Methodi tablet 00:00: mouth st 00 daily. telmisartan 2020- No [place] (MICARDIS) 05-09 Methodi 80 MG 00:00: 00:00 st tablet 00 :00 escitalopra Yes 10mg Take 10 mg CHI m oxalate 2-24 by mouth. [facility]ukes - (LEXAPRO) 00:00: Medical 10 MG 00 Center tablet escitalopra Yes 10mg QD Take 10 mg [facility]anks m (LEXAPRO) 2-24 by mouth Meth jesica 10 MG 00:00: daily. st tablet 00 HUMALOG 100 2020- No [place] on unit/mL 04-16 Methodi injection 00:00: 00:00 st 00 :00 Vital Signs Vital Name Observation Time Observation Value Comments Source Heart rate 2019-12-30 15:00:00 63 /min [place] Respiratory rate 2019-12-30 15:00:00 12 /min [place] Oxygen saturation in 2019-12-30 15:00:00 98 /min [place] Arterial blood by Pulse oximetry Systolic blood 2019-12-30 14:30:00 115 mm[Hg] Dari n [facility] pressure Diastolic blood 2019-12-30 14:30:00 54 mm[Hg] [place] on [facility] pressure Body temperature 2019-12-30 10:20:00 36.06 Roslyn [place] Body height 2019-12-30 07:42:00 182.9 cm [place] Body weight 2019-12-30 07:42:00 104.015 kg [place] BMI 2019-12-30 07:42:00 31.10 kg/m2 [place] Systolic blood 2019-12-01 11:36:00 126 mm[Hg] [facility] Diastolic blood 2019-12-01 11:36:00 59 mm[Hg] [facility] Heart rate 2019-12-01 11:36:00 64 /min [facility] Body temperature 2019-12-01 11:36:00 36.39 Roslyn [facility] Respiratory rate 2019-12-01 11:36:00 17 /min [facility] Oxygen saturation in 2019-12-01 11:36:00 96 /min [facility] Arterial blood by Medical Ce nter Pulse oximetry Body height 2019-11-30 05:29:00 182.9 cm [facility] Body weight 2019-11-30 05:29:00 102.83 kg [facility] BMI 2019-11-30 05:29:00 30.75 kg/m2 [facility] Procedures Procedure Date / Time Performing Clinician Source Performed POC GLUCOSE 2019-12-30 10:59:00 Caio Martinez Meth odist ECG PRE/POST OP 2019-12-30 10:47:40 Maxime Gamboa Met melist CV PCI 2019-12-30 09:58:40 Caio Martinez Meth odist ACTIVATED CLOTTING TIME 2019-12-30 08:46:00 Caio Martinez HC COMPLETE BLD COUNT 2019-12-30 08:22:00 Caio Martinez n [facility] W/AUTO DIFF SMEAR REVIEW 2019-12-30 08:22:00 Caio Martinez Meth odist ESTIMATED GFR 2019-12-30 08:21:00 Caio Martinez Meth odist POC PANEL 2019-12-30 08:21:00 Caio Martinez Meth odist POC GLUCOSE 2019-12-30 06:50:00 Caio Martinez Meth odist POC GLUCOSE 2019-12-17 15:29:00 Caio Martinez Meth odist ECG 12-LEAD 2019-12-17 15:08:43 Caio Martinez Meth odist CV PCI STENT 2019-12-17 14:53:55 Caio Martinez Meth odist ACTIVATED CLOTTING TIME 2019-12-17 14:21:00 Caio Martinez [facility] POC GLUCOSE 2019-12-17 11:40:00 Caio Martinez Meth odist TYPE AND SCREEN 2019-12-17 10:44:00 Maxime Gamboa Golden Met hodist HC COMPLETE BLD COUNT 2019-12-17 09:30:00 Caio Martinez n [facility] W/AUTO DIFF ESTIMATED GFR 2019-12-17 09:27:00 Caio Martinez Meth odist POC PANEL 2019-12-17 09:27:00 Caio Martinez Meth odist POC GLUCOSE 2019-12-17 08:44:00 Caio Martinez Meth odist ECG PRE/POST OP 2019-12-17 08:19:03 Caio Martinez odist RHYTHM STRIP - SCAN 2019-12-03 10:10:31 Provider, [facility] TRANSFUSION SERVICE 2019-12-01 18:30:59 Provider, [facility] REPORT - [facility] POCT-GLUCOSE METER 2019-12-01 11:40:00 Win [facility] CBC (HEMOGRAM ONLY) 2019-12-01 06:06:00 [facility] BASIC METABOLIC PANEL 2019-12-01 06:06:00 [facility] () [facility] PHOSPHORUS 2019-12-01 06:06:00 Leonel [facility] MAGNESIUM 2019-12-01 06:06:00 [facility] CALCIUM, IONIZED 2019-12-01 06:06:00 [facility] POCT-GLUCOSE METER 2019-12-01 05:55:00 Win [facility] POCT-GLUCOSE METER 2019-11-30 21:35:00 Win [facility] HEMOGLOBIN AND 2019-11-30 20:15:00 Leonel [facility] HEMATOCRIT [facility] POCT-GLUCOSE METER 2019-11-30 16:44:00 Win Eddie [facility] HEMOGLOBIN AND 2019-11-30 12:40:00 Leonel [facility] HEMATOCRIT [facility] ABORH, MANUAL 2019-11-30 06:36:00 Alida Crowe [facility] POCT-GLUCOSE METER 2019-11-30 06:19:00 [facility] URINE CULTURE 2019-11-30 05:57:00 [facility] URINALYSIS W/ REFLEX 2019-11-30 05:57:00 ChesterJyoti [facility] - URINE CULTURE [facility] PROTHROMBIN TIME/INR 2019-11-30 05:54:00 Leonel Jyoti [facility] COMPREHENSIVE METABOLIC 2019-11-30 05:54:00 LeonelJyoti I [facility] PANEL [facility] MAGNESIUM 2019-11-30 05:54:00 [facility] 2019-11-30 05:54:00 Chester [facility] IRON, TIBC, % SAT. 2019-11-30 05:54:[address] [facility] (WITHOUT FERRITIN) [facility]iere r FERRITIN 2019-11-30 05:54:00 [facility] B-TYPE NATRIURETIC 2019-11-30 05:54:00 [facility] FACTOR (BNP) [facility] TYPE AND SCREEN, 2019-11-30 05:54:00 Jyoti Castaneda [facility] - AUTOMATED [facility] CBC W/PLT COUNT & AUTO 2019-11-30 05:54:[address] [facility] DIFFERENTIAL [facility] POC GLUCOSE 2019-09-03 13:45:00 Caio Martinez CV SELECTIVE CORONARY 2019-09-03 13:18:58 Caio Martinez ANGIOGRAPHY ESTIMATED GFR 2019-09-03 11:43:00 Caio Martinez odist POC PANEL 2019-09-03 11:43:00 Caio Martinez odfreddy BASIC METABOLIC PANEL 2019-09-03 11:40:00 Caio Martinez [facility] ESTIMATED GFR 2019-09-03 11:40:00 Caio Martinez odfreddy POC GLUCOSE 2019-09-03 10:44:00 Caio Martinez odfreddy TTE COMPLETE, WO 2019-08-28 13:53:00 Caio Martinez, W DOPPLER ([id number]) COMPREHENSIVE METABOLIC 2019-08-28 12:48:00 Caio Martinez PANEL HC COMPLETE BLD COUNT 2019-08-28 12:48:00 Caio Martinez W/AUTO DIFF PROTHROMBIN TIME WITH 2019-08-28 12:48:00 Caio Martinez INR ESTIMATED GFR 2019-08-28 12:48:00 Caio Martinez odist ECG 12-LEAD 2019-08-28 11:24:35 Caio Martinez Plan of Care Planned Activity Planned Date Details Comments Source Future Scheduled 2020-08-26 Urine screening for [facility] - Test 00:00:00 [facility] (procedure) [facility] [code = 380365155] Future Scheduled 2019-11-[address] [facility] - Test 00:00:00 [facility] (procedure) [code = 15344804] Future Scheduled 2019-11-10 INFLUENZA VACCINE (#1) [facility] - Test 00:00:00 [code = INFLUENZA Medical Ce nter VACCINE (#1)] Future Scheduled 2019-10-10 INFLUENZA VACCINE [facility] Test 00:00:00 [code = INFLUENZA VACCINE] Future Scheduled 2004-04-[address] [facility] - Test 00:00:00 WELLNESS (YEAR 2 or Medical Center FIRST YEAR if no IPPE) [code = MEDICARE ANNUAL WELLNESS (YEAR 2 or FIRST YEAR if no IPPE)] Future Scheduled 2003 PNEUMOCOCCAL 65+ YRS [facility] - Test 00:00:00 (1 of 1 - Medical Center [id number] PCV13) [code = PNEUMOCOCCAL 65+ YRS (1 of 1 - [id number] PCV13)] Future Scheduled 2003 65+ PNEUMOCOCCAL [facility] Test 00:00:00 VACCINE (1 of 1 - PPSV23) [code = 65+ PNEUMOCOCCAL VACCINE (1 of 1 - PPSV23)] Future Scheduled 1988 SHINGLES VACCINES (#1) [place] [facility] Test 00:00:00 [code = SHINGLES VACCINES (#1)] Future Scheduled 1948 DIABETIC EYE EXAM [facility] - Test 00:00:00 [code = DIABETIC EYE Medical Center EXAM] Future Scheduled [address] Arabella es - Test 00:00:00 examination Medical Center (regime/therapy) [code = 513869742] Future Scheduled 1948 DIABETES: RETINAL EYE [place] [facility] Test 00:00:00 EXAM [code = DIABETES: RETINAL EYE EXAM] Future Scheduled 1948 DIABETIC FOOT EXAM [place] [facility] Test 00:00:00 [code = DIABETIC FOOT EXAM] Future Scheduled 1948 URINE MICROALBUMIN [place] [facility] Test 00:00:00 [code = URINE MICROALBUMIN] Encounters Start End Encounter Admission Attending Care Care Encounter Source Date/Time Date/Time Type Type Clinicians Facility Department ID 2019-12-30 2019-12-30 Outpatient [facility] [id number] [place] 00:00:00 00:00:00 CAIO [address] 2019-12-17 2019-12-17 [facility] [id number] [place] 00:00:00 00:00:00 CAIO [address] 2019-10-06 2019-10-06 [facility] [id number] [place] 00:00:00 00:00:00 CAIO [address] 2019-09-03 2019-09-03 [facility] [id number] [place] 00:00:00 00:00:00 CAIO [address] 2019-08-28 2019-08-28 [facility] [id number] 356 [place] 00:00:00 00:00:00 CAIO [address] 2019-08-28 2019-08-28 Outpatient JUAN [facility] [id number] [place] 00:00:00 00:00:00 CAIO [address] 2019-08-28 2019-08-28 Outpatient JUAN [facility] [id number] 356 [place] 00:00:00 00:00:00 CAIO [address] 2019-06-03 2019-07-28 Telemedici Octavio [facility] [id number] 08:33:49 08:57:17 ne Visit Romero Pritchett [id number] [place] [id number] [facility] [id number] nal 085 Building Results Test Description Test Time Test Comments Results Result Comments Source ECG Pre/Post Op (in AM) 2019-12-31 10:27:35 Test Item Value Reference Range Interpretation Comme nts Ventricular rate (test code = 253) 67 Atrial rate (test code = 255) 67 FL interval (test code = 266) 220 QRSD interval (test code = 260) 88 QT interval (test code = 264) 374 QTC interval (test code = 265) 395 P axis 1 (test code = 267) 77 QRS axis 1 (test code = 268) -43 T wave axis (test code = 270) -3 EKG impression (test code = 273) Sinus rhythm with 1st degree AV bl ock-Left axis deviation- [facility] lab [id number] 20:04:34PROCEDURE DETAILS Attending: Dr. Caio Martinez MD Interventional Fellow: Maxime Gamboa After obtaining informed consent, the patient was brought to the cardiac catheterization suite. He presents forstaged PCI of OM [employer] SH[employer].The right radial artery was located, skin was infiltrated was lidocaine. The artery was accessed using the Seldinger technique, and a 6F glidesheath was inserted. NTG and verapamilwere administered intra-arterially via sheath. Heparin was administered intravenously. FINDINGS:LM: no diseaseLAD: patent proximal and mid LAD stent LCx: OM1 and OM2 [employer] The LMT was engaged with theXB 3.5 Guide Catheter over a baby-J wire. Based on the guide shots, it appeared that the OM1 vesselwas larger and supplied more territory than the OM2 and thus it was decided to pursue the OM1 [employer]. Acorsair with Fielder FC was advanced to the lesion. A banquet pilot 200 was also used but the Fielder FC wasultimately used to cross the [employer]ED [employer] SHAPER. Angiography demonstrated that the wire appeared to be in the vessel architecture. The corsair was advanced with blood return. The fielder was exchanged for a long sionblue. A second penny blue was advanced to the distal LCX. The OM1 was dilated with a 1.5x15 mm semicompliant balloon and then 2x15 mm semicompliant balloon. A 2.5x18 mm Xience CASE was placed from the proximal LCX into the OM1. There was difficulty delivering another stent thru this stent, and thus the stent was post-dilated with a 3x12 mm NC balloon. This allowed for the delivery of a 2.5x20 mm Synergy CASE to the OM1. Final angiography revealed no evidence of dissection or perforation; there was TIMI3 flow in the circumflex system. There is mild residual disease in the OM1. The mid LCX is pinched by the stent with 40% stenosis but MERCY 3 flow. HEMOSTASIS: TR Band inflated to 15 cc of air EQUIPMENT/ANTICOAGULATION: Right Radial [id number] Sheath XB 3.5 Guide Catheter Penny Blue, sg SINGH, banquet pilot 200 coronary wire Anticoagulation: Heparin with ACT >250 sec prior to procedure CONCLUSION: - 2.5x18 mm Xience CASE was placed from the proximal LCX into the OM1- 2.5x20 mm Synergy CASE to the OM1 LOURDES N: 1. ASA 81mg daily2. Clopidogrel 75mg daily . 3. Cardiac medical therapy and aggressive risk factor modification. Cardiac rehabilitation. 4. Transferred in stable condition5. Patient was instructed to follow-up with his PCP for anemia6. TR band per protocol. Discharge in 6 hours ANESTHESIAUnder my supervision, 2 mg of versed was administered intravenously for moderate sedation. Pulse oxymetry, heart rate and blood pressure were continuously measured by an independent trained observer present. 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 Interpretation Abnormal (test code = 33615-2) [facility] MethodistSm[facility] [id number] 09:36:16 Test Item Value Reference Range Interpretation Comments Platelet slide review (test code Severiano adequate = 01032-2) [facility] MethodistActivated clotting [id number] 08:51:57 Test Item Value Reference Range Interpretation Comments Activated clotting time 429 96- 152 sec H Oper ator Name: Watson (test code = 5298) Weston ce ID: [id number] Lab Interpretation (test Abnormal code = 52072-5) [facility] MethodistCBC with platelet and llguygosgqwj9963-99-57 08:39:57 Test Item Value Reference Range Interpretation Comments WBC (test code = 83153-1) 6.54 4.50- 11.00 k/uL RBC (test code = 72057-4) 2.51 m/uL 4.4-6 L HGB (test code = 718-7) 6.8 g/dL 14-18 LL HGB results called to and read dhruv k by _ANALI MCLEAN /WTCL (name/location) at _ 08:39 12/30/2019 __(date/time) b y _AK_. HCT (test code = 4544-3) 20.9 % 41-51 L MCV (test code = 787-2) 83.3 fL 82-100 MCH (test code = 785-6) 27.1 pg 27-34 MCHC (test code = 786-4) 32.5 g/dL 31-37 RDW - SD (test code = 58.3 fL 37-55 H 69143-8) MPV (test code = 83125-0) 9.9 fL 8.8-13.2 Platelet count (test code 198 150- 400 k/uL = 56541-3) Nucleated RBC (test code 0.00 /100 WBC = 43311-2) Neutrophils (test code = 74.7 % 39-69 H 87337-0) Lymphocytes (test code = 10.7 % 25-45 L 17043-8) Monocytes (test code = 10.1 % 0-10 H 07003-1) Eosinophils (test code = 3.4 % 0-5 99938-1) Basophils (test code = 0.6 % 0-1 60808-9) Immature granulocytes 0.5 % 0-1 "Immat ure (test code = 24660-5) granul ocytes" (promyelocytes, myelocytes, metamyelocytes) Lab Interpretation (test Abnormal code = 47832-2) [facility] MethodistPOC [id number] 08:22:58 Test Item Value Reference Range Interpretation Comments POC sodium (test code = 127 mmol/L 135-148 L 2947-0) POC potassium (test 4.4 mmol/L 3.5-5 code = 6298-4) POC chloride (test code 93 mmol/L 99-109 L = 2069-3) POC CO2 (test code = 23 mmol/L 24-31 L 91202-5) POC glucose (test code 100 mg/dL 65-99 H = 2339-0) POC BUN (test code = 21 mg/dL 8-24 6299-2) POC creatinine (test 1.5 mg/dl 0.7-1.2 H code = 58204-4) POC hematocrit (test 24 % 41-51 L code = 4544-3) POC anion gap (test 16 mmol/L 8-20 Plaster Foreman Name: code = [id number]) Rowena Galloway ID: [id number] Lab Interpretation Abnormal (test code = 88739-6) [place] MethodistEstimated [id number] 08:22:58 Test Item Value Reference Range Interpretation Comments Estimated GFR (test 43 mL/min/1.73 m2 A Caterg ory Units code = 28170-8) Interpretati onG1 >=90 Adela l or highG2 60-89 Mildly decrease dG3a 45-59 Mil dly to moderately decr dogqhZ1w 30-44 Moderately to s everely decreasedG4 15-29 Severe ly decreasedG5 <15 Kidney jemma lureThe eGFR was calcul ated using the Chron ic Kidney Disease Epidemiology Collaboration ( CKD-EPI) equation. Interpretation is based on recommendati ons of the National [facility]Kid[facility] ey Disease Outcome s Quality Initiat misa (NKF-KDOQI) pub lished in 2013. Lab Interpretation Abnormal (test code = 02710-5) Golden DeleonECG 12 pcga2216-24-41 15:53:50 Test Item Value Reference Range Interpretation Comments Ventricular rate (test 60 code = 253) Atrial rate (test code = 60 255) FL interval (test code = 206 266) QRSD interval (test code 92 = 260) QT interval (test code = 440 264) QTC interval (test code 440 = 265) P axis 1 (test code = 36 267) QRS axis 1 (test code = -38 268) T wave axis (test code = -9 270) EKG impression (test Normal sinus code = 273) rhythm-Left axis deviation-Inferior infarct (cited on or before 17-DEC-2019)-Abnormal ECG-- [facility] MethodfreddyCat lab vzausinab0086-59-03 18:04:34PROCEDURE DETAILS Attending: Dr. Caio Martinez MD Interventional Fellow: Elliot Augustine MD EQUIPMENT/ANTICOAGULATION: Right Radial Bturgl7O Sheath XBLAD 4.0 Guide Catheter Penny Blue coronary wireAnticoagulation: Angiomax bolus and Infusion with ACT >250 sec prior to procedure The LMT was engaged with the XBLAD 4.0 Guide Catheter and a Penny Blue coronary wire was advanced into the distal LAD. The lesion in the mid LAD was pre-dilated with a 2.5 semi-compliant balloon and stented with a 3.0x38 Resolute Hackett. Post-dilation with 3.0x20 Euphora NC balloon. The lesion in the proximal LAD wasdirect stented with 4.0x8 mm Resolute hannah CASE.Final angiography revealed no evidence of dissection or perforation; there was MERCY 3 flow and 0% residual stenosis. HEMOSTASIS: TR Band inflated to 15 ccof air PLAN: 1. ASA 81mg daily2. Clopidogrel 75mg daily . 3. Cardiac medical therapy and aggressive risk factor modification. Cardiac rehabilitation. 4. Transferred in stable condition5. Plan for staged intervention on OM 1 and 2 CTOs in 3-4 weeks. ANESTHESIAUnder my supervision, 2 mg of versed were ad ministered intravenously for moderate sedation. Pulse oxymetry, heart rate and blood pressure were continuously measured by an independent trained observer present. I spent 40 minutes of face to face attendance with the patient during sedation.[place] MethodistType and [id number] 11:37:00 Test Item Value Reference Range Interpretation Comments ABO grouping (test code = 883-9) A Rh type (test code = 61536-9) POS Antibody screen (gel) (test code = NEG 890-4) [place] MethodistUrine [id number] 12:00:00 Test Item Value Reference Range Interpretation Comments Result (test code = 6463-4) No growth [facility]-Glucose tcvzi8294-18-52 11:52:00 Test Item Value Reference Range Interpretation Comments POC-Glucose Meter (test 110 mg/dL 70-110 : TE STED AT [facility] code = 1538) [address] [facility], 770 30: Plaster Foreman/Techni vinny ID = [id number] for NANETTE HOLLEY S Lab Interpretation (test Normal code = 69218-0) [facility]-GLUCOSE [id number] 11:52:00 Test Item Value Reference Range Interpretation Comments POC-GLUCOSE METER 110 mg/dL 70-110 : TESTED A T [facility] 6720 (BEAKER) (test code = GISELAMICHAELA Murphy [facility], 1538) [address]: Plaster Foreman/Techni vinny ID = [id number] for PRINCESS TAWANDA CBC (Hemogram only)2019-12-01 07:38:00 Test Item Value Reference Range Interpretation Comments WBC (test code = 6690-2) 6.1 3.5- 10.5 K/L RBC (test code = 789-8) 3.05 4.63- 6.08 M/L L MCHC (test code = 786-4) 30.7 32.3- 36.5 GM/DL L Hematocrit (test code = 4544-3) 25.7 % 40.1-51 L MCV (test code = 787-2) 84.3 fL 79-92.2 MCH (test code = 785-6) 25.9 pg 25.7-32.2 RDW (test code = 788-0) 18.3 % 11.6-14.4 H Platelets (test code = 777-3) 224 150- 450 K/CU MM MPV (test code = 75061-0) 10.6 fL 9.4-12.4 nRBC (test code = 413) 0 0- 0 /100 WBC Lab Interpretation (test code = Abnormal 30381-1) [facility] (HEMOGRAM ONLY)2019-12-01 07:38:00 Test Item Value Reference Range Interpretation Comments WHITE BLOOD CELL COUNT (BEAKER) 6.1 K/ L 3.5-10.5 (test code = 775) RED BLOOD CELL COUNT (BEAKER) 3.05 M/ L 4.63-6.08 L (test code = 761) HEMOGLOBIN (BEAKER) (test code = 7.9 GM/DL 13.7-17.5 L 410) HEMATOCRIT (BEAKER) (test code = 25.7 % 40.1-51.0 L 411) MEAN CORPUSCULAR VOLUME (BEAKER) 84.3 fL 79.0-92.2 (test code = 753) MEAN CORPUSCULAR HEMOGLOBIN 25.9 pg 25.7-32.2 (BEAKER) (test code = 751) MEAN CORPUSCULAR HEMOGLOBIN CONC 30.7 GM/DL 32.3-36.5 L (BEAKER) (test code = 752) RED CELL DISTRIBUTION WIDTH 18.3 % 11.6-14.4 H (BEAKER) (test code = 412) PLATELET COUNT (BEAKER) (test 224 K/CU MM 150-450 code = 756) MEAN PLATELET VOLUME (BEAKER) 10.6 fL 9.4-12.4 (test code = 754) NUCLEATED RED BLOOD CELLS 0 /100 WBC 0-0 (BEAKER) (test code = 413) Basic Metabolic [id number] 07:26:00 Test Item Value Reference Range Interpretation Comments Sodium (test code = 135 meq/L 136-145 L 2951-2) Potassium (test code = 3.3 meq/L 3.5-5.1 L 2823-3) Chloride (test code = 102 meq/L 98-107 5-0) CO2 (test code = 26 meq/L 22-29 2027-9) BUN (test code = 14 mg/dL 7-21 3094-0) Creatinine (test code 1.00 mg/dL 0.57-1.25 = 2160-0) Glucose (test code = 95 mg/dL 70-105 2345-7) Calcium (test code = 8.3 mg/dL 8.4-10.2 L 27275-3) EGFR (test code = 72 mL/min/1.73 [place] [address]-9) NOT ACCURATE CREATININE CLEARANCE IN PREDICTING GLOMERULAR FILTRATION RATE . ESTIMATED GFR I S NOT APPLICABLE FOR DIALYSIS PATIENTS. RADHA (test code = RADHA) Plaster Foreman ID - EDASI Lab Interpretation Abnormal (test code = 89818-9) [facility] 07:26:00 Test Item Value Reference Range Interpretation Comments Magnesium (test code = 1.8 mg/dL 1.6-2.6 29984-0) RADHA (test code = RADHA) Plaster Foreman ID - EDASI Lab Interpretation (test Normal code = 60451-4) [facility] Center[facility]2020-09-[facility] 07:26:00 Test Item Value Reference Range Interpretation Comments Phosphorus (test code = 3.2 mg/dL 2.3-4.7 2777-1) RADHA (test code = RADHA) Plaster Foreman ID - EDASI Lab Interpretation (test Normal code = 98531-2) [facility]US2020-09-22 07:26:00 Test Item Value Reference Range Interpretation Comments PHOSPHORUS (BEAKER) (test code = 3.2 mg/dL 2.3-4.7 604) Plaster Foreman ID - NCBQNUSZMWWJPP4184-59-92 07:26:00 Test Item Value Reference Range Interpretation Comments MAGNESIUM (BEAKER) (test code = 1.8 mg/dL 1.6-2.6 627) Plaster Foreman ID - EDASIBASIC METABOLIC [id number] 07:26:00 Test Item Value Reference Range Interpretation Comments SODIUM (BEAKER) 135 meq/L 136-145 L (test code = 381) POTASSIUM (BEAKER) 3.3 meq/L 3.5-5.1 L (test code = 379) CHLORIDE (BEAKER) 102 meq/L 98-107 (test code = 382) CO2 (BEAKER) (test 26 meq/L 22-29 code = 355) BLOOD UREA NITROGEN 14 mg/dL 7-21 (BEAKER) (test code = 354) CREATININE (BEAKER) 1.00 mg/dL 0.57-1.25 (test code = 358) GLUCOSE RANDOM 95 mg/dL 70-105 (BEAKER) (test code = 652) CALCIUM (BEAKER) 8.3 mg/dL 8.4-10.2 L (test code = 697) EGFR (BEAKER) (test 72 mL/min/1.73 ESTIMA SLY GFR IS code = 1092) sq m NOT ACCURATE CREATININE CLEARANCE IN PREDICTING GLOMERULAR FILTRATION RATE . ESTIMATED GFR I S NOT APPLICABLE FOR DIALYSIS PATIEN TS. Plaster Foreman ID - EDASICalcium, [id number] 07:05:00 Test Item Value Reference Range Interpretation Comments Calcium, Ion (test code = 1993-) 1.08 mmol/L 1.12-1.27 L pH, Blood (test code = 94067-9) 7.42 Lab Interpretation (test code = Abnormal 84918-5) [facility] CenterCALCIUM, [id number] 07:05:00 Test Item Value Reference Range Interpretation Comments CALCIUM IONIZED (BEAKER) (test 1.08 mmol/L 1.12-1.27 L code = 698) PH, BLOOD (BEAKER) (test code = 7.42 1810) POCT-GLUCOSE [id number] 06:07:00 Test Item Value Reference Range Interpretation Comments POC-GLUCOSE METER 82 mg/dL 70-110 : TESTED A T [facility] 6720 (BEAKER) (test code = [employer] [facility], 1538) [address]: Plaster Foreman/Techni vinny ID = [id number] for MAHAMED HERNANDEZA POCT-GLUCOSE [id number] 21:49:00 Test Item Value Reference Range Interpretation Comments POC-GLUCOSE METER 121 mg/dL 70-110 H : TESTED A T [facility] 6720 (BEAKER) (test code = [facility], 1538) [address]: Plaster Foreman/Techni vinny ID = [id number] for ELVIS SILVEIRA Hemoglobin and [id number] 20:28:00 Test Item Value Reference Range Interpretation Comments Hemoglobin (test code = 7.8 13.7- 17.5 GM/DL L 786-4) Hematocrit (test code = 25.3 % 40.1-51 L 4544-3) RADHA (test code = RADHA) Plaster Foreman ID - [id number] Lab Interpretation (test Abnormal code = 31594-4) [facility] CenterHEMOGLOBIN AND [id number] 20:28:00 Test Item Value Reference Range Interpretation Comments HEMOGLOBIN (BEAKER) (test code = 7.8 GM/DL 13.7-17.5 L 410) HEMATOCRIT (BEAKER) (test code = 25.3 % 40.1-51.0 L 411) Plaster Foreman ID - 6000POCT-GLUCOSE RAFOH2262-43-66 16:56:00 Test Item Value Reference Range Interpretation Comments POC-GLUCOSE METER 154 mg/dL 70-110 H : TESTED A T [facility] 6720 (BEAKER) (test code = [facility], 1538) [address]: Plaster Foreman/Techni vinny ID = [id number] for PRINCESS TAWANDA HEMOGLOBIN AND [id number] 13:08:00 Test Item Value Reference Range Interpretation Comments HEMOGLOBIN (BEAKER) (test code = 7.5 GM/DL 13.7-17.5 L 410) HEMATOCRIT (BEAKER) (test code = 25.0 % 40.1-51.0 L 411) Plaster Foreman ID - [id number], [id number] 09:35:00 Test Item Value Reference Range Interpretation Comments ABO Grouping (test code = 2588) A Rh Factor (test code = 2589) POS [facility] CenterUrinalysis w/Microscopic + Reflex to Culture 2019-11-30 08:05:00 Test Item Value Reference Range Interpretation Comments Color, UA (test code = Yellow 5778-6) Clarity, UA (test code = Hazy 5767-9) Specific Ringle, UA 1.031 1.001-1.035 (test code = 5811-5) pH, UA (test code = 5.5 5.0-8.0 5803-2) Protein, UA (test code = 20 mg/dL Negative A 26154-2) Glucose, UA (test code = Negative Negative 365) Ketones, UA (test code = Trace Negative A 2514-8) Bilirubin, UA (test code Negative Negative = 68741-4) Blood, UA (test code = Negative Negative 27673-1) Nitrite, UA (test code = Negative Negative 5802-4) Leukocytes, UA (test code Large Negative A = 5799-2) Urobilinogen, UA (test 0.2 mg/dL 0.2-1 code = 45186-4) RBC, UA (test code = 26 /HPF 67238-5) WBC, UA (test code = 265 /HPF 5821-4) Bacteria, UA (test code = Occasional 17844-3) Mucus (test code = Rare 8247-9) Hyaline Casts, UA (test 2 /LPF code = 13058-8) Specimen Source (test code = 2795) RADHA (test code = RADHA) Plaster Foreman ID - [auto]Plaster Foreman ID - tech Lab Interpretation (test Abnormal code = 35074-2) [facility] Center[facility]INALYSIS W/ REFLEX URINE [id number] 08:05:00 Test Item Value Reference Range Interpretation Comments COLOR (BEAKER) (test code = 470) Yellow CLARITY (BEAKER) (test code = 469) Hazy SPECIFIC GRAVITY UA (BEAKER) (test 1.031 1.001-1.035 code = 468) PH UA (BEAKER) (test code = 467) 5.5 5.0-8.0 PROTEIN UA (BEAKER) (test code = 20 mg/dL Negative A 464) GLUCOSE UA (BEAKER) (test code = Negative Negative 365) KETONES UA (BEAKER) (test code = Trace Negative A 371) BILIRUBIN UA (BEAKER) (test code = Negative Negative 462) BLOOD UA (BEAKER) (test code = Negative Negative 461) NITRITE UA (BEAKER) (test code = Negative Negative 465) LEUKOCYTE ESTERASE UA (BEAKER) Large Negative A (test code = 466) UROBILINOGEN UA (BEAKER) (test 0.2 mg/dL 0.2-1.0 code = 463) RBC UA (BEAKER) (test code = 519) 26 /HPF WBC UA (BEAKER) (test code = 520) 265 /HPF BACTERIA (BEAKER) (test code = Occasional 517) MUCUS (BEAKER) (test code = 1574) Rare HYALINE CASTS (BEAKER) (test code 2 /LPF = 514) SOURCE(BEAKER) (test code = 2795) Plaster Foreman ID - [auto]Plaster Foreman ID - techType and screen, brbpcnnye7832-03-58 07:22:00 Test Item Value Reference Range Interpretation Comments ABO/RH AUTOMATED (BEAKER) (test A POSITIVE code = 2260) Ab Scrn (test code = 890-4) NEGATIVE [facility] CenterFerritin2020-09-21 07:15:00 Test Item Value Reference Range Interpretation Comments Ferritin (test code = 27.83 ng/mL 5-275 2276-4) RADHA (test code = RADHA) Plaster Foreman ID - EDASI Lab Interpretation (test Normal code = 85197-9) [facility] CenterFERRITIN2020-09-21 07:15:00 Test Item Value Reference Range Interpretation Comments FERRITIN (BEAKER) (test code = 27.83 ng/mL 5.00-275.00 361) Plaster Foreman ID - EDASIIron, TIBC, % sat. (without ferritin)2019-11-30 06:54:00 Test Item Value Reference Range Interpretation Comments Iron (test code = 2498-4) 49.0 ug/dL 40-160 TIBC (test code = 2500-7) 346 ug/dL 250-450 Iron % Saturation (test 14 % 20-55 L code = 2502-3) RADHA (test code = RADHA) Plaster Foreman ID - EDASI Lab Interpretation (test Abnormal code = 28510-2) [facility] CenterIRON, TIBC, % SAT. (WITHOUT FERRITIN)2019-11-30 06:54:00 Test Item Value Reference Range Interpretation Comments IRON (BEAKER) (test code = 547) 49.0 ug/dL 40.0-160.0 TOTAL IRON BINDING CAPACITY 346 ug/dL 250-450 (BEAKER) (test code = 769) IRON % SATURATION (2) (BEAKER) 14 % 20-55 L (test code = 2590) Plaster Foreman ID - EDASIB-type Natriuretic Factor (BNP)2019-11-30 06:50:00 Test Item Value Reference Range Interpretation Comments BNP (test code = 10411-4) 257 pg/mL 0-100 H RADHA (test code = RADHA) Plaster Foreman ID - DB Lab Interpretation (test Abnormal code = 45348-1) [facility] CenterB-TYPE NATRIURETIC FACTOR (BNP)2019-11-30 06:50:00 Test Item Value Reference Range Interpretation Comments B-TYPE NATRIURETIC PEPTIDE (BEAKER) 257 pg/mL 0-100 H (test code = 700) Plaster Foreman ID - DBComprehensive metabolic [id number] 06:45:00 Test Item Value Reference Range Interpretation Comments Protein, Total (test 6.0 6.0- 8.3 gm/dL code = 2885-2) Albumin (test code = 3.3 g/dL 3.5-5 L 35398-8) Alkaline Phosphatase 101 U/L 40-150 (test code = 6768-6) Total Bilirubin (test 1.2 mg/dL 0.2-1.2 code = 1975-2) Sodium (test code = 137 meq/L 631-077 0645-2) Potassium (test code = 3.6 meq/L 3.5-5.1 2823-3) Chloride (test code = 102 meq/L 98-107 2075-0) CO2 (test code = 22 meq/L 22-29 2028-9) BUN (test code = 17 mg/dL 7-21 3094-0) Creatinine (test code 1.18 mg/dL 0.57-1.25 = 2160-0) Glucose (test code = 110 mg/dL 70-105 H 2345-7) Calcium (test code = 8.0 mg/dL 8.4-10.2 L 78626-7) AST (test code = 22 U/L 5-34 1920-8) ALT (test code = 17 U/L 6-55 1742-6) EGFR (test code = 59 mL/min/1.[place] [address]-3) NOT ACCURATE CREATININE CLEARANCE IN PREDICTING GLOMERULAR FILTRATION RATE . ESTIMATED GFR I S NOT APPLICABLE FOR DIALYSIS PATIENTS. RADHA (test code = RADHA) Plaster Foreman ID - DB Lab Interpretation Abnormal (test code = 39612-4) [facility] CenterPHOSPHORUS2020-09-21 06:45:00 Test Item Value Reference Range Interpretation Comments PHOSPHORUS (BEAKER) (test code = 3.4 mg/dL 2.3-4.7 604) Plaster Foreman ID - [id number] 06:45:00 Test Item Value Reference Range Interpretation Comments MAGNESIUM (BEAKER) (test code = 1.7 mg/dL 1.6-2.6 627) Plaster Foreman ID - DBCOMPREHENSIVE METABOLIC [id number] 06:45:00 Test Item Value Reference Range Interpretation Comments TOTAL PROTEIN 6.0 gm/dL 6.0-8.3 (BEAKER) (test code = 770) ALBUMIN (BEAKER) 3.3 g/dL 3.5-5.0 L (test code = 1145) ALKALINE PHOSPHATASE 101 U/L 40-150 (BEAKER) (test code = 346) BILIRUBIN TOTAL 1.2 mg/dL 0.2-1.2 (BEAKER) (test code = 377) SODIUM (BEAKER) (test 137 meq/L 136-145 code = 381) POTASSIUM (BEAKER) 3.6 meq/L 3.5-5.1 (test code = 379) CHLORIDE (BEAKER) 102 meq/L 98-107 (test code = 382) CO2 (BEAKER) (test 22 meq/L 22-29 code = 355) BLOOD UREA NITROGEN 17 mg/dL 7-21 (BEAKER) (test code = 354) CREATININE (BEAKER) 1.18 mg/dL 0.57-1.25 (test code = 358) GLUCOSE RANDOM 110 mg/dL 70-105 H (BEAKER) (test code = 652) CALCIUM (BEAKER) 8.0 mg/dL 8.4-10.2 L (test code = 697) AST (SGOT) (BEAKER) 22 U/L 5-34 (test code = 353) ALT (SGPT) (BEAKER) 17 U/L 6-55 (test code = 347) EGFR (BEAKER) (test 59 mL/min/1.73 ESTIMA SLY GFR IS code = 1092) sq m NOT ACCURATE CREATININE CLEARANCE IN PREDICTING GLOMERULAR FILTRATION RATE . ESTIMATED GFR I S NOT APPLICABLE FOR DIALYSIS PATIEN TS. Plaster Foreman ID - DBProthrombin time/[id number] 06:34:00 Test Item Value Reference Range Interpretation Comments Protime (test code = 15.7 11.9- 14.2 H 5902-2) seconds INR (test code = 1.28 <=5.90 6301-6) RADHA (test code = RADHA) Effective 08/06/2018: PT Reference Range ChangeNew: 11.9-14.2 Previous: 11.7-14.7 RECOMMENDED COUMADIN/WARFARIN INR THERAPY RANGESSTANDARD DOSE: 2.0-3.0 Includes: PROPHYLAXIS for venous thrombosis, systemic embolization; TREATMENT for venous thrombosis and/or pulmonary embolus.HIGH RISK: Target INR is 2.5-3.5 for patients wiht mechanical heart valves. Lab Interpretation Abnormal (test code = 08368-9) [facility] CenterPROTHROMBIN TIME/[id number] 06:34:00 Test Item Value Reference Range Interpretation Comments PROTIME (BEAKER) (test code = 15.7 seconds 11.9-14.2 H 759) INR (BEAKER) (test code = 370) 1.28 <=5.90 Effective 08/06/2018: PT Reference Range ChangeNew: 11.9-14.2 Previous: 11.7- 14.7RECOMMENDED COUMADIN/WARFARIN INR THERAPY RANGESSTANDARD DOSE: 2.0-3.0 Includes: PROPHYLAXIS for venous thrombosis, systemic embolization; TREATMENT for venous thrombosis and/or pulmonary embolus.HIGH RISK: Target INR is2.5-3.5 for patients wiht mechanical heart valves.POCT-GLUCOSE [id number] 06:33:00 Test Item Value Reference Range Interpretation Comments POC-GLUCOSE METER 119 mg/dL 70-110 H : TESTED A T [facility] 6720 (BEAKER) (test code = GISELAMICHAELA Murphy [facility], 1538) [address]: Plaster Foreman/Techni vinny ID = [id number] for HEDY RICHTER CBC with platelet count + automated [id number] 06:13:00 Test Item Value Reference Range Interpretation Comments WBC (test code = 6690-2) 8.5 3.5- 10.5 K/L RBC (test code = 789-8) 3.46 4.63- 6.08 M/L L MCHC (test code = 786-4) 30.4 32.3- 36.5 GM/DL L Hematocrit (test code = 4544-3) 28.9 % 40.1-51 L MCV (test code = 787-2) 83.5 fL 79-92.2 MCH (test code = 785-6) 25.4 pg 25.7-32.2 L RDW (test code = 788-0) 18.1 % 11.6-14.4 H Platelets (test code = 777-3) 258 150- 450 K/CU MM MPV (test code = 10928-7) 9.8 fL 9.4-12.4 nRBC (test code = 413) 0 0- 0 /100 WBC % Neutros (test code = 429) 70 % % Lymphs (test code = 430) 14 % % Monos (test code = 431) 12 % % Eos (test code = 432) 3 % % Baso (test code = 437) 1 % # Neutros (test code = 670) 5.98 1.78- 5.38 K/L H # Lymphs (test code = 414) 1.15 1.32- 3.57 K/L L # Monos (test code = 415) 1.02 0.30- 0.82 K/L H # Eos (test code = 416) 0.29 0.04- 0.54 K/L # Baso (test code = 417) 0.07 0.01- 0.08 K/L Immature Granulocytes-Relative 0 % 0-1 (test code = 2801) Lab Interpretation (test code = Abnormal 76358-8) [facility] W/PLT COUNT & AUTO [id number] 06:13:00 Test Item Value Reference Range Interpretation Comments WHITE BLOOD CELL COUNT (BEAKER) 8.5 K/ L 3.5-10.5 (test code = 775) RED BLOOD CELL COUNT (BEAKER) 3.46 M/ L 4.63-6.08 L (test code = 761) HEMOGLOBIN (BEAKER) (test code = 8.8 GM/DL 13.7-17.5 L 410) HEMATOCRIT (BEAKER) (test code = 28.9 % 40.1-51.0 L 411) MEAN CORPUSCULAR VOLUME (BEAKER) 83.5 fL 79.0-92.2 (test code = 753) MEAN CORPUSCULAR HEMOGLOBIN 25.4 pg 25.7-32.2 L (BEAKER) (test code = 751) MEAN CORPUSCULAR HEMOGLOBIN CONC 30.4 GM/DL 32.3-36.5 L (BEAKER) (test code = 752) RED CELL DISTRIBUTION WIDTH 18.1 % 11.6-14.4 H (BEAKER) (test code = 412) PLATELET COUNT (BEAKER) (test 258 K/CU MM 150-450 code = 756) MEAN PLATELET VOLUME (BEAKER) 9.8 fL 9.4-12.4 (test code = 754) NUCLEATED RED BLOOD CELLS 0 /100 WBC 0-0 (BEAKER) (test code = 413) NEUTROPHILS RELATIVE PERCENT 70 % (BEAKER) (test code = 429) LYMPHOCYTES RELATIVE PERCENT 14 % (BEAKER) (test code = 430) MONOCYTES RELATIVE PERCENT 12 % (BEAKER) (test code = 431) EOSINOPHILS RELATIVE PERCENT 3 % (BEAKER) (test code = 432) BASOPHILS RELATIVE PERCENT 1 % (BEAKER) (test code = 437) NEUTROPHILS ABSOLUTE COUNT 5.98 K/ L 1.78-5.38 H (BEAKER) (test code = 670) LYMPHOCYTES ABSOLUTE COUNT 1.15 K/ L 1.32-3.57 L (BEAKER) (test code = 414) MONOCYTES ABSOLUTE COUNT (BEAKER) 1.02 K/ L 0.30-0.82 H (test code = 415) EOSINOPHILS ABSOLUTE COUNT 0.29 K/ L 0.04-0.54 (BEAKER) (test code = 416) BASOPHILS ABSOLUTE COUNT (BEAKER) 0.07 K/ L 0.01-0.08 (test code = 417) IMMATURE GRANULOCYTES-RELATIVE 0 % 0-1 PERCENT (BEAKER) (test code = 2801) sanitation laborer [id number] 19:52:46Procedure details After obtaining informed consent, the patient was brought to the cardiac catheterization suite. The right radial artery was located, skin was infiltrated was lidocaine. The artery was accessed using the Seldinger technique, and a 6F glidesheath was inserted. NTG and verapamil were administered intra-arterially via sheath. Heparin was administered intravenously. An AL1 catheter wasadvanced over a "baby-J" wire and selective coronary angiography was performed, standard views were obtained. The right radial sheath was removed and TR band was applied Findings: LM: normal LAD: proximal 60% stenosis; moderate diffuse diseaseLCx: mild diffuse disease; om2 with [employer] segmentRCA: anomalous take off. Moderate diffuse atherosclerosis [...] to face attendance with the patient during sedation.[place] [id number] 12:26:54 Test Item Value Reference Range Interpretation Comments Sodium (test code = 2951-2) 126 135- 148 mEq/L L Potassium (test code = 2823-3) 5.6 3.5- 5.0 mEq/L H Chloride (test code = 2075-0) 94 98- 112 mEq/L L CO2 (test code = 2027-9) 19 24- 31 mEq/L L Anion gap (test code = 75133-3) 13@ANIO 7- 15 mEq/L BUN (test code = 3094-0) 23 mg/dL 8-23 Creatinine (test code = 2160-0) 1.60 mg/dL 0.7-1.2 H Glucose (test code = 2345-7) 83 mg/dL 65-99 Calcium (test code = 77073-6) 8.9 mg/dL 8.8-10.2 Lab Interpretation (test code = Abnormal 86362-1) [place] [facility] [id number] 13:49:53 Test Item Value Reference Range Interpretation Comments Sodium (test code = 124 135- 148 mEq/L L 2951-2) Potassium (test code = 5.9 3.5- 5.0 mEq/L H 2823-3) Chloride (test code = 98 98- 112 mEq/L 2074-0) CO2 (test code = 2027-) 16 24- 31 mEq/L L Anion gap (test code = 10@ANIO 7- 15 mEq/L 71093-3) BUN (test code = 3094-0) 30 mg/dL 8-23 H Creatinine (test code = 1.53 mg/dL 0.7-1.2 H 2160-0) Glucose (test code = 103 mg/dL 65-99 H 2345-7) Calcium (test code = 9.1 mg/dL 8.8-10.2 54295-8) Protein (test code = 6.7 g/dL 6.3-8.3 -[place] n 2885-2) 4.6-7.0 g/dL1 week 4.4-7 .6 g/dL7 months-1y ear 5.1-7 .3 g/dL1-2 years 5.6-7 .5 g/dL>3 years 6.0-8 .0 g/nH80-673 6.3-8 .3 g/dL Albumin (test code = 3.2 g/dL 3.5-5 L 1751-7) A/G ratio (test code = 0.9 0.7-3.8 1759-0) Alkaline phosphatase 111 U/L 40-129 (test code = 6768-6) AST (test code = 1920-8) 32 U/L 10-50 ALT (test code = 1742-6) 30 U/L 5-50 Total bilirubin (test 0.5 mg/dL 0-1.2 code = 1974-) Lab Interpretation (test Abnormal code = 69798-7) [facility] DeleonProthrombin time with [id number] 13:28:44 Test Item Value Reference Range Interpretation Comments Prothrombin time (test 15.1 11.5- 14.5 sec H code = 5902-2) INR (test code = 1.2 The Interna tional 51934-1) Normalized Rati o (INR) is a therapeuti c monitoring tool for patients who ar e stable on oral anticoagulant t herapy. An INR of 2.0-3 .0 is suggested for d eep vein thrombosis/pulm onary embolism. Lab Interpretation Abnormal (test code = 52925-3) [facility] Deleon
[2020-01-01] MEDS ORDERED: NA CHLORIDE 0.9% 250 ML ONE ×2 (07:58→10:43)
[2020-01-01] MEDS ORDERED: FUROSEMIDE 40 MG/4 ML VIAL ONE (08:04)
[2020-01-01 13:33] VITALS: BP 118/44; TEMP 97.7; O2SAT 99; BMI 31.0
== END 2020-01-01 15:14 | disposition home or self-care (01) ==
LOC: DS 07:30
PROVIDERS: ATTEND Internal Medicine Hematology & Oncology
DX: D50.0 Iron deficiency anemia secondary to blood loss (chronic) (principal); D63.1 Anemia in chronic kidney disease; I50.9 Heart failure, unspecified; I25.10 Atherosclerotic heart disease of native coronary artery without angina pectoris
CPT/HCPCS: 36415; 86900; 86850; 86901; 85018; 85014; 36430; J1940; P9016 ×2; J7050 ×2

== ENCOUNTER 2021-04-05 06:19 | Day surgery (SDC) | payer OTHER ==
--- NOTE | 2021-03-31 08:50 | RAD REPORT ---
EXAM DESCRIPTION: Cecilia Cloud (2 Views)03/31/2021 8:41 am CLINICAL HISTORY: Preop for wrist surgery COMPARISON: 2008 FINDINGS: The lungs appear clear of acute infiltrate. The heart is mildly enlarged IMPRESSION: No acute abnormalities displayed
[2021-03-31 09:03] LABS: Absolute Lymphocytes (CBC) 0.6 K/uL (0.7-4.9); Hematocrit 35.3 % (39.6-49.0); Lymphocytes % 11.1 % (15.3-44.8); MPV 8.4 fL (7.6-11.3)
[2021-03-31 09:07] LABS: Protime INR 1.05
[2021-03-31 09:08] LABS: Potassium 3.9 mmol/L (3.5-5.1)
--- NOTE | 2021-04-01 15:15 | EKG ---
Test Date: 2021-03-31 Test Time: 08:23:55 Customer Care Voice Consultant: ARAM MEASUREMENT RESULTS: Intervals: Rate: 57 TX: 188 QRSD: 116 QT: 460 QTc: 447 [place]: P: 38 TX: 188 QRS: -45 T: 19 INTERPRETIVE STATEMENTS: Sinus bradycardia Left anterior fascicular block Left ventricular hypertrophy with QRS widening Nonspecific T wave abnormality Abnormal ECG Compared to ECG 01/17/2004 11:27:00 Left anterior fascicular block now present Left ventricular hypertrophy now present T-wave abnormality now present Sinus rhythm no longer present Electronically Signed On 04-01-21 15:14:42 MASH PREPARATORY OPERATOR by Hiro Ruiz
[2021-04-05] MEDS ORDERED: CEFAZOLIN/NS 1gm 1 GM/50 ML BAG ONE (06:35)
[2021-04-05] MEDS ORDERED: NA CHLORIDE 0.9% 1,000 ML ONE (06:35)
[2021-04-05 06:58] VITALS: TEMP 97.8
[2021-04-05] MEDS ORDERED: MIDAZOLAM HCL 2 MG/2 ML INJ ONE (07:04)
[2021-04-05] MEDS ORDERED: FENTANYL CITR 100 MCG/2 ML ONE (07:04)
[2021-04-05] MEDS ORDERED: propofoL 200 MG/20 ML VIAL IV ONE (07:04)
[2021-04-05] MEDS ORDERED: LIDOCAINE 1% MPF 30 ML VIAL ONE (07:05)
[2021-04-05] MEDS ORDERED: NA CHLORIDE 0.9% 50 ML ONE (07:05)
[2021-04-05] MEDS ORDERED: LIDOCAINE 2% MPF 5 ML VIAL ONE (07:05)
[2021-04-05] MEDS ORDERED: BUPIVACAINE 0.25% PF 10 ML VIAL ONE (07:14)
--- NOTE | 2021-04-05 08:27 | P.BOP ---
Preoperative diagnosis: right carpal tunnel syndrome Postoperative diagnosis: same Primary procedure: right open carpal tunnel release Front Of House Manager: NONE,NONE Estimated blood loss: 3 cc Specimen: none Findings: see dictation Anesthesia: General Complications: None Implants: none Fluids & blood products: per anesthesia record; TT: 34 mins @ 300 mmHg Transferred to: Recovery Room Condition: Good
[2021-04-05 09:10] VITALS: BP 136/63; O2SAT 97
[2021-04-05] MEDS ORDERED: GLYCOPYRROLATE 0.2 MG/ML SYR ONE (09:28)
[2021-04-05] MEDS ORDERED: Phenylephrine HCl 10 MG/ML 1 ML VIAL ONE (09:29)
[2021-04-05] MEDS ORDERED: EPHEDRINE SULF 50 MG/ML VIAL ONE (09:31)
== END 2021-04-05 09:25 | disposition home or self-care (01) ==
LOC: OR 06:19
PROVIDERS: ATTEND Orthopaedic Surgery Sports Medicine
PROC: 01N50ZZ Release Median Nerve, Open Approach (ICD-10-PCS; principal; 2021-04-05 07:30)
DX: G56.01 Carpal tunnel syndrome, right upper limb (principal); Z20.822 Contact with and (suspected) exposure to COVID-19
CPT/HCPCS: 93005; 85025; 80048; 36415; 85610; 82947 ×2; 85730; 71046; 64721; U0002; J2704; J2370; J2250; J3010; J0690; J7030